=== PATIENT | male | born 1950 | race Caucasian/White ===

== ENCOUNTER → 2019-01-04 10:37 | Outpatient (CLI) | payer MEDICARE, OTHER, SELFPAY ==
[2019-01-04 10:27] VITALS: BMI 42.6
--- NOTE | 2019-01-04 10:40 | RAD_ITS ---
STUDY: X-RAY - PELVIS AND RIGHT HIP REASON FOR EXAM: Right hip pain. TECHNIQUE: 2 views of the pelvis and hip. COMPARISON: None. FINDINGS: There are small pelvic phleboliths. Normal bilateral sacroiliac joints and visualized sacrum. Normal bilateral superior and inferior pubic rami. Normal pubic symphysis. Normal bilateral ischial tuberosities. There are marginal osteophytes of the right femoral head, severe joint space narrowing at the superior medial aspect and subchondral cystic change of the femoral head and acetabulum. RAD/HIP, UNI W/ Pelvis 2-3 Views IMPRESSION: Right hip arthrosis. Electronically Signed: Attila Dupont MD at 13:14 EDT Tel , Service support ,
== END ==
PROVIDERS: Family Provider Internal Medicine; PCP Internal Medicine; Referring Provider Orthopaedic Surgery; Visit Provider Orthopaedic Surgery
DX: M25.551 Pain in right hip (principal)
CPT/HCPCS: 73502

== ENCOUNTER → 2019-02-01 13:54 | Outpatient (CLI) | payer MEDICARE, OTHER, SELFPAY ==
[2019-01-04 10:27] VITALS: BMI 42.6
[2019-02-01 14:54] LABS: Hematocrit 40.4 % (40-54); Hemoglobin 13.8 g/dL (13.0-16.5); Mean Corp Hgb Conc 34.2 g/dL (32-36); Mean Corpuscular Hgb 31.6 pg (27.0-32.0); Mean Corpuscular Volume 92.4 fL (80-94); Platelet Count 194 K/mm3 (150-450); RBC Distribution Width CV 12.7 % (11.6-14.6); RBC Distribution Width SD 43.2 fl (35.1-43.9); Red Blood Count 4.37 M/mm3 (4.6-6.2); White Blood Count 7.3 K/mm3 (4.4-11.0)
[2019-02-01 14:58] LABS: Protein, Urine (Random) 14.7 mg/dL (<11.9); Protein:Creat Ratio 90 mg/g CRE (0-200)
[2019-02-01 15:27] LABS: Albumin, Serum 3.6 g/dL (3.2-5.0); BUN 18 mg/dL (7-18); Calcium,Total 8.8 mg/dL (8.5-10.1); Chloride 111 mmol/L (98-107); Creatinine, Serum 1.38 mg/dL (0.70-1.30); EST Glomerular Filtration Rate 54 mL/min (>60); Est Glom Filt Rate - Afr Amer 66 mL/min (>60); Glucose 86 mg/dL (74-106); Phosphorus 2.9 mg/dL (2.5-4.9); Potassium 4.5 mmol/L (3.5-5.1); Sodium Level 142 mmol/L (136-145)
[2019-02-01 15:35] LABS: Vitamin D,25 Hydroxy 28.2 ng/mL (29.95-100.01)
[2019-02-01 15:37] LABS: PTHIN 115.1 pg/mL (18.4-80.1)
== END ==
PROVIDERS: Family Provider Internal Medicine; PCP Internal Medicine; Referring Provider Internal Medicine Nephrology; Visit Provider Internal Medicine Nephrology
DX: N18.3 Chronic kidney disease, stage 3 (moderate) (principal)
CPT/HCPCS: 36415; 80069; 82306; 82570; 83970; 84156; 85027

== ENCOUNTER 2019-03-12 13:30 | Outpatient (RCR) | payer MEDICARE, OTHER, SELFPAY ==
[2019-01-04 10:27] VITALS: BMI 42.6
--- NOTE | 2019-01-12 15:29 | HP.PTEVAL ---
Patient's Visit Information DAYSI GASTELUM is a 68 year old M referred to Physical Therapy by Lenin Davis DO with a diagnosis of R hip OA. Date of Evaluation: 01/12/19 Physical Therapist: EL Epperson - Visit Plan Frequency: 2-3x /Week Duration: 2 Months Plan: 2-3X/ week for 4-8 weeks for R hip flexability ( quad, ER and IR of the hip, hamstrings and gastroc), strengthening of the R hip, gait training, functional activities such as stairs and sit to stands with HEP (trial of foam rolling??) - Subjective Findings: Pt spent 39 years in . Up until 2010 he has not run or done any exercises. Pt put on 50#. Pts R hip has started to bother him and getting worse overtime. He has been doing less and less cause it hurts to move around. 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 He has had some knee issues but they have gone away. He feels out of balance and hard to go down stairs and has to use the railing and goes step to pattern. He has been getting steadily worse. He has a Level 3 kidney issue and can only take Tylenol if he is out walking around but tries not to take more than 3 doses in a day. Today his hip hurts and kind of torques the knee. He has been a pt of [facility] because of Dr Hendricks. It is hard for him to do stuff around the house and he has 5 acres. said that his hip does not look good and wants him to lose 20# and has to do PT. He has not tried PT for his hip at this time. Pt has pain in the R groin and hard to lay. He has a CPAP machine. He loosens up after he moves in the morning. He wears the support stockings at work cause he sits a lot. - Pain R hip pain Pain Intensity (Out of 10): 0 Pain Intensity Range: 6 Comment: Walking - Objective Gait: Walks with decrease stance time on the R LE and very antalgic gait. Pt has decreased hip flexion AROM ( could get to about 100 degrees B with min A by therapist to get him to that range), He has no hip IR B and decreased B hip ER. LE MMT: R hip flex 4/5 and L hip flex 4+/5, R hip abd 4/5 and L 4+/5, R hip ext 3+/5 and L 4-/5, he is able to heel raise without UE assist and he is able to toe raise within a restricted ROM. B knee flex and knee ext 4+/5. Pt has extremely tight Quads, Hamstrings, gastroc and hip ER/IR. Sit to stand: is able to stand without use of UE but has some compensation to him fluid movment. - Goals Goal 1:: I HEP Goal Time Frame: 4-6 Weeks Goal 2:: Decrease R hip pain to 1/10 with walking Goal Time Frame: 4-6 Weeks Goal 3:: Increase hip strength on the R by 1/2 muscle grade (LE MMT: R hip flex 4/5 and L hip flex 4+/5, R hip abd 4/5 and L 4+/5, R hip ext 3+/5 and L 4-/5, he is able to heel raise without UE assist and he is able to toe raise within a restricted ROM. B knee flex and knee ext 4+/5). Goal Time Frame: 4-6 Weeks Goal 4:: Walk with less of an antalgic gait with more equal stance time. Goal Time Frame: 4-6 Weeks - Rehabilitation Potential Rehabilitation Potential: Good - Anticipated Interventions Patient/Client Instruction: Educate patient on: Condition For the Purpose of:: To decrease pain, To increase ROM, To improve nutrient delivery to tissue, To improve muscle performance and motor function, To improve ability to perform ADL's, To increase tolerance to activity/condition/position, To improve performance and independence with ADL's, To improve ability of physical actions for home/community/work/leisure, To improve gait and locomotor functions, To improve health of tissue, To decrease soft tissue restriction, To increase flexibility/ROM Therapeutic Exercise to Include: Strength training, Postural training, Flexibilty training, Gait and locomotor training, Passive ROM, Active ROM, Dynamic Lumbar Stabilization For the Purpose of:: To decrease pain, To increase ROM, To improve nutrient delivery to tissue, To improve muscle performance and motor function, To improve ability to perform ADL's, To increase tolerance to activity/condition/position, To improve performance and independence with ADL's, To improve ability of physical actions for home/community/work/leisure, To improve gait and locomotor functions, To improve health of tissue, To increase flexibility/ROM Functional Training to Include: Gait training For the Purpose of:: To improve gait and locomotor functions Thank you for the opportunity to evaluate your patient. For Medicare and Medicare HMO plans, please review the plan of care and approve it. It will need to be FAXED BACK to us at [phone] for Medicare purposes. For Medicare only, by signing this I certify the plan of care. Please let me know if there are questions or concerns regarding this plan of care. Physician Signature: Date:
--- NOTE | 2019-02-05 13:13 | HP.PTREVAL ---
Lenin Davis, DO, It has been my pleasure to treat DAYSI GASTELUM over the last 10 visits for R hip OA. Please see the progress note below for an update on the physical therapy plan of care! Subjective: He has pain with activities... can still do them but hurts. He can sit with no pain for sure. Objective/Function: Gait: walks with decrease stance time on the R LE. LE MMT: R hip flex 4/5 and L hip flex 4+/5, R hip abd 4/5 and L 4+/5. B knee flex and knee ext 4+/5). Stairs: up and down stairs recip with railing with increase pain on the R knee. Plan Plan: (Will shoot for 1-2X/ week spread out and pt continue on his own somewhat). 2-3X/ week for 4-8 weeks for R hip flexability (quad, ER and IR of the hip, hamstrings and gastroc), strengthening of the R hip, gait training, functional activities such as stairs and sit to stands with HEP (trial of foam rolling??) Goals Goal 1:: I HEP Goal Time Frame: 4-6 Weeks Goal Progress: Goal Met Goal 2:: Decrease R hip pain to 1/10 with walking Goal Time Frame: 4-6 Weeks Goal 3:: Increase hip strength on the R by 1/2 muscle grade (LE MMT: R hip flex 4/5 and L hip flex 4+/5, R hip abd 4/5 and L 4+/5, R hip ext 3+/5 and L 4-/5, he is able to heel raise without UE assist and he is able to toe raise within a restricted ROM. B knee flex and knee ext 4+/5). Goal Time Frame: 4-6 Weeks Goal 4:: Walk with less of an antalgic gait with more equal stance time. Goal Time Frame: 4-6 Weeks Anticipated Interventions Patient/Client Instruction: Educate patient on: Condition For the Purpose of:: To decrease pain, To increase ROM, To improve nutrient delivery to tissue, To improve muscle performance and motor function, To improve ability to perform ADL's, To increase tolerance to activity/condition/position, To improve performance and independence with ADL's, To improve ability of physical actions for home/community/work/leisure, To improve gait and locomotor functions, To improve health of tissue, To decrease soft tissue restriction, To increase flexibility/ROM Therapeutic Exercise to Include: Strength training, Postural training, Flexibilty training, Gait and locomotor training, Passive ROM, Active ROM, Dynamic Lumbar Stabilization For the Purpose of:: To decrease pain, To increase ROM, To improve nutrient delivery to tissue, To improve muscle performance and motor function, To improve ability to perform ADL's, To increase tolerance to activity/condition/position, To improve performance and independence with ADL's, To improve ability of physical actions for home/community/work/leisure, To improve gait and locomotor functions, To improve health of tissue, To increase flexibility/ROM Functional Training to Include: Gait training For the Purpose of:: To improve gait and locomotor functions Please do not hesitate to contact me at [phone] by phone or if you have questions or concerns regarding this new plan of care! Sincerely, Vy Horta MPT
--- NOTE | 2019-03-12 14:09 | HP.PTDCSUM ---
HP - PT D/C Summary It has been my pleasure to treat DAYSI GASTELUM under orders from Lenin Davis DO, for the diagnosis of R hip OA for a total of 19 visit(s). Discharge Date: 03/12/19 Please see the following information for a summary of their discharge status. - Subjective Subjective: Yesterday moringin he hyperextend his R knee on the last step and torqued it pretty good. - Pain R hip pain Pain Intensity (Out of 10): 4 R knee pain Pain Intensity (Out of 10): 7 - Overall Improvement % Improvement: 25 - Objective Objective/Function: Gait: still walks with slight decrease stance time on the R but more equal weight bearing since the initial eval. LE MMT: R hip flex 4-/5, R hip abd 4+/5, R knee flex 3+/5 and R knee ext 4-/5 (pt is more sore today due to stepping down off of a step at home). Stairs: Up and down recip with increase hesitancy descending the stairs as pt feels that his R knee will give out and uses B rails. - Goals Goal 1:: I HEP Goal Progress: Goal Met Goal 2:: Decrease R hip pain to 1/10 with walking Goal Progress: Progressing Goal 3:: Increase hip strength on the R by 1/2 muscle grade (LE MMT: R hip flex 4/5 and L hip flex 4+/5, R hip abd 4/5 and L 4+/5, R hip ext 3+/5 and L 4-/5, he is able to heel raise without UE assist and he is able to toe raise within a restricted ROM. B knee flex and knee ext 4+/5). Goal Progress: Progressing Goal 4:: Walk with less of an antalgic gait with more equal stance time. Goal Progress: Goal Met - Plan Plan: DC PT to [facility] program - D/C Information Discharge Comments: DC PT to HEP If there are questions or concerns regarding this patient's physical therapy, please feel free to call me at [phone]. Thank you for the referral of this patient. Sincerely, Vy Horta, MPT
== END 2019-03-12 14:51 | disposition home or self-care (01) ==
LOC: PT 13:30
PROVIDERS: Family Provider Internal Medicine; PCP Internal Medicine; Referring Provider Orthopaedic Surgery; Visit Provider Orthopaedic Surgery
DX: M16.11 Unilateral primary osteoarthritis, right hip (principal)
CPT/HCPCS: 97110; 97161; 97530

== ENCOUNTER 2019-05-10 15:30 | Outpatient (RCR) | payer MEDICARE, OTHER, SELFPAY ==
[2019-03-19 07:44] VITALS: BMI 42.8
--- NOTE | 2019-03-26 16:20 | HP.PTEVAL_ITS ---
Patient's Visit Information DAYSI GASTELUM is a 68 year old M referred to Physical Therapy by Lenin Davis DO with a diagnosis of RIGHT KNEE AND RIGHT HIP OA. Date of Evaluation: 03/26/19 Physical Therapist: Sammy Parikh, PT, Cert MDT, OCS - Visit Plan Frequency: 2x /Week Duration: 4 Weeks Plan: PT INTERVENTIONS WITH AGQUATIC PT FOR ROM/STRENGTH/FLEXABLITY OF HIP KNEE - Subjective Findings: This 68 y/o male presents to physical therapy with with right knee and hip OA. Patient has had right hip pain and knee pain for 2 years. Location of pain groin right ,and global lateral aspect . Symptoms described as a sche. Aggravating factors worse with standing ,walking ,stairs one step a at a time. Allevating factors rest ,teylonal. Patient denies parathesai/tingling. Patient had PT for 2 months working on ROM /strength,but soreness never got better. Patient return to DR anand cortizone injection knee. Recommended Aquatic PT. Patient could be canditate for THR surgery. patient sleeping okay. Patient affectrs ADL'S ,housework tasks and job demands. Patient pain in hip and knee affects QOL and function.Patient limping worse overtime. SOCAIL: . VOCATION: [employer] - Pain Right Hip Pain Intensity (Out of 10): 5 Pain Intensity Range: 10 Right Knee Pain Intensity (Out of 10): 2 Pain Intensity Range: 10 - Objective POSTURE: mild foward posture. GAIT: antalgic gait right ,mild foward posture. NEURO: denies parathesia/tingling ,reflexes L3-4,L4-5,L5-S1. PALAPTION: unremarkable. SYMMTRIES: ALIGN. AROM: knee flexion 0-110 supine. PROM: hip flexion 85 degrees,ER 25 degrees, IR 0-10 degrees,hip abd 20 degrees. MMT: quads/hams 4/5,hip flexion 4-/5,hip abd 4-/5 - Special Tests R Hip Scour: Positive R Hip CARLOS - Intraarticular Pathology: Positive R Hip Blanca - IT Band: Positive - Goals Goal 1:: Patient to be Independant with Aquatic PT Goal Time Frame: 4-6 Weeks Goal 2:: Patient to decrease hip pain by 40 % > or to improve function with walking. Goal Time Frame: 4-6 Weeks Goal 3:: Patient to imrove gait pattern with less antalgic gait 60% of the time. Goal 4:: Patient to incease ROM of right hip and knee by 5-10 degrees or > to improve vfunction. Goal Time Frame: 4-6 Weeks Goal 5:: Patient to improve LFES SCPORE by 5-10 points or > to improve QOL and function. Goal Time Frame: 4-6 Weeks - Rehabilitation Potential Physical Therapy Diagnosis: This patient has severe OA of right hip and knee pain with poor ROM ,strength of hip ,impairs ADL's with walking ,standing and function thus benifit froms Skilled PT Rehabilitation Potential: Good - Anticipated Interventions Patient/Client Instruction: Educate patient on: Condition, Plan of Care For the Purpose of:: To decrease pain, To increase ROM, To improve muscle performance and motor function, To improve ability to perform ADL's, To increase tolerance to activity/condition/position, To improve ability of physical actions for home/community/work/leisure, To improve gait and locomotor functions, To improve health of tissue, To decrease soft tissue restriction, To increase flexibility/ROM, To improve ability to perform tasks related to life management Therapeutic Exercise to Include: Strength training, Balance training, Flexibilty training, In an aquatic setting, Passive ROM, Active ROM Comment: HIP/KNEE For the Purpose of:: To decrease pain, To increase ROM, To improve muscle performance and motor function, To increase tolerance to activity/condition/position, To improve performance and independence with ADL's, To improve ability of physical actions for home/community/work/leisure, To improve gait and locomotor functions, To improve health of tissue, To decrease soft tissue restriction, To reduce risk of recurrence, To improve ability to perform tasks related to life management Thank you for the opportunity to evaluate your patient. For Medicare and Medicare HMO plans, please review the plan of care and approve it. It will need to be FAXED BACK to us at [phone] for Medicare purposes. For Medicare only, by signing this I certify the plan of care. Please let me know if there are questions or concerns regarding this plan of care. Physician Signature: Date:
--- NOTE | 2019-05-10 16:00 | HP.PTDCSUM ---
HP - PT D/C Summary It has been my pleasure to treat DAYSI GASTELUM under orders from Lenin Davis DO, for the diagnosis of RIGHT KNEE AND RIGHT HIP OA for a total of 9 visit(s). Discharge Date: 05/10/19 Please see the following information for a summary of their discharge status. - Subjective Subjective: Patient reports pain is. same . But strength is better.Been using cane. Patient has Health and wellness membership. RTD to discuss possible surgery - Pain Right Hip Pain Intensity (Out of 10): 3 Right Knee Pain Intensity (Out of 10): 3 - Overall Improvement % Improvement: 30 - Objective Objective/Function: POSTURE: mild foward posture. GAIT: ambulates with antalgic gait with cane. MMT: quads/hams 4/5,hip flexion 4-/5,hip abd 3+/5. PROM: hip flexion 90 degrees ,abd 30 degrres,IR 10 -0 degrees - Goals Goal 1:: Patient to be Independant with Aquatic PT Goal Progress: Goal Met Goal 2:: Patient to decrease hip pain by 40 % > or to improve function with walking. Goal Progress: Progressing Goal 3:: Patient to imrove gait pattern with less antalgic gait 60% of the time. Goal Progress: Progressing Goal 4:: Patient to incease ROM of right hip and knee by 5-10 degrees or > to improve vfunction. Goal Progress: Progressing Goal 5:: Patient to improve LFES SCPORE by 5-10 points or > to improve QOL and function. Goal Progress: Goal Met - Plan Plan: D/C PLAN FOR AQUATIC THERAPY - D/C Information Discharge Comments: RTD. AQUATICS If there are questions or concerns regarding this patient's physical therapy, please feel free to call me at [phone]. Thank you for the referral of this patient. Sincerely, Sammy Parikh, PT, Cert MDT, OCS
== END 2019-05-10 19:00 | disposition home or self-care (01) ==
LOC: PT 15:30
PROVIDERS: Family Provider Family Medicine; PCP Family Medicine; Referring Provider Orthopaedic Surgery; Visit Provider Orthopaedic Surgery
DX: M16.11 Unilateral primary osteoarthritis, right hip (principal); M17.11 Unilateral primary osteoarthritis, right knee
CPT/HCPCS: 97113; 97162; 97530

== ENCOUNTER → 2019-07-30 14:00 | Outpatient (CLI) | payer MEDICARE, OTHER, SELFPAY ==
[2019-03-19 07:44] VITALS: BMI 42.8
[2019-07-30 14:34] VITALS: BP 145/97; PULSE 60; RESP 16; TEMP 36.5; O2SAT 94; BMI 42.3
[2019-07-30 15:12] LABS: Absolute Lymphocyte Count 1.55 X10^3/uL (0.83-4.51); Absolute Neutrophil Count 4.3 X10^3/uL (2.0-7.7); Basophil# 0.04 X10^3/uL; Basophil% 0.6 % (0-1); Eosinophil# 0.12 X10^3/uL; Eosinophils% 1.7 % (0-5); Hematocrit 39.5 % (40-54); Hemoglobin 13.7 g/dL (13.0-16.5); Lymphocyte # 1.55 X10^3/ul (4.0); Lymphocyte % 22.5 % (19-41); Mean Corp Hgb Conc 34.7 g/dL (32-36); Mean Corpuscular Hgb 31.7 pg (27.0-32.0); Mean Corpuscular Volume 91.4 fL (80-94); Mean Platelet Vol. 8.8 fl (6.2-12.0); Monocyte# 0.91 X10^3/uL; Monocyte% 13.2 % (0-10); NRBC Flagged by Analyzer 0 % (0-5); Neutrophil # 4.25 X10^3/uL (2.7-7.7); Neutrophil % 61.6 % (47-70); Platelet Count 190 K/mm3 (150-450); RBC Distribution Width CV 13.1 % (11.6-14.6); RBC Distribution Width SD 43.4 fl (35.1-43.9); Red Blood Count 4.32 M/mm3 (4.6-6.2); White Blood Count 6.9 K/mm3 (4.4-11.0)
[2019-07-30 15:42] LABS: Anion Gap 4 (5-15); BUN 24 mg/dL (7-18); BUN/Creat Ratio 15.8 RATIO (10-20); Chloride 112 mmol/L (98-107); Creatinine, Serum 1.52 mg/dL (0.70-1.30); EST Glomerular Filtration Rate 49 mL/min (>60); Est Glom Filt Rate - Afr Amer 59 mL/min (>60); Estimated Creatinine Clearance 47.36 ml/min; Glucose 102 mg/dL (74-106); Potassium 4.2 mmol/L (3.5-5.1); Sodium Level 141 mmol/L (136-145); Thyroid Stim Hormone (TSH) 2.41 uIU/mL (0.358-3.74)
--- NOTE | 2019-07-30 23:08 | PCM.HP.BLA ---
History and Physical History and Physical [facility] Patient Name: Esvin Valdes : 1950 From: JOSE ARANGO PA-C DATE OF SURGERY: 08/25/2019 SCHEDULED PROCEDURE: right total hip arthroplasty HISTORY OF PRESENT ILLNESS: Preoperative history and physical exam was performed on July 30, 2019. This is a 68-year-old male who has been having ongoing pain in the right hip for over 2 years. Pain can reach as high as a 7/10. Patient's pain is aching and sore. Pain as being constant. Patient does have start up pain. Pain is increased with going up and down stairs, walking, and standing for extended periods of time. Patient has difficult time with activities of daily living including bathing/showering, getting dressed, housework, shopping, and leisure activities. Patient has fallen/stumbled secondary hip pain. Patient states he feels unsafe using steps, lateral, carrying things. He has tried rest with minimal relief. Heat and elevation of not provided any relief. Patient has attempted physical therapy with no relief in symptoms. He has tried Tylenol without relief. Patient has had previous corticosteroid injection. He has been using a cane for approximately 3 months. Patient denies any recent chest pain, shortness of breath, fevers chills, recent infections. We are obtaining surgical clearance from the primary care physician Dr. Catherine. Patient has medical history pertinent for hypertension, kidney disease/renal failure stage III, sleep apnea, thyroid disease. After failing conservative measures and discussing treatment options with Dr. Sabas Harrington, the patient does wish to proceed with a right total hip arthroplasty. REVIEW OF SYSTEMS: ROS: Const: Denies change in appetite, fever and weight change. CV: Denies chest pain, heart murmur and irregular heartbeat. Resp: Denies cough, pneumonia, shortness of breath, tuberculosis and wheezing. GI: Reports heartburn, but denies constipation, diarrhea, nausea, rectal itching, bloody stools and vomiting. : Denies incontinence. Musculo: Reports gait disturbance, leg swelling, trouble walking and weakness, but denies pain. Skin: Denies Raynaud's, history of shingles and tattoo. Neuro: Denies ambulatory dysfunction, dizziness, numbness/tingling and tremor. Psych: Denies anxiety, insomnia and stress. Adan/Lymph: Denies anemia, bleeding/bruising tendency and past transfusion. Reviewed, no changes. PAST MEDICAL HISTORY: Advance Care Plan: No Advance Directives Effective Date: 07/22/2019 PMH: Medical Problems: Arthritis, High Blood Pressure, Hypercholesterolemia, Kidney Disease/Renal Failure, Sleep Apnea, Thyroid Disease, Diverticulitis Accidents: Fracture - (1962) LT arm, [facility] Surgical Hx: Tubular adenoma of colon - (2105) [facility], Dr. Uribe Anesthesia Complications: None Assistive Devices: Glasses, Cane Reviewed and updated. SOCIAL HISTORY: SH: Marital: .Occupation: Retired.Work Status: Retired.Hand Dominance: Left-handed. Personal Habits: Cigarette Use: Never Smoked Cigarettes.Smokeless Tobacco: Never Used Smokeless Tobacco.E-Cigarette Use: Never used.Alcohol: Occasionally.Drug Use: Denies Use.Enjoy Exercising: Exercises 1-3 x/month. Reviewed, no changes. VITALS: Ht: 70.5 Wt: 296lb Wt k.266 BMI: 41.9 BP: 150/74 Pulse: 68 Resp: 16 T: 98.2 T: 36.8C ALLERGIES: Penicillin Lisinopril - cough Thiazide-Type Diuretics - leg swelling MEDICATIONS: Tylenol Extra Strength 500 mg 2 by mouth every 8 hours, 2-3 times daiy, Levothyroxine Sodium 112mcq daily, Labetalol HCL 200 mg twice daily, Valsartan 160 mg once daily, Atorvastatin Calcium 10 mg 1 by mouth every day, Sildenafil Citrate 0.5 mg as needed, Prilosec OTC 20 mg once daily PRE-OP EXAM: General appearance:NORMAL Other: Eyes: Conjunctivae and lids: NORMAL Pupils: ERR Ears, Nose, Mouth, and Throat: NORMAL Other: Inspection of lips, teeth and gums: NORMAL Other: Neck: Examination of neck: no masses noted. Respiratory: Assessment of respiratory effort: NORMAL Other: Auscultation of lungs: clear to auscultation no wheezes, rhonchi or rales. Cardiovascular: Auscultation of heart: regular rate and rhythm, no murmurs, gallops or rubs. Exam of carotid arteries: NORMAL Other: Gastrointestinal: Exam of abdomen: soft, nontender, nondistended bowel sounds present. PHYSICAL EXAMINATION: She walks with an antalgic gait. Right hip is cool to touch. Patient has obligatory external rotation. Hip flexion 65, internal rotation neutral, 25 external rotation. Positive pain with rotation and flexion. Sensation intact to light touch. Neurovascularly intact. IMAGING STUDIES: X-rays of the right hip reveal flattening of the femoral head, joint space narrowing, subchondral sclerosis, subchondral cyst formation, osteophyte formation consistent with severe stage IV osteoarthritis. IMPRESSION: 1. Severe right hip osteoarthritis 2. Hypertension 3. Stage III kidney disease renal failure 4. Sleep apnea with use of CPAP 5. Thyroid disease 6. Hypercholesterolemia 7. History of diverticulitis PLAN: Dr. Sabas Harrington did discuss and review with the patient all treatment options including surgical versus nonsurgical options. Patient does wish to proceed with the above-stated procedure. Potential risks, benefits, and complications of the procedure were discussed in detail including but not limited to , infection, nerve and blood vessel damage, persistent pain, numbness, tingling, paresthesias, blood clot, pulmonary embolism, and requirement for possible further surgery. The patient expressed full understanding and has no further questions for the doctor. Patient does agree to proceed with the above-stated procedure and has signed the surgery consent form. This dictation was created using voice recognition software. Phonetic and/or grammatical errors may exist. ___ I have re-examined the patient. There are no clinical changes since date of exam. ___ See progress notes for changes. ___ Dictated on admission Date: Time: Signature:
== END ==
PROVIDERS: Anesthesiology; PCP Family Medicine; Referring Provider Specialist; Visit Provider Specialist
DX: M16.11 Unilateral primary osteoarthritis, right hip (principal); I12.9 Hypertensive chronic kidney disease with stage 1 through stage 4 chronic kidney disease, or unspecified chronic kidney disease; N18.3 Chronic kidney disease, stage 3 (moderate); E07.9 Disorder of thyroid, unspecified; G47.30 Sleep apnea, unspecified; E78.00 Pure hypercholesterolemia, unspecified; Z79.899 Other long term (current) drug therapy; Z88.0 Allergy status to penicillin; Z88.8 Allergy status to other drugs, medicaments and biological substances
CPT/HCPCS: 80048; 84443; 85025; 87081; 93005

== ENCOUNTER → 2019-07-30 15:14 | Outpatient (CLI) | payer MEDICARE, OTHER, SELFPAY ==
[2019-03-19 07:44] VITALS: BMI 42.8
[2019-07-30 14:34] VITALS: BMI 42.3
--- NOTE | 2019-07-30 15:17 | CT_ITS ---
INDICATION: Osteoarthritis presurgical planning COMPARISON: None. TECHNIQUE: CT of the pelvis and knees without contrast. CT scan done according to ALARA (As Low As Reasonably Achievable). FINDINGS: The bones of the pelvis are intact and located. There are moderate bilateral degenerative changes in the hip joints. Knees are unremarkable. Soft tissues of the pelvis are intact. CT/Extremity Lower without Contra IMPRESSION: Preoperative planning/measurement scan for surgical procedure. Electronically Signed: Salty Washington, at 16:01 EST Tel , Service support ,
== END ==
PROVIDERS: PCP Family Medicine; Referring Provider Specialist; Visit Provider Specialist
DX: M16.11 Unilateral primary osteoarthritis, right hip (principal)
CPT/HCPCS: 73700; 80048; 84443; 85025; 87081; 93005

== ENCOUNTER 2019-10-08 05:33 | Day surgery (SDC) | payer MEDICARE, OTHER, SELFPAY ==
[2019-07-30 14:34] VITALS: BMI 42.3
[2019-10-05 15:11] LABS: Absolute Lymphocyte Count 1.63 X10^3/uL (0.83-4.51); Absolute Neutrophil Count 5.5 X10^3/uL (2.0-7.7); Basophil# 0.04 X10^3/uL; Basophil% 0.5 % (0-1); Eosinophil# 0.15 X10^3/uL; Eosinophils% 1.8 % (0-5); Hemoglobin 14.1 g/dL (13.0-16.5); Lymphocyte # 1.63 X10^3/ul (4.0); Lymphocyte % 19.3 % (19-41); Mean Corp Hgb Conc 34.4 g/dL (32-36); Mean Corpuscular Hgb 31.1 pg (27.0-32.0); Mean Corpuscular Volume 90.3 fL (80-94); Monocyte# 1.11 X10^3/uL; Monocyte% 13.1 % (0-10); NRBC Flagged by Analyzer 0 % (0-5); Neutrophil % 64.9 % (47-70); Platelet Count 204 K/mm3 (150-450); RBC Distribution Width CV 12.7 % (11.6-14.6); RBC Distribution Width SD 41.6 fl (35.1-43.9); Red Blood Count 4.54 M/mm3 (4.6-6.2); White Blood Count 8.5 K/mm3 (4.4-11.0)
[2019-10-05 16:29] LABS: Anion Gap 7 (5-15); BUN 25 mg/dL (7-18); BUN/Creat Ratio 19.5 RATIO (10-20); Chloride 107 mmol/L (98-107); Creatinine, Serum 1.28 mg/dL (0.70-1.30); EST Glomerular Filtration Rate 59 mL/min (>60); Est Glom Filt Rate - Afr Amer 72 mL/min (>60); Glucose 91 mg/dL (74-106); Potassium 4.3 mmol/L (3.5-5.1); Sodium Level 136 mmol/L (136-145)
--- NOTE | 2019-10-05 16:29 | PCM.HP.BLA ---
History and Physical Date of Admission: 10/08/19 History and Physical Patient Name: Esvin Valdes : 1950 From: MICHELLE WOLFE NP DATE OF SURGERY: 10/08/2019 SCHEDULED PROCEDURE: Right total hip arthroplasty HISTORY OF PRESENT ILLNESS: Preoperative history and physical exam was performed on October 04, 2019. This 68-year-old male who has been having ongoing right hip pain for 2 years. The pain is 7 on a scale of 10 at worst. He describes the pain as constant, aching and sore. The patient does experience start up pain. The the pain is increased with going up and down stairs, walking and standing for prolonged periods of time. The patient has difficult time performing activities of daily living including bathing/showering, getting dressed, housework, shopping and leisure activities. The patient has fallen/tumbled secondary to his hip pain. The patient states he feels unsafe using steps and carrying things. Previous treatments include rest, heat and elevation with minimal to no relief. The patient has attempted physical therapy with no relief. Additionally, he has attempted Tylenol without relief. The patient has had a previous cortisone injection. He ambulates with the use of bilateral cane for approximately 4 months. Patient denies any fevers, chills, shortness of breath, chest pain, difficulty breathing or recent infections. Surgical clearance has been obtained from his primary care physician Dr. Catherine. The patient does have a medical history pertinent for hypertension, kidney disease/renal failure stage III, sleep apnea thyroid disease. After failing conservative measures and discussing treatment options with Dr. Sabas Harrington the patient does wish to proceed with a right total hip arthroplasty. REVIEW OF SYSTEMS: ROS: Const: Denies change in appetite, fever and weight change. CV: Denies chest pain, heart murmur and irregular heartbeat. Resp: Denies cough, pneumonia, shortness of breath, tuberculosis and wheezing. GI: Reports heartburn, but denies constipation, diarrhea, nausea, rectal itching, bloody stools and vomiting. : Denies incontinence. Musculo: Reports gait disturbance, leg swelling, trouble walking and weakness, but denies pain. Skin: Denies Raynaud's, history of shingles and tattoo. Neuro: Denies ambulatory dysfunction, dizziness, numbness/tingling and tremor. Psych: Denies anxiety, insomnia and stress. Adan/Lymph: Denies anemia, bleeding/bruising tendency and past transfusion. Reviewed, no changes - 10/05/2019 at 4:09 pm by Michelle Wolfe PAST MEDICAL HISTORY: Advance Care Plan: No Advance Directives Effective Date: 07/22/2019 PMH: Medical Problems: Arthritis, High Blood Pressure, Hypercholesterolemia, Kidney Disease/Renal Failure, Sleep Apnea, Thyroid Disease, Diverticulitis Accidents: Fracture - (1962) LT arm, [facility] Complications: None Assistive Devices: Glasses, Cane Reviewed, no changes - 10/05/2019 at 4:09 pm by Michelle Wolfe SOCIAL HISTORY: SH: Marital: .Occupation: Retired.Work Status: Retired.Hand Dominance: Left-handed. Personal Habits: Cigarette Use: Never Smoked Cigarettes.Smokeless Tobacco: Never Used Smokeless Tobacco.E-Cigarette Use: Never used.Alcohol: Occasionally.Drug Use: Denies Use.Enjoy Exercising: Exercises 1-3 x/month. Reviewed, no changes - 10/05/2019 at 4:09 pm by Michelle Wolfe VITALS: Ht: 70 Wt: 302lb Wt k.987 BMI: 43.3 BP: 165/84 Pulse: 59 Resp: 17 T: 97.5 T: 36.4C ALLERGIES: Penicillin Lisinopril - cough Thiazide-Type Diuretics - leg swelling MEDICATIONS: Promethazine HCL 12.5 mg 1-2 tablets by mouth every 6 hours, Oxycodone HCL 5 mg 1-2 by mouth every 4 hours, Pepcid 20 mg 1 po daily, Tylenol Extra Strength 500 mg 2 by mouth every 8 hours, 2-3 times daiy, Levothyroxine Sodium 112mcq daily, Labetalol HCL 200 mg twice daily, Valsartan 160 mg once daily, Atorvastatin Calcium 10 mg 1 by mouth every day, Sildenafil Citrate 0.5 mg as needed, Prilosec OTC 20 mg once daily PRE-OP EXAM: General appearance:NORMAL Other: Eyes: Conjunctivae and lids: NORMAL Pupils: ERR Ears, Nose, Mouth, and Throat: NORMAL Other: Inspection of lips, teeth and gums: NORMAL Other: Respiratory: Assessment of respiratory effort: NORMAL Other: Auscultation of lungs: clear to auscultation no wheezes, rhonchi or rales. Cardiovascular: Auscultation of heart: regular rate and rhythm, no murmurs, gallops or rubs. Gastrointestinal: Exam of abdomen: soft, nontender, non-distended bowel sounds present. Neurological: see below Psychiatric: Orientation to time, place and person: NORMAL Other: Mood and affect: NORMAL Other: PHYSICAL EXAMINATION: The patient ambulates with an antalgic gait. Right hip is cool to touch. He has an obligatory external rotation. Hip flexion to 65. Internal rotation to neutral. External rotation 25. Pain with rotation and flexion. Sensation intact to light touch. Neurovascularly intact. IMAGING STUDIES: X-rays obtained on July 22, 2019 of right hip reveal flattening of the femoral head, joint space narrowing, subchondral sclerosis, subchondral cyst formation, osteophyte formation consistent with severe stage IV osteoarthritis. IMPRESSION: 1. Severe right hip osteoarthritis 2. Hypertension 3. Stage III kidney disease, renal failure 4. Sleep apnea with use of CPAP 5. Thyroid disease 6. Hypercholesterolemia 7. History of diverticulitis PLAN: Dr. Sabas Harrington did discuss with the patient all treatment options include surgical versus nonsurgical options. The patient does wish to proceed with the above stated procedure. Potential risk, benefits and complications of the procedure were discussed in detail including but not limited to , infection, nerve and blood vessel damage, persistent pain, numbness, tingling, paresthesias, blood clot, pulmonary embolism and requirement for possible further surgery. The patient expressed full understanding and has no further questions for the doctor. Patient does agree to proceed with the above-stated procedure and has signed the surgery consent form. This dictation was created using voice recognition software. Phonetic and/or grammatical errors may exist. ___ I have re-examined the patient. There are no clinical changes since date of exam. ___ See progress notes for changes. ___ Dictated on admission Date: Time: Signature:
[2019-10-08] VITALS (9 sets, daily range): BP systolic 132–173; BP diastolic 70–96; PULSE 50–61; RESP 16–18; TEMP 36.6–36.8; O2SAT 94–100; BMI 43.8
[2019-10-08] MEDS: Gabapentin 600 MG Tablet PO (06:09)
[2019-10-08] MEDS: Acetaminophen 500 MG Tablet 1000 MG PO ×2 (06:09→13:49)
[2019-10-08] MEDS: Lactated Ringers 1,000 ML 999 ML IV ×2 (06:11→10:46)
[2019-10-08 06:45] LABS: Bedside Glucose 93 mg/dL (70-110)
--- NOTE | 2019-10-08 07:19 | RAD_ITS ---
STUDY: X-RAY - PELVIS AND RIGHT HIP REASON FOR EXAM: Male, 68 years old. Post op total hip replacement TECHNIQUE: 2 views of the pelvis and hip. COMPARISON: Comparison is made with prior study dated January 04, 2019. FINDINGS: The patient is status post right total hip replacement. The alignment. Marked degree of osteoarthritis of the left hip joint. RAD/Hip Min 2 Views (Portable) IMPRESSION: Status post right total hip replacement. There is good alignment. Marked degree of osteoarthritis involving the left hip joint. Electronically Signed: Von Shaffer, at 11:14 EDT , Service support ,
--- NOTE | 2019-10-08 07:27 | OP.PCM_ITS ---
Report of Operation Date of Procedure: 10/08/19 Pre-Operative Diagnosis: Right hip primary osteoarthritis Post-Operative Diagnosis: Right hip primary osteoarthritis Surgery/Procedure Performed:: Right minimally invasive direct anterior hip replacement Description of Surgical Findings:: Stable hip with equal leg lengths mortgage or loan underwriter: Michelle Wolfe Type of Anesthesia:: Spinal Anesthesiologist: Nishant Aden Special Medications: 2 g Ancef, 1 g TXA at incision, 1 g TXA closure, 10 mg Decadron, joint cocktail (5 mg Duramorph, 30 mL of 0.5% Ropivicaine, 1000 units of epinephrine, 30 mg of Toradol) Specimen's removed: Bony cuts Estimated Blood Loss (mL): 300 Fluids Replaced: 1500 mL crystalloid Description of Procedure: Components used: 1. Accolade 2 [place] femoral stem size 7 127? 2. [place] trident 2 acetabular shell size 62 mm 3. [place] X3 polyethylene G 4. Debi Biolox delta 36mm, -2.5mm femoral head Brief history operative indications: 68 yo m who failed conservative measures for their hip osteoarthritis. X-rays were consistent with osteoarthritis including joint space narrowing, osteophyte formation and subchondral cysts. Total hip replacement was discussed with the patient with risks and benefits including but not limited to blood loss, DVTs, PEs, neurovascular damage, dislocation, general risks of anesthesia including loss of life. Patient demonstrated an understanding medical clearance is obtained the patient was consented for surgery. Procedure: On the date of procedure the patient's R hip was marked in the preoperative area. Patient was then taken back to the operating room where anesthesia assu med control of the C-spine and airway and administered anesthetic. Patient was transferred to the operating table and placed in the supine position. The hips were placed at the break of the bed and a sacral bump was placed. The R lower extremity was then prepped out in a sterile fashion using chlorhexidine while the surgeon scrubbed. The PA was vital in the positioning of the patient. Upon reentering the room the R lower extremity was draped in the standard orthopedic fashion and the incision was marked. A timeout was called and everyone agreed upon the side, the site, the procedure be performed, antibody given, and patient's identity. At this time incision was made through skin, subcutaneous tissue, and fat down to fascia. The fascia was then incised and the TFL was retracted laterally. A retractor was placed on the lateral border of the femoral neck. Attention was directed to the inferior portion of the approach and all crossing vessels were identified and appropriately coagulated. A retractor was then placed on the medial portion of the femoral neck. The anterior capsule was then cleared of all soft tissue and then H shaped capsulotomy was made. The retractors were then placed inside the capsule. The femoral neck was identified and a cleanup cut was made. At this time a power corkscrew was used to remove the femoral head. Attention was then turned toward the acetabulum where the soft tissues were appropriately retracted and the acetabulum was sequentially reamed to 62 mm. A 62 mm cup was then selected and impacted into place. Acetabular liner was impac nicole into place and locking mechanism was verified. The position of the acetabular cup was then verified under live fluoroscopy. Attention was then turned to the femur. Soft tissue releases on the medial and lateral femoral neck were appropriately done, the leg was externally rotated and lateralized. A [place] retractor was placed medially and proximally to the greater trochanter this allowed appropriate visualization and exposure of the femoral canal. Rongeour was then used to remove excess lateral bone. A canal finder and entry broach were used to open the proximal canal. Once we verified we were down the femoral canal we subsequently broached up to a size 7 femur. The appropriate neck was placed in the previously selected head was trialed with a -2.5 mm neck. Traction was pulled and the hip was reduced with internal rotation. Once it was appropriately reduced and stability was checked. There was minimal shuck, equal leg lengths and appropriate stability with hyperextension and external rotation as well as with 90? flexion and internal rotation. Fluoroscopy was then also used to verify the position of the components and leg lengths using the contralateral side for comparison. The trial components were then dislocated the proximal femur was again exposed and the components were removed from the wound. The final components were verified and opened. The wound was copiously irrigated out with normal saline. The acetabulum was checked for any residual debris. The final components were placed and impacted. Traction and internal rotation were again used to reduce the hip. After adequate reduction the hip remained stable with appropriate leg lengths. The final components were once again checked with live fluoroscopy and were found to be satisfactory. The wound was then copiously irrigated with normal saline once more, and hemostasis was obtained. Closure was then done using #1 Vicryl runner to close the fascia. A 2-0 vicryl interuppted sutures were used to close the subcutaneous skin. A 3-0 Monocryl and Steri-Strips were used for final skin closure. A Silverlon dressing was placed. Patient was awakened by anesthesia and transferred to the [facility]. Patient was then transferred to the PACU for recovery. Postoperative plan: Patient will get 24 hours postop antibiotics. Patient will get in-house physical therapy and will be weight-bear as tolerated. Patient will follow up in office in 2 weeks for a wound check and x-rays. Aspirin for DVT prophylaxis During the course of the procedure the nurse practitioner played a vital role. Her intimate knowledge of my steps in the procedure aided in safe and expedient completion of the procedure. The IN STORE DEMONSTRATOR played a vital rolls in positioning particularly in obtaining the appropriate positioning of the sacral bump. The IN STORE DEMONSTRATOR was also vital in the retraction of soft tissues during the exposure and especially the femoral work as this is a vital part of the procedure to prevent complications and fractures. The IN STORE DEMONSTRATOR was also vital and protecting soft tissues during times of bony cuts and reaming. He also played a vital role in closure with my direct supervision. The IN STORE DEMONSTRATOR was also important during reduction and dislocation of the joint and trials intraoperatively. Grafts/Implants Used: [place] - Complications No intraoperative complications - Admit VTE Documentation VTE Present on Admission: No VTE Mechan Device Prophylaxis: SCD's, Thigh High NICOLE Hose VTE Pharm Prophylaxis ordered?: Yes Essential Procedure Criteria Procedure Essential: Yes Criteria Note: On 08/24/2019 the [place] Department of Health ([facility]) Public Order signed by [facility] Director Luna Balderrama M.D., regarding the Management of Non- Essential Surgeries and Procedures for the purpose of preserving Personal Protective Equipment (PPE) and critical hospital capacity and resources within [place] went into effect as of 08/25/2019 at 5:00PM. According to the [facility] Public Order: This action will remain in full force and effect until the State of Emergency declared by the Governor no longer exists or the Director of the [facility] rescinds or modifies this Order.. This [facility] order stated all non-essential or elective surgeries and procedures that utilize PPE should be delayed unless there is undue risk to the current or future health of a patient. After reviewing the aforementioned [facility] Public Order and the patients clinical case, I have determined that the scheduled procedure meets the criteria to go forward. Risk to Patient if Procedure Delayed: Presence of severe symptoms causing an inability to perform ADL's
--- NOTE | 2019-10-08 07:30 | RAD_ITS ---
STUDY: X-RAY - PELVIS AND RIGHT HIP REASON FOR EXAM: Male, 68 years old. Right anterior total hip TECHNIQUE: 1 views of the pelvis and hip. COMPARISON: None. FINDINGS: Intraoperative imaging provided for right hip replacement. There is good alignment. RAD/Hip 1 view with Pelvis IMPRESSION: Intraoperative imaging provided for right total hip replacement. There is good alignment. Electronically Signed: Von Shaffer, at 10:20 EDT , Service support ,
[2019-10-08] MEDS: dexAMETHasone 10 MG/ML Vial IV (08:04)
[2019-10-08] MEDS: Lactated Ringers 1,000 ML 100 ML IV (08:15)
[2019-10-08] MEDS: Joint Pain Solution (NO KETOROLAC) 100 ML IV (09:48)
[2019-10-08] MEDS: Scopolamine 1mg/72hr Patch 1 PATCH TD (11:00)
[2019-10-08] MEDS: Ondansetron 4 MG/2 ML Vial IV (11:29)
[2019-10-08] MEDS: Lactated Ringers 1,000 ML 125 ML IV (12:16)
[2019-10-08] MEDS: proMETHazine 25 MG/ML Syringe 12.5 MG IM (12:21)
[2019-10-08] MEDS: oxyCODONE 5 MG Tablet PO (13:13)
[2019-10-08] MEDS: Cefazolin 1 GM/50 ML BAG IV (13:49)
== END 2019-10-08 14:48 | disposition home or self-care (01) ==
LOC: SDC 05:35 → AC 05:35
PROVIDERS: Registered Nurse; PCP Family Medicine; Referring Provider Specialist; Visit Provider Specialist
PROC: (CPT 27284; principal; 2019-10-08 07:05)
DX: M16.11 Unilateral primary osteoarthritis, right hip (principal); I12.9 Hypertensive chronic kidney disease with stage 1 through stage 4 chronic kidney disease, or unspecified chronic kidney disease; N18.3 Chronic kidney disease, stage 3 (moderate); E78.00 Pure hypercholesterolemia, unspecified; G47.30 Sleep apnea, unspecified; K21.9 Gastro-esophageal reflux disease without esophagitis; E07.9 Disorder of thyroid, unspecified; Z79.899 Other long term (current) drug therapy; Z88.0 Allergy status to penicillin; Z88.8 Allergy status to other drugs, medicaments and biological substances; Z96.641 Presence of right artificial hip joint
CPT/HCPCS: 27130; 36415; 73501; 73502; 76000; 80048; 82962; 85025; 87081; 97162; 97166; C1776; J7120; J2405

== ENCOUNTER 2019-11-10 12:00 | Outpatient (RCR) | payer MEDICARE, OTHER, SELFPAY ==
[2019-03-19 07:44] VITALS: BMI 42.8
[2019-10-08 05:55] VITALS: BMI 43.8
--- NOTE | 2019-10-11 11:58 | HP.PTEVAL_ITS ---
Patient's Visit Information DAYSI GASTELUM is a 68 year old M referred to Physical Therapy by Sabas Harrington MD with a diagnosis of R PREETI (anterior approach). Date of Evaluation: 10/11/19 Physical Therapist: Stanislav Borrero PT, ATC - Visit Plan Frequency: 2-3x /Week Duration: 4-6 Weeks Plan: R LE strengthening, balance and proprio, core stab ex's, gait training, nustep, and HEP - Subjective DOS: 10/08/2019. Pt reports he had an anterior approach hip replacement on his R LE. Pt reports he is eating light, but had his first bowel movement today. Pt reports this is his first orthopedic surgery. Pt reports he was in severe pain prior to having the surgery. Pt reports he has a lot of incision pain, but the pain from prior to surgery is gone. Pt reports he has difficulty with bed transfers and car transfers. sleep difficulty without pain meds. Pt still wearing waterproof bandage which he has to until tomorrow. Pt reports he feels numb in R thigh to the knee at this time. 1/10 at rest, 8/10 at worst - Pain R PREETI Pain Intensity (Out of 10): 1 Pain Intensity Range: 8 - Objective Neuro: R L3-4 dermatones hyposensitive to light touch. B LE patellar reflex= 2/3. Gait: Pt ambulates with WW and very slow cadance. Able to ambulate approx 120' until needing a break. MMT: R LE 3+/5 throughout. L LE 5/5 throughout. ROM: WFL for postsurgical L PREETI. Observation: Incision is draining mildly. No signs of infection at this time - Goals Goal 1:: Decrease R hip pain x 50% to aid with sleep Goal Time Frame: 4-6 Weeks Goal 2:: Increase R hip strength x 1 grade to aid with all transfers Goal Time Frame: 4-6 Weeks Goal 3:: Pt will be able to ambulate 300' with LRD to aid with community ambulation Goal Time Frame: 4-6 Weeks Goal 4:: I with HEP Goal Time Frame: 4-6 Weeks - Rehabilitation Potential Physical Therapy Diagnosis: Pt has R hip pain, weakness, and difficulty with am bulation secondary to R PREETI Rehabilitation Potential: Good - Anticipated Interventions Patient/Client Instruction: Educate patient on: Condition, Plan of Care For the Purpose of:: To improve self management Therapeutic Exercise to Include: Strength training, Endurance training, Balance training, Gait and locomotor training, Dynamic Lumbar Stabilization For the Purpose of:: To decrease pain, To improve muscle performance and motor function, To improve gait and locomotor functions Cryotherapy (ice pack, ice massage): Yes Vasopneumatic device: Yes For the Purpose of:: To decrease pain Thank you for the opportunity to evaluate your patient. For Medicare and Medicare HMO plans, please review the plan of care and approve it. It will need to be FAXED BACK to us at [phone] for Medicare purposes. For Medicare only, by signing this I certify the plan of care. Please let me know if there are questions or concerns regarding this plan of care. Physician Signature: Date:
--- NOTE | 2019-11-10 12:53 | HP.PTDCSUM ---
It has been my pleasure to treat TOKina GASTELUM referred by Dr. Sabas Harrington MD, with the diagnosis of R PREETI (anterior approach) for a total of 12 visit(s). Discharge Date: Please see the following information for a summary of their discharge status. Subjective: I am ready to continue with ex's R PREETI Pain Intensity (Out of 10): 0 % Improvement: 85 Objective/Function: R hip MMT: 5/5 throughout. ROM is now WFL. 0/10 pain this date. Pt is able to ambulate 340' with intermittent use of cane with ease. I with HEP and gym routine. Rx goals achieved Goal 1:: Decrease R hip pain x 50% to aid with sleep Goal Progress: Goal Met Goal 2:: Increase R hip strength x 1 grade to aid with all transfers Goal Progress: Goal Met Goal 3:: Pt will be able to ambulate 300' with LRD to aid with community ambulation Goal Progress: Goal Met Goal 4:: I with HEP Goal Progress: Goal Met Plan: Discharge If there are questions or concerns regarding this patient's physical therapy, please feel free to call me at [phone]. Thank you for the referral of this patient. Sincerely, Stanislav Borrero, PT, ATC
== END 2019-11-10 19:00 | disposition home or self-care (01) ==
LOC: PT 12:00
PROVIDERS: PCP Family Medicine; Visit Provider Specialist
DX: M16.11 Unilateral primary osteoarthritis, right hip (principal)
CPT/HCPCS: 97016; 97110; 97161; 97164

== ENCOUNTER 2019-11-16 11:01 | Emergency (ER) | payer MEDICARE, OTHER, SELFPAY ==
[2019-10-08 05:55] VITALS: BMI 43.8
[2019-11-16 11:02] VITALS: BP 122/69; PULSE 58; RESP 17; TEMP 36.1; O2SAT 97; BMI 43.0
--- NOTE | 2019-11-16 11:28 | CT_ITS ---
STUDY: CT ABDOMEN AND PELVIS WITH CONTRAST REASON FOR EXAM: Male, 68 years old. PT STATED LOWER ABDOM PAIN, HX DIVERTICULITIS RADIATION DOSAGE (If Supplied By Facility): CTDIvol = ( 21.85 ) mGy, DLP = ( 1996.27 ) mGycm TECHNIQUE: Transaxial images were obtained from the dome of the diaphragm to the symphysis pubis without oral contrast. IV 100mL Isovue-300 was administered. Sagittal and coronal images were reconstructed. Individualized dose optimization techniques were used for this CT. COMPARISON: Comparison is made with prior study dated November 19, 2015. FINDINGS: Minimally increased linear markings at the lung bases suggestive of either linear atelectasis and/or mild scarring. The visualized portions of the heart are within normal limits. Subcentimeters cyst is seen in the anterior aspect of the right lobe of the liver. Normal gallbladder and extrahepatic biliary system. Normal spleen. Normal pancreas. Normal bilateral adrenal glands. There is a 2.5 cm cyst in the mid lateral portion of the right kidney. 1 cm cyst in the lower pole of the right kidney. There is a 10.8 cm x 8.8 cm cyst in the upper lateral aspect of the left kidney. There is a small hiatal hernia. Normal small intestine. There is diverticulosis, with thickening of the colon wall, and pericolonic inflammation changes consistent with acute diverticulitis. Increased density is seen within the appendix. This may represent either an appendicolith or contrast within the appendix from prior examination. There is diffuse atherosclerotic calcification of the abdominal aorta, without a demonstrated aneurysm. Normal inferior vena cava. Normal retroperitoneum. Normal urinary bladder. There is a small umbilical hernia containing fat. There are mild degenerative changes of the visualized lumbar spine. Status post right total hip replacement. CT/Abdomen/Pelvis W IV Cont ONLY IMPRESSION: Findings in keeping with a noncomplicated acute sigmoid diverticulitis. Bilateral renal cysts more prominent on the left side. Electronically Signed: Von Shaffer, at 12:32 EDT , Service support ,
--- NOTE | 2019-11-16 11:30 | ED.DCSUM_ITS ---
History of Present Illness Chief Complaint: Abd Pain Informant: Patient - Abdominal Pain/Flank Pain Onset: Yesterday Context: Gradual Onset Timing: Continuous, Waxes and wanes Quality: Aching, Cramping Location: - - lower abdomen Current Severity: Mild Maximum Severity: Moderate Worsened by: Nothing Relieved by: Nothing - Nausea/Vomiting/Emesis GI Symptom: Negative for: Nausea, Vomiting - Diarrhea/Melena/Hematochezia GI Symptom: Negative for: Diarrhea, Melena, Hematochezia Associated Symptoms: Negative for: Dysuria, Frequency, Hematuria, Urgency Narrative: Patient states lower abdominal pain that started last night, he has had this discomfort in the past and been diagnosed with diverticulitis, and has been treated for possible diverticulitis a total of 6 times with the majority of times, he has called in and requested antibiotics that were prescribed and usually helped resolve the discomfort. He states he had a good bowel movement yesterday morning. He has had several episodes since the pain started where he felt like he needed to have a bowel movement but was unable. He states he does not have a history of constipation. He denies any nausea, vomiting, fevers, back pain, urinary symptoms. Has never had any abdominal surgeries. Has not yet had a colonoscopy since he was diagnosed with diverticulitis. - Past Medical History (1) Hypertension Status: Chronic (2) Hyperlipidemia Status: Chronic (3) GERD (gastroesophageal reflux disease) Status: Chronic (4) Diverticulitis Status: Suspected Past Medical History - Allergies and Home Meds Allergies/Adverse Reactions: Allergies Penicillins [PCN] Allergy (Verified 11/16/19 11:01) Hives lisinopril Adverse Reaction (Verified 11/16/19 11:01) cough NSAIDS (Non-Steroidal Anti-Inflamma Adverse Reaction (Verified 11/16/19 11:01) liver function Thiazides Adverse Reaction (Verified 11/16/19 11:01) leg swelling Primary Care Physician: Prasanth Catherine MD [Primary Care Provider] - Smoking Status: Never smoker Review of Systems General: Denies: Chills, Fever, Sweats Eyes: Denies: Visual changes - bilaterally, Diplopia ENT: Denies: Rhinorrhea, Sore throat Cardiovascular: Denies: Chest pain, Palpitations Respiratory: Denies: Dyspnea, Cough, Dyspnea on exertion Gastrointestinal: Reports: Abdominal pain, Constipation. Denies: Nausea, Vomiting, Diarrhea, Melena, Hematochezia Genitourinary: Denies: Dysuria, Hematuria, Frequency Musculoskeletal: Denies: Back pain, Extremity Pain Skin: Denies: Rash, Wounds Neurological: Denies: Headache, Weakness, Numbness Physical Exam Vital Signs/Narrative: Vital Signs Temp Pulse Resp BP Pulse Ox 11/16/19 11:02 97.0 F L 58 L 17 122/69 H 97 Inital Vital Signs reviewed: Yes General: Well nourished, Well developed, Obese, No Acute Distress Head: Normocephalic, Atraumatic Eyes: Perrl, EOMI ENT: Moist mucous membranes, No rhinorrhea Neck: Supple, Nontender Cardiovascular: Regular rate, Regular rhythm, No murmurs Respiratory: No distress, CTA bilaterally, Chest nontender Abdomen: Soft, Nondistended, Normal bowel sounds, Tender - Mild, Left lower quadrant. Otherwise nontender. Negative for: Guarding, Rebound tenderness, Pulsatile mass Back: Nontender, Normal Inspection. Negative for: CVA tenderness Extremities: Nontender, No edema Skin: Normal color, No rash, No Trauma Neurological: Alert, Oriented x3, Cranial nerves II-XII grossly intact, Normal Strength, Normal Sensation, Normal Gait Psychological: Normal affect, Normal Mood Diagnostic/Tx/Re-eval Impressions Abdomen/Pelvis CT 11/16/19 11:28 IMPRESSION: Findings in keeping with a noncomplicated acute sigmoid diverticulitis. Bilateral renal cysts more prominent on the left side. Electronically Signed: Von Deena, at 12:32 EDT , Service support , 11/16/19 11:28 Abdomen/Pelvis W IV Cont ONLY [CT] Stat Laboratory Results 11/16/19 11/16/19 11:25 11:25 WBC 8.5 RBC 4.26 L Hgb 13.1 Hct 39.6 L MCV 93.0 MCH 30.8 MCHC 33.1 RDW Std Deviation 45.5 H RDW Coeff of Breann 13.3 Plt Count 192 MPV 8.6 Immature Gran % (Auto) 0.400 Neut % (Auto) 67.0 Lymph % (Auto) 18.0 L Caswell % (Auto) 11.5 H Eos % (Auto) 2.4 Baso % (Auto) 0.7 Absolute Neuts (auto) 5.7 Absolute Lymphs (auto) 1.53 Nucleated RBC % 0 Sodium 140 Potassium 4.5 Chloride 108 H Carbon Dioxide 24.0 Anion Gap 8 BUN 18 Creatinine 1.21 Estim Creat Clear Calc 59.49 Est GFR (MDRD) Af Amer 76 Est GFR (MDRD) Non-Af 63 BUN/Creatinine Ratio 14.9 Glucose 101 Calcium 9.4 - Medical Decision Making No leukocytosis, but CT is consistent with sigmoid diverticulitis. He was treated with Cipro and Flagyl, he did not require any analgesics here in the ER, and I think he is fine to be treated as an outpatient. He is comfortable with that plan, will follow-up with his doctor. We discussed reasons to return. ED Disposition - Plan for ED Patient: Disposition: Home or Assisted Living Diagnosis: Sigmoid diverticulitis Instructions: ED Diverticulitis Prescriptions: Ciprofloxacin [Cipro] 500 mg PO BID #20 tab Transmission Status: Pending to [facility] [address] [place] [Flagyl] 500 mg PO BID #20 tab Transmission Status: Pending to [facility]IZ[facility] [facility] Referrals: Prasanth Catherine MD [Primary Care Provider] - 1 Week (Or with Dr. Romo/SILVINA as scheduled)
[2019-11-16 11:38] LABS: Absolute Lymphocyte Count 1.53 X10^3/uL (0.83-4.51); Absolute Neutrophil Count 5.7 X10^3/uL (2.0-7.7); Basophil# 0.06 X10^3/uL; Basophil% 0.7 % (0-1); Eosinophils% 2.4 % (0-5); Hematocrit 39.6 % (40-54); Hemoglobin 13.1 g/dL (13.0-16.5); Lymphocyte # 1.53 X10^3/ul (4.0); Mean Corp Hgb Conc 33.1 g/dL (32-36); Mean Corpuscular Hgb 30.8 pg (27.0-32.0); Mean Platelet Vol. 8.6 fl (6.2-12.0); Monocyte# 0.98 X10^3/uL; Monocyte% 11.5 % (0-10); NRBC Flagged by Analyzer 0 % (0-5); Neutrophil # 5.69 X10^3/uL (2.7-7.7); Platelet Count 192 K/mm3 (150-450); RBC Distribution Width CV 13.3 % (11.6-14.6); RBC Distribution Width SD 45.5 fl (35.1-43.9); Red Blood Count 4.26 M/mm3 (4.6-6.2); White Blood Count 8.5 K/mm3 (4.4-11.0)
[2019-11-16 11:48] LABS: Anion Gap 8 (5-15); BUN 18 mg/dL (7-18); BUN/Creat Ratio 14.9 RATIO (10-20); Calcium,Total 9.4 mg/dL (8.5-10.1); Chloride 108 mmol/L (98-107); Creatinine, Serum 1.21 mg/dL (0.70-1.30); EST Glomerular Filtration Rate 63 mL/min (>60); Est Glom Filt Rate - Afr Amer 76 mL/min (>60); Estimated Creatinine Clearance 59.49 ml/min; Glucose 101 mg/dL (74-106); Potassium 4.5 mmol/L (3.5-5.1); Sodium Level 140 mmol/L (136-145)
[2019-11-16 12:43] LABS: Bacteria 0 SEEN /hpf (None Seen); Mucous, Urine 0 SEEN /hpf (<or=2+); Red Blood Cells-Urine 0 SEEN /hpf (0-5); White Blood Cells 0 SEEN /hpf (0-5)
[2019-11-16 12:50] LABS: Color, Urine Yellow (Yellow); Glucose, Dipstick Normal (Normal); Ketone-Dipstick Negative (Negative); Leukocyte Esterase-Dipstick Negative /ul (Negative); Nitrite-Dipstick Negative (Negative); Occult Blood-Urine Negative /ul (Negative); Protein-Dipstick Negative (Negative); Urine Bilirubin Dipstick Negative (Negative); Urine Clarity Sl. Cloudy (Clear); Urine Urobilinogen Normal (Normal); Urine pH 6.5 (5.0 - 8.0)
[2019-11-16 13:00] LABS: Squamous Epithelial Cells - UA 0-5 SEEN /hpf (0-5)
[2019-11-16] MEDS: metroNIDAZOLE 500 MG Tablet PO (13:05)
[2019-11-16] MEDS: Ciprofloxacin 500 MG Tablet PO (13:05)
== END 2019-11-16 13:14 | disposition home or self-care (01) ==
LOC: ED 13:06
PROVIDERS: Emergency Provider Emergency Medicine; PCP Family Medicine
DX: K57.32 Diverticulitis of large intestine without perforation or abscess without bleeding (principal); E78.5 Hyperlipidemia, unspecified; I10 Essential (primary) hypertension; K21.9 Gastro-esophageal reflux disease without esophagitis; N28.1 Cyst of kidney, acquired; Z88.0 Allergy status to penicillin; Z88.6 Allergy status to analgesic agent
CPT/HCPCS: 74177; 80048; 81001; 85025; 99284; J7040; Q9967; A4216

== ENCOUNTER → 2019-12-15 08:05 | Outpatient (CLI) | payer MEDICARE, OTHER, SELFPAY ==
[2019-11-16 11:02] VITALS: BMI 43.0
--- NOTE | 2019-12-15 08:25 | CT_ITS ---
STUDY: CT LOWER EXTREMITY LEFT REASON FOR EXAM: Male, 68 years old. LEFT HIP YAKELIN RADIATION DOSAGE (If Supplied By Facility): CTDIvol = ( 13.34 ) mGy, DLP = ( 1052.61 ) mGycm. Individualized dose optimization techniques were used for this CT.? TECHNIQUE: Multiple axial tomographic images of the hips and knees were obtained. Coronal and sagittal reconstruction was obtained as well. COMPARISON: Comparison is made with prior examination dated July 30, 2019. FINDINGS: The patient is status post right total hip replacement. There is good alignment. Marked degree of joint space narrowing in the osteoarthritis of the superolateral portion of the left hip joint with a subchondral geodes within the left acetabulum and left femoral head. Mild joint space narrowing of the medial compartment of the left knee joint. The right knee joint is unremarkable. CT/Extremity Lower without Contra IMPRESSION: Marked degree of osteoarthritis with subchondral geodes involving the left hip joint as described. The patient is status post right total hip replacement. There is good alignment. Electronically Signed: Von Shaffer, at 10:22 EDT , Service support ,
== END ==
PROVIDERS: PCP Family Medicine; Referring Provider Specialist; Visit Provider Specialist
DX: M16.12 Unilateral primary osteoarthritis, left hip (principal)
CPT/HCPCS: 73700

== ENCOUNTER 2019-12-29 07:01 | Day surgery (SDC) | payer MEDICARE, OTHER, SELFPAY ==
--- NOTE | 2019-12-14 15:57 | HP.PCM_ITS ---
History and Physical History and Physical [facility] Patient Name: Esvin Valdes : 1950 From: JOSE ARANGO PA-C DATE OF SURGERY: 12/29/2019 SCHEDULED PROCEDURE: left total hip arthroplasty HISTORY OF PRESENT ILLNESS: Preoperative history and physical exam was performed on December 13, 2019. This is a 68-year-old male who has had ongoing pain in bilateral hips for over 3 years. Patient recently underwent a right direct anterior total hip arthroplasty on October 08, 2019. Patient is doing very well from this procedure. He continues to have left hip pain which has been intermittent, aching, sore. He does feel the pain is increased in the left hip after the right hip surgery. Patient continues to use a cane secondary to the left hip pain. He feels the pain has been progressively giving getting worse. He has been through physical therapy with continued pain. Pain is increased and has a difficult time with bathing/showering, getting dressed, housework, shopping, and walking. He has stumbled secondary to left hip pain. Patient feels unstable on the left hip if he is not using the cane. Patient has been using Tylenol primarily for pain control. Patient denies previous surgery on the left hip. After failing conservative measures and discussing treatment options with Dr. Sabas Harrington, the patient does wish to proceed with a left direct anterior total hip arthroplasty. Patient currently denies chest pain, shortness of breath, fevers chills, recent infections. Patient has a medical history pertinent for stage III kidney disease/renal failure, hypertension, sleep apnea with use of CPAP, history of diverticulitis, thyroid disease. REVIEW OF SYSTEMS: ROS: Const: Denies change in appetite, fever and weight change. CV: Denies chest pain, heart murmur and irregular heartbeat. Resp: Denies cough, pneumonia, shortness of breath, tuberculosis and wheezing. GI: Reports heartburn, but denies constipation, diarrhea, nausea, rectal itching, bloody stools and vomiting. : Denies incontinence. Musculo: Reports gait disturbance, leg swelling, trouble walking and weakness, but denies pain. Skin: Denies Raynaud's, history of shingles and tattoo. Neuro: Denies ambulatory dysfunction, dizziness, numbness/tingling and tremor. Psych: Denies anxiety, insomnia and stress. Adan/Lymph: Denies anemia, bleeding/bruising tendency and past transfusion. Reviewed, no changes. PAST MEDICAL HISTORY: Advance Care Plan: No Advance Directives Effective Date: 07/22/2019 PMH: Medical Problems: Arthritis, High Blood Pressure, Hypercholesterolemia, Kidney Disease/Renal Failure, Sleep Apnea, Thyroid Disease, Diverticulitis Accidents: Fracture - (1962) LT arm, [facility]: [facility]2105[facility] SAW @ [facility] Anesthesia Complications: None Assistive Devices: Glasses, Cane Reviewed, no changes. SOCIAL HISTORY: SH: Marital: .Occupation: Retired.Work Status: Retired.Hand Dominance: Left- handed. Personal Habits: Cigarette Use: Never Smoked Cigarettes.Smokeless Tobacco: Never Used Smokeless Tobacco.E-Cigarette Use: Never used.Alcohol: Occasionally.Drug Use: Denies Use.Enjoy Exercising: Exercises 1-3 x/month. Reviewed, no changes. VITALS: Ht: 70 Wt: 308lb Wt k.709 BMI: 44.2 BP: 170/88 Pulse: 74 Resp: 18 T: 97.6 T: 36.4C ALLERGIES: Penicillin Lisinopril - cough Thiazide-Type Diuretics - leg swelling MEDICATIONS: Oxycodone HCL 5 mg 1-2 tab by mouth every 4 hours, Promethazine HCL 12.5 mg 1-2 tablets by mouth every 6 hours, Tylenol Extra Strength 500 mg 2 by mouth every 8 hours, 2-3 times daiy, Levothyroxine Sodium 112mcq daily, Labetalol HCL 200 mg twice daily, Valsartan 160 mg once daily, Atorvastatin Calcium 10 mg 1 by mouth every day, Sildenafil Citrate 0.5 mg as needed, Prilosec OTC 20 mg once daily PRE-OP EXAM: General appearance:NORMAL Other: Eyes: Conjunctivae and lids: NORMAL Pupils: ERR Ears, Nose, Mouth, and Throat: NORMAL Other: Inspection of lips, teeth and gums: NORMAL Other: Neck: Examination of neck: no masses noted. Respiratory: Assessment of respiratory effort: NORMAL Other: Auscultation of lungs: clear to auscultation no wheezes, rhonchi or rales. Cardiovascular: Auscultation of heart: regular rate and rhythm, no murmurs, gallops or rubs. Exam of carotid arteries: NORMAL Other: Gastrointestinal: Exam of abdomen: soft, nontender, nondistended bowel sounds present. PHYSICAL EXAMINATION: Patient walks with an antalgic gait. Left hip is cool to touch study erythema or signs of infection. Patient has increased pain with range of motion of the left hip with pain in his groin. Patient's left hip is approximately 2 mm shoulder than the right. Flexion 60, internal rotation 3, external rotation 20. Previous right hip incision is well healed with no evidence of erythema or signs of infection. No pain with range of motion. IMAGING STUDIES: Left hip x-rays reveal joint space narrowing, subchondral sclerosis, osteophyte formation consistent with stage IV severe osteoarthritis. There is been further collapse of the femoral head and acetabular cyst when compared to previous x- rays in July 2019. IMPRESSION: 1. Severe left hip osteoarthritis 2. Presence of right total hip arthroplasty October 08, 2019 3. Hypertension 4. Stage III kidney disease/renal failure 5. Sleep apnea with use of CPAP 6. Thyroid disease 7. History of diverticulitis PLAN: Dr. Sabas Harrington did discuss and review with the patient all treatment options including surgical versus nonsurgical options. Patient does wish to proceed with the above-stated procedure. Potential risks, benefits, and complications of the procedure were discussed in detail including but not limited to , infection, nerve and blood vessel damage, persistent pain, numbness, tingling, paresthesias, blood clot, pulmonary embolism, and requirement for possible further surgery. The patient expressed full understanding and has no further questions for the doctor. Patient does agree to proceed with the above-stated procedure and has signed the surgery consent form. We discussed the current risks associated with COVID 19. This does include the risk of exposure while in the hospital. Patient was reassured local hospitals have low infection rates and are taking all necessary precautions to avoid exposure to patients. In addition, we discussed strategies that can be used to help limit exposure including those that limit the patient's time in the hospital. Also using strategies to limit the patient's need for continued inpatient services after being discharged from the hospital. Patient was notified that we will need to comply with any screening or testing the hospital wishes to perform or that surgery may be delayed for any positive results. This dictation was created using voice recognition software. Phonetic and/or grammatical errors may exist. ___ I have re-examined the patient. There are no clinical changes since date of exam. ___ See progress notes for changes. ___ Dictated on admission Date: Time: Signature:
[2019-12-15 09:11] LABS: Absolute Lymphocyte Count 1.35 X10^3/uL (0.83-4.51); Absolute Neutrophil Count 4.2 X10^3/uL (2.0-7.7); Basophil# 0.05 X10^3/uL; Basophil% 0.8 % (0-1); Eosinophil# 0.15 X10^3/uL; Eosinophils% 2.3 % (0-5); Hematocrit 40.7 % (40-54); Hemoglobin 13.4 g/dL (13.0-16.5); Lymphocyte # 1.35 X10^3/ul (4.0); Lymphocyte % 20.3 % (19-41); Mean Corp Hgb Conc 32.9 g/dL (32-36); Mean Corpuscular Hgb 30.4 pg (27.0-32.0); Mean Corpuscular Volume 92.3 fL (80-94); Monocyte# 0.89 X10^3/uL; Monocyte% 13.4 % (0-10); NRBC Flagged by Analyzer 0 % (0-5); Neutrophil # 4.19 X10^3/uL (2.7-7.7); Neutrophil % 62.7 % (47-70); Platelet Count 189 K/mm3 (150-450); RBC Distribution Width SD 43.8 fl (35.1-43.9); Red Blood Count 4.41 M/mm3 (4.6-6.2); White Blood Count 6.7 K/mm3 (4.4-11.0)
[2019-12-15 09:43] LABS: Anion Gap 6 (5-15); BUN 21 mg/dL (7-18); BUN/Creat Ratio 16.4 RATIO (10-20); Chloride 109 mmol/L (98-107); Creatinine, Serum 1.28 mg/dL (0.70-1.30); EST Glomerular Filtration Rate 59 mL/min (>60); Est Glom Filt Rate - Afr Amer 72 mL/min (>60); Glucose 98 mg/dL (74-106); Potassium 4.2 mmol/L (3.5-5.1); Sodium Level 140 mmol/L (136-145)
[2019-12-15 09:44] LABS: Thyroid Stim Hormone (TSH) 2.66 uIU/mL (0.358-3.74)
[2019-12-29] VITALS (7 sets, daily range): BP systolic 99–127; BP diastolic 60–89; PULSE 46–62; RESP 16–18; TEMP 35.9–36.4; O2SAT 95–100; BMI 43.6
[2019-12-29] MEDS: Lactated Ringers 1,000 ML 75 ML IV (07:00)
[2019-12-29] MEDS: Lactated Ringers 1,000 ML 999 ML IV ×2 (07:31→11:38)
[2019-12-29] MEDS: Gabapentin 600 MG Tablet PO (07:32)
[2019-12-29] MEDS: Acetaminophen 500 MG Tablet 1000 MG PO ×2 (07:32→14:32)
[2019-12-29] MEDS: Cefazolin 2 GM in 0.9% Normal Saline 100 ML IV (08:50)
[2019-12-29] MEDS: dexAMETHasone 10 MG/ML Vial IV (09:10)
[2019-12-29] MEDS: Joint Pain Solution (NO KETOROLAC) 100 ML IV (09:42)
--- NOTE | 2019-12-29 10:15 | RAD_ITS ---
STUDY: X-RAY - PELVIS AND LEFT HIP REASON FOR EXAM: Male, 69 years old. LEFT INTRA-OPERATIVE ANTERIOR TOTAL HIP TECHNIQUE: 4 intraoperative views of the pelvis and hip. COMPARISON: None. FINDINGS: 4 limited intraoperative views were performed as the patient has undergone replacement of the left hip joint. Limited C-arm films show anatomic alignment of the components with no demonstrated complications. RAD/Hip 1 view with Pelvis IMPRESSION: Left hip replacement Electronically Signed: Clarence Butt MD at 11:17 EDT , Service support ,
[2019-12-29 10:20] LABS: Bedside Glucose 99 mg/dL (70-110)
--- NOTE | 2019-12-29 10:49 | OP.PCM_ITS ---
Report of Operation Date of Procedure: 12/29/19 Pre-Operative Diagnosis: Left hip primary osteoarthritis Post-Operative Diagnosis: Left hip primary osteoarthritis Surgery/Procedure Performed:: Minimally invasive robotic assisted direct anterior total hip replacement Description of Surgical Findings:: Stable hip with equal leg lengths liner machine operator: Josee Ho Type of Anesthesia:: Spinal Anesthesiologist: Lorne Tristan Special Medications: 2 g Ancef, 1 g TXA at incision, 1 g TXA closure, 10 mg Decadron, joint cocktail (5 mg Duramorph, 30 mL of 0.5% Ropivicaine, 1000 units of epinephrine) Specimen's removed: Bony cuts Estimated Blood Loss (mL): 200 mL Fluids Replaced: 1500 mL crystalloid Description of Procedure: Components used: 1. Accolade 2 [place] femoral stem size 6 127? 2. [place] trident 2 acetabular shell size 56 mm 3. Debi X3 polyethylene F3 4. Debi Biolox delta6] mm, +2.5 mm femoral head Brief history operative indications: 69 yo M who failed conservative measures for their hip osteoarthritis. X-rays were consistent with osteoarthritis including joint space narrowing, osteophyte formation and subchondral cysts. Total hip replacement was discussed with the patient with risks and benefits including but not limited to blood loss, DVTs, PEs, neurovascular damage, dislocation, general risks of anesthesia including loss of life. Patient demonstrated an understanding medical clearance is obtained the patient was consented for surgery. Procedure: On the date of procedure the patient's L hip was marked in the preoperative area. Patient was then taken back to the operating room where anesthesia assu med control of the C-spine and airway and administered anesthetic. Patient was transferred to the operating table and placed in the supine position. The hips were placed at the break of the bed and a sacral bump was placed. A checkpoint was placed on the tibial tubercle. The L lower extremity was then prepped out in a sterile fashion using chlorhexidine while the surgeon scrubbed. The PA was vital in the positioning of the patient. Upon reentering the room the L lower extremity was draped in the standard orthopedic fashion and the incision was marked. A timeout was called and everyone agreed upon the side, the site, the procedure be performed, antibody given, and patient's identity. 3 pins were placed in the right iliac crest with a small skin incision and blunt dissection down to the bone. After the skins were placed in a ray was placed for targeting. At this time left hip operative incision was made through skin, subcutaneous tissue, and fat down to fascia. The fascia was then incised and the TFL was retracted laterally. A retractor was placed on the lateral border of the femoral neck. Attention was directed to the inferior portion of the approach and all crossing vessels were identified and appropriately coagulated. A retractor was then placed on the medial portion of the femoral neck. The anterior capsule was then cleared of all soft tissue and then H shaped capsulotomy was made. The retractors were then placed inside the capsule. The checkpoint was placed. The checkpoints were registered. The femoral neck was identified and a cleanup cut was made. At this time a power corkscrew was used to remove the femoral head. Attention was then turned toward the acetabulum where the soft tissues were appropriately retracted and debrided. The acetabulum was registered. The robot was brought into the field sterilely and the acetabulum was reamed to 56 mm. A 56 mm cup was then selected and impacted into place. Acetabular liner was impacted into place and locking mechanism was verified. The position of the acetabular cup was then verified under live fluoroscopy. Attention was then turned to the femur. Soft tissue releases on the medial and lateral femoral neck were appropriately done, the leg was externally rotated and lateralized. A Mckinney retractor was placed medially and proximally to the greater trochanter this allowed appropriate visualization and exposure of the femoral canal. Rongeour was then used to remove excess lateral bone. A canal finder and entry broach were used to open the proximal canal. Once we verified we were down the femoral canal we subsequently broached up to a size 6 femur. The appropriate neck was placed in the previously selected head was trialed with a +2.5 mm neck. Traction was pulled and the hip was reduced with internal rotation. Once it was appropriately reduced and stability was checked. There was minimal shuck, equal leg lengths and appropriate stability with hyperextension and external rotation as well as with 90? flexion and internal rotation. Fluoroscopy was then also used to verify the position of the components and leg lengths using the contralateral side for comparison. The trial components were then dislocated the proximal femur was again exposed and the components were removed from the wound. The final components were verified and opened. The wound was copiously irrigated out with normal saline. The acetabulum was checked for any residual debris. The final components were placed and impacted. Traction and internal rotation were again used to reduce the hip. After adequate reduction the hip remained stable with appropriate leg lengths. The final components were once again checked with live fluoroscopy and were found to be satisfactory. The wound was then copiously irrigated with normal saline once more, and hemostasis was obtained. Closure was then done using #1 Vicryl runner to close the fascia. A 2-0 vicryl interuppted sutures were used to close the subcutaneous skin. A 3-0 Monocryl and Steri-Strips were used for final skin closure. the pins were removed and pin sites closed. A sterile dressing was placed. Patient was awakened by anesthesia and transferred to the [facility]. Patient was then transferred to the PACU for recovery. Postoperative plan: Patient will get 24 hours postop antibiotics. Patient will get in-house physical therapy and will be weight-bear as tolerated. Patient will follow up in office in 2 weeks for a wound check and x-rays. - Complications No intraoperative complications - Admit VTE Documentation VTE Present on Admission: No VTE Mechan Device Prophylaxis: SCD's, Thigh High NICOLE Hose VTE Pharm Prophylaxis ordered?: Yes
[2019-12-29] MEDS: Scopolamine 1mg/72hr Patch 1 PATCH TD (11:41)
--- NOTE | 2019-12-29 11:56 | RAD_ITS ---
STUDY: X-RAY - PELVIS AND LEFT HIP REASON FOR EXAM: Male, 69 years old. ROBOTIC LEFT TOTAL HIP. TECHNIQUE: 2 views of the pelvis and hip. COMPARISON: None. FINDINGS: Patient is postop from left hip replacement surgery. The components demonstrate anatomic alignment. No plain film evidence of postoperative complication. Normal postoperative soft tissue swelling and subcutaneous emphysema. RAD/Hip Min 2 Views (Portable) IMPRESSION: Replaced left hip joint demonstrates anatomic alignment, no plain film evidence of postoperative complication Electronically Signed: Clarence Butt MD at 12:38 EDT , Service support ,
[2019-12-29] MEDS: Lactated Ringers 1,000 ML 125 ML IV (12:32)
[2019-12-29] MEDS: Cefazolin 1 GM/50 ML BAG IV (14:33)
[2019-12-29] MEDS: oxyCODONE 5 MG Tablet PO (14:36)
== END 2019-12-29 15:46 | disposition home or self-care (01) ==
LOC: SDC 07:02 → AC 07:02
PROVIDERS: Anesthesiology; PCP Family Medicine; Referring Provider Specialist; Visit Provider Specialist
PROC: 8E0Y0CZ Robotic Assisted Procedure of Lower Extremity, Open Approach (ICD-10-PCS; CPT 27130; principal; 2019-12-29 08:30)
DX: M16.12 Unilateral primary osteoarthritis, left hip (principal); E07.9 Disorder of thyroid, unspecified; G47.30 Sleep apnea, unspecified; N18.3 Chronic kidney disease, stage 3 (moderate); I12.9 Hypertensive chronic kidney disease with stage 1 through stage 4 chronic kidney disease, or unspecified chronic kidney disease; Z96.643 Presence of artificial hip joint, bilateral; Z79.899 Other long term (current) drug therapy; Z88.0 Allergy status to penicillin; Z88.8 Allergy status to other drugs, medicaments and biological substances; E78.00 Pure hypercholesterolemia, unspecified
CPT/HCPCS: 01214; 27130; 36415; 73501; 73502; 76000; 80048; 82962; 84443; 85025; 87081; 87635; 97162; 97166; C1776; G2023; J7120; J2405; U0003

== ENCOUNTER 2020-02-04 10:00 | Outpatient (RCR) | payer MEDICARE, OTHER, SELFPAY ==
[2019-12-29 07:24] VITALS: BMI 43.6
--- NOTE | 2020-01-03 17:02 | HP.PTEVAL ---
Patient's Visit Information DAYSI GASTELUM is a 69 year old M referred to Physical Therapy by Dr. Sabas Harrington MD with a diagnosis of L PREETI (robot) 12/29/19. Date of Evaluation: 01/03/20 Physical Therapist: Stanislav Borrero, PT, ATC - Visit Plan Frequency: 2-3x /Week Duration: 4-6 Weeks Plan: L LE stretching and strengthening, balance and proprio, core stab ex's, nustep, and HEP - Subjective DOS: 12/29/19. Pt reports he had a ant approach L PREETI performed at that time. R PREETI 10/13/2019. Pt reports he is doing well at this time. Pt reports he has less pain and swelling with this hip surgery. Pt reports he is still taking pain meds to ;help to ease his pain. Pt reports he has been ascending and descending stairs at least once per day. Pt notes he has to negotiate them one step at a time. Pt reports not as much tingling or numbness in L LE as he did in his last surgery. Pt reports he has difficulty with donning and doffing shoes and socks. Pt has been performing HEP at this time. No sleep difficulty at this time. 2/10 pain at rest, 5/10 at worst (when he stops taking his pain meds) - Pain L hip Pain Intensity (Out of 10): 2 Pain Intensity Range: 5 - Objective Neuro: B LE sensation is WNL to light touch. B patellar reflex= 2/3. ROM: B LE's are WFL at this time. MMT: L hip strength is 3+/5. R hip 5/5. Gait: Pt is able to ambulate 680 feet until having to take a break secondary to pain. Stairs: ! flight of stairs, 1 step at a time - Goals Goal 1:: Decrease L hip pain x 50% to aid with ambulation. Goal Time Frame: 4-6 Weeks Goal 2:: Increase L LE strength x 1 grade to aid with stair negotiation Goal Time Frame: 4-6 Weeks Goal 3:: Pt will be able to ambulate greater than 1000 feet with LRD to promote community ambulation Goal Time Frame: 4-6 Weeks Goal 4:: I with HEP Goal Time Frame: 4-6 Weeks - Rehabilitation Potential Rehabilitation Potential: Good - Anticipated Interventions Patient/Client Instruction: Educate patient on: Condition, Plan of Care For the Purpose of:: To improve self management Therapeutic Exercise to Include: Strength training, Endurance training, Balance training, Flexibilty training, Gait and locomotor training, Active ROM, Dynamic Lumbar Stabilization For the Purpose of:: To decrease pain, To increase ROM, To improve muscle performance and motor function Cryotherapy (ice pack, ice massage): Yes For the Purpose of:: To decrease pain Thank you for the opportunity to evaluate your patient. For Medicare and Medicare HMO plans, please review the plan of care and approve it. It will need to be FAXED BACK to us at [phone] for Medicare purposes. For Medicare only, by signing this I certify the plan of care. Please let me know if there are questions or concerns regarding this plan of care. Physician Signature: Date:
--- NOTE | 2020-01-26 10:39 | HP.PTREVAL ---
Dr. Sabas Harrington MD, It has been my pleasure to treat DAYSI GASTELUM over the last 10 visits for L PREETI (robot) 12/29/19. Please see the progress note below for an update on the physical therapy plan of care! Subjective: Pt. reports being 75% better overall. Pt. reports minimal pain currently. No issues since last visit. Objective/Function: Increased some resisatnces and pt had good tolerance. No issues with PT. Pt. continues to progress very well. Pt. is progressing with his strength 4+/5 throughout, except 4/5 hip flexion. Pt. is walking with a cane, but is progressing from this AD as well. Pt. overall is doing great. Plan Plan: L LE stretching and strengthening, balance and proprio, core stab ex's, nustep, and HEP Goals Goal 1:: Decrease L hip pain x 50% to aid with ambulation. Goal Time Frame: 4-6 Weeks Goal Progress: Progressing Goal 2:: Increase L LE strength x 1 grade to aid with stair negotiation Goal Time Frame: 4-6 Weeks Goal Progress: Progressing Goal 3:: Pt will be able to ambulate greater than 1000 feet with LRD to promote community ambulation Goal Time Frame: 4-6 Weeks Goal Progress: Progressing Goal 4:: I with HEP Goal Time Frame: 4-6 Weeks Goal Progress: Progressing Anticipated Interventions Patient/Client Instruction: Educate patient on: Condition, Plan of Care For the Purpose of:: To improve self management Therapeutic Exercise to Include: Strength training, Endurance training, Balance training, Flexibilty training, Gait and locomotor training, Active ROM, Dynamic Lumbar Stabilization For the Purpose of:: To decrease pain, To increase ROM, To improve muscle performance and motor function Cryotherapy (ice pack, ice massage): Yes For the Purpose of:: To decrease pain Please do not hesitate to contact me at [phone] by phone or if you have questions or concerns regarding this new plan of care! Sincerely, Joon Finley DPT
--- NOTE | 2020-02-04 10:47 | HP.PTDCSUM ---
It has been my pleasure to treat DAYSI GASTELUM referred by Dr. Sabas Harrington MD, with the diagnosis of L PREETI (robot) 12/29/19 for a total of 13 visit(s). Discharge Date: Please see the following information for a summary of their discharge status. Subjective: I am ready for discharge L hip Pain Intensity (Out of 10): 1 % Improvement: 90 Objective/Function: L LE strength 5/5 throughout. L hip pain 1/10. Pt is able to ambulate greater than 1000' without difficulty. Pt is I with HEP. Rx goals achieved Goal 1:: Decrease L hip pain x 50% to aid with ambulation. Goal Progress: Goal Met Goal 2:: Increase L LE strength x 1 grade to aid with stair negotiation Goal Progress: Goal Met Goal 3:: Pt will be able to ambulate greater than 1000 feet with LRD to promote community ambulation Goal Progress: Goal Met Goal 4:: I with HEP Goal Progress: Goal Met Plan: Discharge If there are questions or concerns regarding this patient's physical therapy, please feel free to call me at [phone]. Thank you for the referral of this patient. Sincerely, Stanislav Borrero, PT, ATC
== END 2020-02-04 19:00 | disposition home or self-care (01) ==
LOC: PT 10:00
PROVIDERS: PCP Family Medicine; Visit Provider Specialist
DX: M16.12 Unilateral primary osteoarthritis, left hip (principal)
CPT/HCPCS: 97110; 97161; 97164

== ENCOUNTER → 2020-02-09 15:04 | Outpatient (CLI) | payer MEDICARE, OTHER, SELFPAY ==
[2019-12-29 07:24] VITALS: BMI 43.6
[2020-02-09 15:48] LABS: Hematocrit 38.7 % (40-54); Hemoglobin 13.1 g/dL (13.0-16.5); Mean Corp Hgb Conc 33.9 g/dL (32-36); Mean Corpuscular Hgb 30.7 pg (27.0-32.0); Mean Corpuscular Volume 90.6 fL (80-94); Mean Platelet Vol. 9.1 fl (6.2-12.0); Platelet Count 206 K/mm3 (150-450); RBC Distribution Width CV 13.3 % (11.6-14.6); RBC Distribution Width SD 43.8 fl (35.1-43.9); Red Blood Count 4.27 M/mm3 (4.6-6.2); White Blood Count 7.1 K/mm3 (4.4-11.0)
[2020-02-09 15:55] LABS: Protein, Urine (Random) 14.8 mg/dL (<11.9); Protein:Creat Ratio 106 mg/g CRE (0-200)
[2020-02-09 16:17] LABS: Albumin, Serum 3.6 g/dL (3.2-5.0); BUN 21 mg/dL (7-18); BUN/Creat Ratio 14.7 RATIO (10-20); Calcium,Total 8.6 mg/dL (8.5-10.1); Chloride 112 mmol/L (98-107); Creatinine, Serum 1.43 mg/dL (0.70-1.30); EST Glomerular Filtration Rate 52 mL/min (>60); Est Glom Filt Rate - Afr Amer 63 mL/min (>60); Glucose 115 mg/dL (74-106); Phosphorus 3.3 mg/dL (2.5-4.9); Potassium 4.1 mmol/L (3.5-5.1); Sodium Level 141 mmol/L (136-145)
[2020-02-09 16:53] LABS: Vitamin D,25 Hydroxy 41.7 ng/mL
[2020-02-10 09:13] LABS: PTHIN 94.7 pg/mL (18.4-80.1)
== END ==
PROVIDERS: PCP Family Medicine; Referring Provider Internal Medicine Nephrology; Visit Provider Internal Medicine Nephrology
DX: N18.3 Chronic kidney disease, stage 3 (moderate) (principal)
CPT/HCPCS: 36415; 80069; 82306; 82570; 83970; 84156; 85027

== ENCOUNTER 2020-09-29 13:47 | Emergency (ER) | payer MEDICARE, OTHER, SELFPAY ==
[2019-12-29 07:24] VITALS: BMI 43.6
[2020-09-29 13:47] VITALS: BP 206/106; PULSE 57; RESP 16; TEMP 36.6; O2SAT 98; BMI 44.6
--- NOTE | 2020-09-29 14:16 | CT_ITS ---
STUDY: CT ABDOMEN AND PELVIS WITH CONTRAST REASON FOR EXAM: Male, 69 years old. abd pain RADIATION DOSAGE (If Supplied By Facility): CTDIvol = ( 17.43 ) mGy, DLP = ( 1184.85 ) mGycm TECHNIQUE: Transaxial images were obtained from the dome of the diaphragm to the symphysis pubis without oral contrast. IV 100ML ISOVUE 300 was administered. Sagittal and coronal images were reconstructed. Individualized dose optimization techniques were used for this CT. COMPARISON: 11/16/2019 FINDINGS: The visualized lung bases are unremarkable. The visualized portions of the heart are within normal limits. Normal liver. Normal gallbladder and extrahepatic biliary system. Normal spleen. Normal pancreas. Normal bilateral adrenal glands. Possible bilateral renal cortical cysts measuring up to 10.3 cm on the left. Normal visualized stomach. Air-fluid levels noted throughout the small bowel. There is diverticulosis, with thickening of the colon wall, and pericolonic inflammation changes consistent with acute diverticulitis. The appendix is visualized and appears normal. Normal abdominal aorta. Retroaortic left renal vein. Normal inferior vena cava. Normal retroperitoneum. Normal urinary bladder. Fat-containing umbilical hernia. Normal osseous structures. CT/Abdomen/Pelvis W IV Cont ONLY IMPRESSION: Acute sigmoid diverticulitis. No perforation or abscess. Ileus. Electronically Signed: Ridge Pal MD at 16:26 EDT , Service support ,
--- NOTE | 2020-09-29 14:37 | ED.VIS.GI ---
History of Present Illness Chief Complaint: Abd Pain Informant: Patient - Abdominal Pain/Flank Pain Onset: Today Narrative: Patient is a 69-year-old male with history of diverticulitis presenting with cramping abdominal pain. Patient states it started this morning. It feels like his prior episodes of diverticulitis. He states his stools have been a smaller caliber already feels like he is having to push them through a small opening. Denies any blood in the stool. Patient states he has had 5 or 6 prior episodes of diverticulitis. Most recently he had diverticulitis on August 18 that was treated with Cipro and Flagyl and then again on September 04 which was treated with a 10-day course of clindamycin and Bactrim. He spoke with his PCP through virtual visit to recommend he come to the ER to rule out obstruction or any further pathology. Patient denies any fever or chills. He does have multiple antibiotic allergies and gets significant hives with penicillins. He sees GI, Dr. Romo and his last colonoscopy was about 5 years ago. He has an appointment to see GI on October 25. He denies any history of any abdominal surgeries. He did have a CT a month ago that showed a 9cm area of the proximal sigmoid colon that had narrowing and consistent with acute diverticulitis. This was performed in [place] as patient was out of town. Patient states he switched himself to liquids today when he started having symptoms and his pain has improved. He does note that his valsartan was doubled recently because of hypertension. Past Medical History - Allergies and Home Meds Allergies/Adverse Reactions: Allergies ciprofloxacin [From Cipro] Allergy (Verified 09/29/20 13:50) Rash metronidazole [From Flagyl] Allergy (Verified 09/29/20 13:50) Rash Penicillins [PCN] Allergy (Verified 11/16/19 11:01) Hives lisinopril Adverse Reaction (Verified 11/16/19 11:01) cough NSAIDS (Non-Steroidal Anti-Inflamma Adverse Reaction (Verified 12/14/19 08:06) liver function KIDNEY FUNCTION Thiazides Adverse Reaction (Verified 11/16/19 11:01) leg swelling Primary Care Physician: Prasanth Catherine MD [Primary Care Provider] - Martita Mathews MD [STAFF PHYSICIAN] - Past Medical History: - - CKD 3, diverticulitis, GERD, hypertension, hyperlipidemia, hypothyroid Surgical History: noncontributory Smoking Status: Never smoker Review of Systems General: Denies: Chills, Fever, Sweats Eyes: Denies: Visual changes - bilaterally, Diplopia ENT: Denies: Rhinorrhea, Sore throat Cardiovascular: Denies: Chest pain, Palpitations Respiratory: Denies: Dyspnea, Cough, Dyspnea on exertion Gastrointestinal: Reports: Abdominal pain, Constipation. Denies: Nausea, Vomiting, Diarrhea, Melena, Hematochezia Genitourinary: Denies: Dysuria, Hematuria, Frequency Musculoskeletal: Denies: Back pain, Extremity Pain Skin: Denies: Rash, Wounds Neurological: Denies: Headache, Weakness, Numbness Physical Exam Vital Signs/Narrative: Vital Signs Temp Pulse Resp BP Pulse Ox 09/29/20 13:47 97.8 F 57 L 16 206/106 H 98 Inital Vital Signs reviewed: Yes General: Well nourished, Well developed, No Acute Distress Head: Normocephalic, Atraumatic Eyes: Perrl, EOMI ENT: Moist mucous membranes, No rhinorrhea Neck: Supple, Nontender, No JVD Cardiovascular: Regular rate, Regular rhythm, No murmurs Respiratory: No distress, CTA bilaterally, Chest nontender Abdomen: Soft, Nontender, Nondistended, No masses, Hypoactive bowel sounds. Negative for: Guarding, Rebound tenderness Back: Nontender, Normal Inspection. Negative for: CVA tenderness Extremities: Nontender, No edema Skin: Normal color, No rash Neurological: Alert, Oriented x3, Cranial nerves II-XII grossly intact, Normal Strength, Normal Sensation Psychological: Normal affect, Normal Mood Diagnostic/Tx/Re-eval Clinical Impression(s) from Imaging Studies Abdomen/Pelvis CT 09/29/20 14:16 IMPRESSION: Acute sigmoid diverticulitis. No perforation or abscess. Ileus. Electronically Signed: Ridge Pal MD at 16:26 EDT , Service support , Laboratory Data 09/29/20 09/29/20 09/29/20 14:55 14:55 15:00 WBC 10.8 RBC 4.22 L Hgb 13.1 Hct 38.3 L MCV 90.8 MCH 31.0 MCHC 34.2 RDW Std Deviation 42.0 RDW Coeff of Breann 12.8 Plt Count 172 MPV 8.8 Immature Gran % (Auto) 0.400 Neut % (Auto) 73.1 H Lymph % (Auto) 12.7 L [place] % (Auto) 11.8 H Eos % (Auto) 1.4 Baso % (Auto) 0.6 Absolute Neuts (auto) 7.9 H Absolute Lymphs (auto) 1.37 Nucleated RBC % 0 Sodium 139 Potassium 4.1 Chloride 107 Carbon Dioxide 26.0 Anion Gap 6 BUN 21 H Creatinine 1.24 Estim Creat Clear Calc 57.24 Est GFR (MDRD) Af Amer 74 Est GFR (MDRD) Non-Af 61 BUN/Creatinine Ratio 16.9 Glucose 89 Calcium 8.8 Total Bilirubin 0.90 AST 16 ALT 21 Alkaline Phosphatase 56 Troponin I < 0.015 Total Protein 6.8 Albumin 3.4 Globulin 3.4 Albumin/Globulin Ratio 1.0 Lipase 111 Urine Color Yellow Urine Clarity Clear Urine pH 6.0 Ur Specific [place] 1.010 Urine Protein Negative Urine Glucose (UA) Normal Urine Ketones Negative Urine Occult Blood Negative Urine Nitrite Negative Urine Bilirubin Negative Urine Urobilinogen Normal Ur Leukocyte Esterase Negative Urine RBC 0 SEEN Urine WBC 0 SEEN Ur Squamous Epith Cells 0 SEEN Urine Bacteria 0 SEEN Urine Mucus 0 SEEN - Medical Decision Making Evaluated for 1 day of worsening abdominal pain. He appears nontoxic in no acute distress. His vital signs are significant for hypertension. His blood pressure does improve minimally with no intervention. Patient's presentation is not consistent with hypertensive emergency. He has a history of multiple episodes of diverticulitis and is having crampy abdominal pain a change in his stool caliber associated with it.He does not have a leukocytosis and CMP is normal. Troponin is normal. Lipase is normal. Urinalysis is normal and not consistent with infection. CT of abdomen pelvis with IV contrast shows acute sigmoid diverticulitis with no perforation or abscess. Does show an ileus. As patient has multiple antibiotic allergies including Cipro, Flagyl and penicillin he will be treated with clindamycin and Bactrim. He is referred to surgery for follow-up as he is having recurrent episodes of diverticulitis. He also has appointment to see his GI doctor in a month. He discharged to follow-up with his primary care doctor. Patient declines any nausea or pain medication in the ER at time of discharge. Patient is counseled on signs and symptoms requiring return to the emergency room. Patient verbalizes agreement and understand this plan. Patient discharged home in stable and improved condition. ED Disposition - Plan for ED Patient: Disposition: Home or Assisted Living Diagnosis: Acute diverticulitis, Hypertension Instructions: ED Diverticulitis Prescriptions: Smz/Tmp Ds [Bactrim Ds] 1 tablet PO BID #20 tab Transmission Status: Received by RAIZA CURRY RD Clindamycin [Cleocin] 450 mg PO TID 10 Days #90 capsule Transmission Status: Received by RAIZA CURRY RD Referrals: Prasanth Catherine MD [Primary Care Provider] - Martita Mathews MD [STAFF PHYSICIAN] -
[2020-09-29] MEDS: 0.9% Normal Saline 1,000 ML 1000 ML IV (15:04)
[2020-09-29 15:05] LABS: Absolute Lymphocyte Count 1.37 X10^3/uL (0.83-4.51); Absolute Neutrophil Count 7.9 X10^3/uL (2.0-7.7); Basophil# 0.06 X10^3/uL; Basophil% 0.6 % (0-1); Eosinophil# 0.15 X10^3/uL; Eosinophils% 1.4 % (0-5); Hematocrit 38.3 % (40-54); Hemoglobin 13.1 g/dL (13.0-16.5); Lymphocyte # 1.37 X10^3/ul (0.83-4.51); Lymphocyte % 12.7 % (19-41); Mean Corp Hgb Conc 34.2 g/dL (32-36); Mean Corpuscular Volume 90.8 fL (80-94); Mean Platelet Vol. 8.8 fl (6.2-12.0); Monocyte# 1.27 X10^3/uL; Monocyte% 11.8 % (0-10); NRBC Flagged by Analyzer 0 % (0-5); Neutrophil # 7.86 X10^3/uL (2.7-7.7); Neutrophil % 73.1 % (47-70); Platelet Count 172 K/mm3 (150-450); RBC Distribution Width CV 12.8 % (11.6-14.6); Red Blood Count 4.22 M/mm3 (4.6-6.2); White Blood Count 10.8 K/mm3 (4.4-11.0)
[2020-09-29 15:11] LABS: Bacteria 0 SEEN /hpf (None Seen); Mucous, Urine 0 SEEN /hpf (<or=2+); Red Blood Cells-Urine 0 SEEN /hpf (0-5); Squamous Epithelial Cells - UA 0 SEEN /hpf (0-5); White Blood Cells 0 SEEN /hpf (0-5)
[2020-09-29 15:15] LABS: Color, Urine Yellow (Yellow); Glucose, Dipstick Normal (Normal); Ketone-Dipstick Negative (Negative); Leukocyte Esterase-Dipstick Negative /ul (Negative); Nitrite-Dipstick Negative (Negative); Occult Blood-Urine Negative /ul (Negative); Protein-Dipstick Negative (Negative); Urine Bilirubin Dipstick Negative (Negative); Urine Clarity Clear (Clear); Urine Urobilinogen Normal (Normal)
[2020-09-29 15:25] LABS: AST(SGOT) 16 U/L (15-37); Alanine Aminotransfer ALT/SGPT 21 U/L (16-61); Albumin, Serum 3.4 g/dL (3.2-5.0); Alkaline Phosphatase 56 U/L (45-117); Anion Gap 6 (5-15); BUN 21 mg/dL (7-18); BUN/Creat Ratio 16.9 RATIO (10-20); Calcium,Total 8.8 mg/dL (8.5-10.1); Chloride 107 mmol/L (98-107); Creatinine, Serum 1.24 mg/dL (0.70-1.30); EST Glomerular Filtration Rate 61 mL/min (>60); Est Glom Filt Rate - Afr Amer 74 mL/min (>60); Estimated Creatinine Clearance 57.24 ml/min; Globulin 3.4 g/dL (2.2-4.2); Glucose 89 mg/dL (74-106); Lipase 111 U/L (73-393); Potassium 4.1 mmol/L (3.5-5.1); Protein, Total 6.8 g/dL (6.4-8.2); Sodium Level 139 mmol/L (136-145)
[2020-09-29] MEDS: Clindamycin HCl 150 MG Capsule 300 MG PO (17:23)
[2020-09-29] MEDS: Smz/Tmp Ds Tablet 1 TABLET PO (17:23)
[2020-09-29 17:26] VITALS: BP 182/94; PULSE 54; RESP 14; O2SAT 97
== END 2020-09-29 17:27 | disposition home or self-care (01) ==
PROVIDERS: Emergency Provider Emergency Medicine; PCP Family Medicine
DX: K57.32 Diverticulitis of large intestine without perforation or abscess without bleeding (principal); K56.7 Ileus, unspecified; I12.9 Hypertensive chronic kidney disease with stage 1 through stage 4 chronic kidney disease, or unspecified chronic kidney disease; N18.30 Chronic kidney disease, stage 3 unspecified; K21.9 Gastro-esophageal reflux disease without esophagitis; E78.5 Hyperlipidemia, unspecified; E03.9 Hypothyroidism, unspecified; Z88.0 Allergy status to penicillin; Z88.1 Allergy status to other antibiotic agents; Z88.6 Allergy status to analgesic agent
CPT/HCPCS: 74177; 80053; 81001; 83690; 84484; 85025; 96360; 99284; J7030; Q9967

== ENCOUNTER → 2021-01-29 13:08 | Outpatient (CLI) | payer MEDICARE, OTHER, SELFPAY ==
[2021-01-29 15:20] LABS: Hematocrit 42.7 % (40-54); Hemoglobin 14.6 g/dL (13.0-16.5); Mean Corp Hgb Conc 34.2 g/dL (32-36); Mean Corpuscular Hgb 31.3 pg (27.0-32.0); Mean Corpuscular Volume 91.4 fL (80-94); Mean Platelet Vol. 9.4 fl (6.2-12.0); Platelet Count 134 K/mm3 (150-450); RBC Distribution Width CV 12.5 % (11.6-14.6); Red Blood Count 4.67 M/mm3 (4.6-6.2); White Blood Count 4.4 K/mm3 (4.4-11.0)
[2021-01-29 15:39] LABS: Protein, Urine (Random) 42.9 mg/dL (<11.9); Protein:Creat Ratio 150 mg/g CRE (0-200)
[2021-01-29 15:42] LABS: Albumin, Serum 3.6 g/dL (3.2-5.0); BUN 22 mg/dL (7-18); BUN/Creat Ratio 13.8 RATIO (10-20); Calcium,Total 8.4 mg/dL (8.5-10.1); Chloride 108 mmol/L (98-107); EST Glomerular Filtration Rate 46 mL/min (>60); Est Glom Filt Rate - Afr Amer 55 mL/min (>60); Glucose 105 mg/dL (74-106); Phosphorus 2.9 mg/dL (2.5-4.9); Sodium Level 139 mmol/L (136-145)
[2021-01-29 15:46] LABS: Vitamin D,25 Hydroxy 42.9 ng/mL
== END ==
PROVIDERS: PCP Family Medicine; Referring Provider Internal Medicine Nephrology; Visit Provider Internal Medicine Nephrology
DX: N18.30 Chronic kidney disease, stage 3 unspecified (principal)
CPT/HCPCS: 36415; 80069; 82306; 82570; 83970; 84156; 85027

== ENCOUNTER 2021-03-08 06:02 | Day surgery (SDC) | payer MEDICARE, OTHER, SELFPAY ==
[2021-03-08 06:25] VITALS: BP 147/73; PULSE 54; RESP 16; TEMP 36.6; O2SAT 96; BMI 43.9
[2021-03-08] MEDS: Lactated Ringers 1,000 ML 100 ML IV (06:36)
--- NOTE | 2021-03-08 06:57 | PCM.HP.BLA ---
History and Physical Date of Admission: 03/08/21 69-year-old male with history of diverticulitis presenting with cramping abdominal pain. Patient states it started this morning. It feels like his prior episodes of diverticulitis. He states his stools have been a smaller caliber already feels like he is having to push them through a small opening. Denies any blood in the stool. Patient states he has had 5 or 6 prior episodes of diverticulitis. Most recently he had diverticulitis on August 18 that was treated with Cipro and Flagyl and then again on September 04 which was treated with a 10-day course of clindamycin and Bactrim. He spoke with his PCP through virtual visit to recommend he come to the ER to rule out obstruction or any further pathology. Patient denies any fever or chills. He does have multiple antibiotic allergies and gets significant hives with penicillins. He sees GI, Dr. Romo and his last colonoscopy was about 5 years ago. He has an appointment to see GI on October 25. He denies any history of any abdominal surgeries. He did have a CT a month ago that showed a 9cm area of the proximal sigmoid colon that had narrowing and consistent with acute diverticulitis. This was performed in [place] as patient was out of town. Patient states he switched himself to liquids today when he started having symptoms and his pain has improved. He does note that his valsartan was doubled recently because of hypertension. He got seen today for follow-up of his diverticulitis. He is not having any symptoms at this time. Past Medical History - Allergies and Home Meds Allergies/Adverse Reactions: Allergies ciprofloxacin [From Cipro] Allergy (Verified 09/29/20 13:50) Rash metronidazole [From Flagyl] Allergy (Verified 09/29/20 13:50) Rash Penicillins [PCN] Allergy (Verified 11/16/19 11:01) Hives lisinopril Adverse Reaction (Verified 11/16/19 11:01) cough NSAIDS (Non-Steroidal Anti-Inflamma Adverse Reaction (Verified 12/14/19 08:06) liver function KIDNEY FUNCTION Thiazides Adverse Reaction (Verified 11/16/19 11:01) leg swelling Primary Care Physician: Prasanth Catherine MD [Primary Care Provider] - Martita Mathews MD [STAFF PHYSICIAN] - Past Medical History: - - CKD 3, diverticulitis, GERD, hypertension, hyperlipidemia, hypothyroid Surgical History: noncontributory Smoking Status: Never smoker Review of Systems General: Denies: Chills, Fever, Sweats Eyes: Denies: Visual changes - bilaterally, Diplopia ENT: Denies: Rhinorrhea, Sore throat Cardiovascular: Denies: Chest pain, Palpitations Respiratory: Denies: Dyspnea, Cough, Dyspnea on exertion Gastrointestinal: Reports: Abdominal pain, Constipation. Denies: Nausea, Vomiting, Diarrhea, Melena, Hematochezia Genitourinary: Denies: Dysuria, Hematuria, Frequency Musculoskeletal: Denies: Back pain, Extremity Pain Skin: Denies: Rash, Wounds Neurological: Denies: Headache, Weakness, Numbness Physical Exam Vital Signs/Narrative: Vital Signs Temp Pulse Resp BP Pulse Ox 09/29/20 13:47 97.8 F 57 L 16 206/106 H 98 Inital Vital Signs reviewed: Yes General: Well nourished, Well developed, No Acute Distress Head: Normocephalic, Atraumatic Eyes: Perrl, EOMI ENT: Moist mucous membranes, No rhinorrhea Neck: Supple, Nontender, No JVD Cardiovascular: Regular rate, Regular rhythm, No murmurs Respiratory: No distress, CTA bilaterally, Chest nontender Abdomen: Soft, Nontender, Nondistended, No masses, Hypoactive bowel sounds. Negative for: Guarding, Rebound tenderness Back: Nontender, Normal Inspection. Negative for: CVA tenderness Extremities: Nontender, No edema Skin: Normal color, No rash Neurological: Alert, Oriented x3, Cranial nerves II-XII grossly intact, Normal Strength, Normal Sensation Psychological: Normal affect, Normal Mood Diagnostic/Tx/Re-eval Clinical Impression(s) from Imaging Studies Abdomen/Pelvis CT 09/29/20 14:16 IMPRESSION: Acute sigmoid diverticulitis. No perforation or abscess. Ileus. Electronically Signed: Ridge Pal MD at 16:26 EDT , Service support , Laboratory Data 09/29/20 09/29/20 09/29/20 14:55 14:55 15:00 WBC 10.8 RBC 4.22 L Hgb 13.1 Hct 38.3 L MCV 90.8 MCH 31.0 MCHC 34.2 RDW Std Deviation 42.0 RDW Coeff of Breann 12.8 Plt Count 172 MPV 8.8 Immature Gran % (Auto) 0.400 Neut % (Auto) 73.1 H Lymph % (Auto) 12.7 L [place] % (Auto) 11.8 H Eos % (Auto) 1.4 Baso % (Auto) 0.6 Absolute Neuts (auto) 7.9 H Absolute Lymphs (auto) 1.37 Nucleated RBC % 0 Sodium 139 Potassium 4.1 Chloride 107 Carbon Dioxide 26.0 Anion Gap 6 BUN 21 H Creatinine 1.24 Estim Creat Clear Calc 57.24 Est GFR (MDRD) Af Amer 74 Est GFR (MDRD) Non-Af 61 BUN/Creatinine Ratio 16.9 Glucose 89 Calcium 8.8 Total Bilirubin 0.90 AST 16 ALT 21 Alkaline Phosphatase 56 Troponin I < 0.015 Total Protein 6.8 Albumin 3.4 Globulin 3.4 Albumin/Globulin Ratio 1.0 Lipase 111 Urine Color Yellow Urine Clarity Clear Urine pH 6.0 Ur Specific [place] 1.010 Urine Protein Negative Urine Glucose (UA) Normal Urine Ketones Negative Urine Occult Blood Negative Urine Nitrite Negative Urine Bilirubin Negative Urine Urobilinogen Normal Ur Leukocyte Esterase Negative Urine RBC 0 SEEN Urine WBC 0 SEEN Ur Squamous Epith Cells 0 SEEN Urine Bacteria 0 SEEN Urine Mucus 0 SEEN - Medical Decision Making He will undergo colonoscopy today for evaluation of the colon. He was explained alternatives, risk, benefits including not withstanding bleeding, infection, sepsis, perforation, need for emergent and . He will have an ASA of 3. Assessment & Plan Assessment/Plan (1) Diverticulitis: PLAN: Plan is for colonoscopy
--- NOTE | 2021-03-08 07:00 | COLBX_PTH ---
PATIENT: DAYSI GASTELUM LOC: EN U#:[id number] AGE/SX: 70/M ROOM: RE03/08/[address]: Dr. Damon Barrios DO : 1950 BED: DIS: 03/08/2021 SPEC #: [id number] RECD: 03/08/21 09:51 STATUS: MIGUEL ANGEL REYung #: [id number] MARCELLO: 03/08/21 07:[address]: Damon Barrios DEPT: SURGICAL PATHOLOGY RECD BY: Candice Joe ENTERED: 03/08/21 11:34 SP TYPE: COLON BX FAMILIA DR: Dr. Prasanth Catherine MD Tissues: A - Transverse colon B - Sigmoid colon biopsy C - Rectum, NOS Procedures: Surgery Specimen Level IV HEADER OPERATION: Colonoscopy ? open access (MAC) PRE-OP DIAGNOSIS: Diverticulitis TISSUE SUBMITTED: A ? Transverse colon polyps, B ? Sigmoid colon biopsy, C ? Rectal polyp MICROSCOPIC DIAGNOSIS A. Transverse colon polyps, biopsy: Fragments of tubular adenoma. B. Sigmoid colon, biopsy: Recent mucosal hemorrhage. No evidence of colitis. C. Rectal polyp, biopsy: Tubular adenoma. AM:craig 03/09/2021 MICROSCOPIC DESCRIPTION Slides are reviewed. GROSS DESCRIPTION A - Received in fixative is one container labeled with the patient's name and designated transverse colon polyp. The specimen consists of multiple irregular fragments of light prado soft tissue that in aggregate measure 2 x 1 x 0.1 cm. The specimen is totally submitted in one cassette. B - Received in fixative is one container labeled with the patient's name and designated sigmoid colon biopsy. The specimen consists of one irregular fragment of light prado soft tissue that measures 0.5 x 0.5 x 0.1 cm. The specimen is totally submitted in one cassette. C - Received in fixative is one container labeled with the patient's name and designated rectal polyp. The specimen consists of a polypoid fragment of prado tissue measuring 1 x 0.8 x 0.3 cm. The specimen is trisected and totally submitted in one cassette. / JUSTA:craig 03/08/21 TC:1 CPT: 58372 x3
[2021-03-08 07:56] VITALS: BP 127/67; BP 147/73; PULSE 62; RESP 16; TEMP 36.2; O2SAT 94
[2021-03-08 08:00] VITALS: BP 131/80; BP 147/73; PULSE 54; RESP 16; O2SAT 95
--- NOTE | 2021-03-08 08:03 | OP.CCLET_ITS ---
02/07/2022 Prasanth Catherine Re : Colonoscopy procedure for Esvin Wiley Dorene This procedure was performed on February. My impressions and recommendations are as follows: Impressions : - Five polyps in the rectum and in the transverse colon, removed with a hot snare. Resected and retrieved. - Moderate diverticulosis in the proximal sigmoid colon. Purulent discharge was seen in association with the diverticular opening, indicative of diverticulitis. - The examination was otherwise normal on direct and retroflexion views. - Diverticulitis. - Five 5 mm, non-bleeding polyps in the colon, removed with a hot snare. Resected and retrieved. Biopsied. Recommendations : - Discharge patient to home. - High fiber diet. - Cleocin (clindamycin) 600 mg PO TID for 2 weeks. - Bactrim/Septra (trimethoprim/sulfamethoxazole) DS 1 tablet PO BID for 2 weeks. - Continue present medications. - Repeat colonoscopy in 2 years for surveillance based on pathology results. - Return to GI office in 2 weeks. My findings are described in the full procedure note, which is enclosed. If I can be of further assistance, please feel free to contact me at . Sincerely, Damon Barrios, 03/08/2021 8:03:05 AM This report has been signed electronically.
--- NOTE | 2021-03-08 08:03 | OP.COLON_ITS ---
Patient Name: Esvin Valdes Procedure Date: 03/08/2021 6:54 AM Date of : 1950 Age: 70 Procedure: Colonoscopy Indications: High risk colon cancer surveillance: Personal history of colonic polyps Providers: Damon Barrios DO Medicines: Propofol per Anesthesia, Monitored Anesthesia Care Patient Profile: This is a 70 year old male. Refer to note in patient chart for documentation of history and physical. Last Colonoscopy: 3 years ago. Complications: No immediate complications. Procedure: Pre-Anesthesia Assessment: - Prior to the procedure, a History and Physical was performed, and patient medications and allergies were reviewed. The patient is competent. The risks and benefits of the procedure and the sedation options and risks were discussed with the patient. All questions were answered and informed consent was obtained. Patient identification and proposed procedure were verified by the physician in the pre-procedure area. Mental Status Examination: alert and oriented. Airway Examination: normal oropharyngeal airway and neck mobility. Respiratory Examination: clear to auscultation. CV Examination: normal. Prophylactic Antibiotics: The patient does not require prophylactic antibiotics. Prior Anticoagulants: The patient has taken no previous anticoagulant or antiplatelet agents. ASA Grade Assessment: II - A patient with mild systemic disease. After reviewing the risks and benefits, the patient was deemed in satisfactory condition to undergo the procedure. The anesthesia plan was to use moderate sedation / analgesia (conscious sedation). Immediately prior to administration of medications, the patient was re-assessed for adequacy to receive sedatives. The heart rate, respiratory rate, oxygen saturations, blood pressure, adequacy of pulmonary ventilation, and response to care were monitored throughout the procedure. The physical status of the patient was re-assessed after the procedure. After I obtained informed consent, the scope was passed under direct vision. Throughout the procedure, the patient's blood pressure, pulse, and oxygen saturations were monitored continuously. The Colonoscope was introduced through the anus and advanced to the cecum, identified by the appendiceal orifice, ileocecal valve and palpation. The colonoscopy was performed without difficulty. The patient tolerated the procedure well. The quality of the bowel preparation was good. Moderate Sedation: Moderate (conscious) sedation was administered by the endoscopy nurse and supervised by the endoscopist. The patient's oxygen saturation, heart rate, blood pressure and response to care were monitored. Scope In: 7:23:06 AM Scope Withdrawal Time 0 hours 20 minutes 49 seconds Scope Out: 7:50:59 AM Total Procedure Duration Time 0 hours 27 minutes 53 seconds Findings: The perianal and digital rectal examinations were normal. Five sessile polyps were found in the rectum and transverse colon. These polyps were removed with a hot snare. Resection and retrieval were complete. Verification of patient identification for the specimen was done by the physician. Estimated blood loss was minimal. A few small and large-mouthed diverticula were found in the proximal sigmoid colon. Purulent discharge was seen in association with the diverticular opening, consistent with diverticulitis. The exam was otherwise without abnormality on direct and retroflexion views. Impression: - Five polyps in the rectum and in the transverse colon, removed with a hot snare. Resected and retrieved. - Moderate diverticulosis in the proximal sigmoid colon. Purulent discharge was seen in association with the diverticular opening, indicative of diverticulitis. - The examination was otherwise normal on direct and retroflexion views. - Diverticulitis. - Five 5 mm, non-bleeding polyps in the colon, removed with a hot snare. Resected and retrieved. Biopsied. Recommendation: - Discharge patient to home. - High fiber diet. - Cleocin (clindamycin) 600 mg PO TID for 2 weeks. - Bactrim/Septra (trimethoprim/sulfamethoxazole) DS 1 tablet PO BID for 2 weeks. - Continue present medications. - Repeat colonoscopy in 2 years for surveillance based on pathology results. - Return to GI office in 2 weeks. Procedure Code(s): --- Professional --- 82130, Colonoscopy, flexible; with removal of tumor(s), polyp(s), or other lesion(s) by snare technique CPT copyright 2017 [employer]. All rights reserved. The codes documented in this report are preliminary and upon hospital coder review may be revised to meet current compliance requirements. Damon Barrios DO 03/08/2021 8:03:05 AM This report has been signed electronically. Number of Addenda: 1 Note Initiated On: 03/08/2021 6:54 AM Addendum Number: 1 Addendum Date: 02/07/2022 4:12:40 PM MAC was used instead of moderate sedation for this patient. Damon Barrios DO 02/07/2022 4:12:45 PM This report has been signed electronically.
[2021-03-08 08:05] VITALS: BP 145/78; BP 147/73; PULSE 53; RESP 16; O2SAT 96
[2021-03-08 08:12] VITALS: BP 138/73; BP 147/73; PULSE 52; RESP 16; TEMP 36.5; O2SAT 97
[2021-03-08 09:09] VITALS: BP 147/73
== END 2021-03-08 09:10 ==
LOC: EN 06:04 → AC 06:06
PROVIDERS: PCP Family Medicine; Referring Provider Family Medicine; Visit Provider Internal Medicine Gastroenterology
PROC: 0DJD8ZZ Inspection of Lower Intestinal Tract, Via Natural or Artificial Opening Endoscopic (ICD-10-PCS; CPT 45378; principal; 2021-03-08 06:55)
DX: K57.32 Diverticulitis of large intestine without perforation or abscess without bleeding (principal); K62.1 Rectal polyp; E78.5 Hyperlipidemia, unspecified; E03.9 Hypothyroidism, unspecified; K21.9 Gastro-esophageal reflux disease without esophagitis; I12.9 Hypertensive chronic kidney disease with stage 1 through stage 4 chronic kidney disease, or unspecified chronic kidney disease; N18.30 Chronic kidney disease, stage 3 unspecified; Z86.010 Personal history of colon polyps; Z88.0 Allergy status to penicillin; Z88.1 Allergy status to other antibiotic agents; Z88.6 Allergy status to analgesic agent
CPT/HCPCS: 45385; 88305; J7120; J2405

== ENCOUNTER → 2021-03-22 10:07 | Outpatient (CLI) | payer MEDICARE, OTHER, SELFPAY ==
[2021-03-22 10:41] LABS: Absolute Lymphocyte Count 1.26 X10^3/uL (0.83-4.51); Absolute Neutrophil Count 3.7 X10^3/uL (2.0-7.7); Basophil# 0.07 X10^3/uL; Basophil% 1.2 % (0-1); Eosinophil# 0.17 X10^3/uL; Eosinophils% 2.8 % (0-5); Hematocrit 38.5 % (40-54); Hemoglobin 13.2 g/dL (13.0-16.5); Lymphocyte # 1.26 X10^3/ul (0.83-4.51); Mean Corp Hgb Conc 34.3 g/dL (32-36); Mean Corpuscular Hgb 31.5 pg (27.0-32.0); Mean Corpuscular Volume 91.9 fL (80-94); Mean Platelet Vol. 8.5 fl (6.2-12.0); Monocyte# 0.75 X10^3/uL; Monocyte% 12.5 % (0-10); NRBC Flagged by Analyzer 0 % (0-5); Neutrophil # 3.74 X10^3/uL (2.7-7.7); Neutrophil % 62.2 % (47-70); Platelet Count 171 K/mm3 (150-450); RBC Distribution Width CV 12.9 % (11.6-14.6); RBC Distribution Width SD 43.2 fl (35.1-43.9); Red Blood Count 4.19 M/mm3 (4.6-6.2)
[2021-03-22 10:47] LABS: Erythrocyte Sedimentation Rate 2 mm/hr (0-20)
[2021-03-22 11:29] LABS: AST(SGOT) 19 U/L (15-37); Alanine Aminotransfer ALT/SGPT 29 U/L (16-61); Albumin, Serum 3.4 g/dL (3.2-5.0); Alkaline Phosphatase 47 U/L (45-117); Anion Gap 5 (5-15); BUN 20 mg/dL (7-18); BUN/Creat Ratio 14.9 RATIO (10-20); CRP < 2.90 mg/L (0.0-3.0); Chloride 111 mmol/L (98-107); Creatinine, Serum 1.34 mg/dL (0.70-1.30); EST Glomerular Filtration Rate 56 mL/min (>60); Est Glom Filt Rate - Afr Amer 68 mL/min (>60); Globulin 3.4 g/dL (2.2-4.2); Glucose 98 mg/dL (74-106); Potassium 4.1 mmol/L (3.5-5.1); Protein, Total 6.8 g/dL (6.4-8.2); Sodium Level 142 mmol/L (136-145)
== END ==
PROVIDERS: PCP Family Medicine; Referring Provider Internal Medicine Gastroenterology; Visit Provider Internal Medicine Gastroenterology
DX: K57.92 Diverticulitis of intestine, part unspecified, without perforation or abscess without bleeding (principal); I10 Essential (primary) hypertension
CPT/HCPCS: 36415; 80053; 85025; 85652; 86140

== ENCOUNTER → 2022-02-07 | Outpatient (CLI) | payer MEDICARE, OTHER, SELFPAY ==
[2022-02-07 10:49] LABS: Hematocrit 40.1 % (40-54); Hemoglobin 13.7 g/dL (13.0-16.5); Mean Corp Hgb Conc 34.2 g/dL (32-36); Mean Corpuscular Hgb 31.3 pg (27.0-32.0); Mean Corpuscular Volume 91.6 fL (80-94); Mean Platelet Vol. 9.4 fl (6.2-12.0); Platelet Count 185 K/mm3 (150-450); RBC Distribution Width CV 12.5 % (11.6-14.6); RBC Distribution Width SD 42.3 fl (35.1-43.9); Red Blood Count 4.38 M/mm3 (4.6-6.2); White Blood Count 6.3 K/mm3 (4.4-11.0)
[2022-02-07 11:04] LABS: Protein, Urine (Random) 10.7 mg/dL (<11.9); Protein:Creat Ratio 100 mg/g CRE (0-200)
[2022-02-07 11:21] LABS: Albumin, Serum 3.6 g/dL (3.2-5.0); BUN 19 mg/dL (7-18); BUN/Creat Ratio 13.5 RATIO (10-20); Calcium,Total 9.1 mg/dL (8.5-10.1); Chloride 111 mmol/L (98-107); Creatinine, Serum 1.41 mg/dL (0.70-1.30); EST Glomerular Filtration Rate 53 mL/min (>60); Est Glom Filt Rate - Afr Amer 64 mL/min (>60); Glucose 94 mg/dL (74-106); Phosphorus 2.9 mg/dL (2.5-4.9); Potassium 4.2 mmol/L (3.5-5.1); Sodium Level 143 mmol/L (136-145); Vitamin D,25 Hydroxy 31.8 ng/mL
[2022-02-07 11:29] LABS: PTHIN 114.8 pg/mL (18.4-80.1)
== END | disposition home or self-care (01) ==
LOC: LAB 09:13
PROVIDERS: PCP Family Medicine; Visit Provider Nurse Practitioner Adult Health
DX: N18.31 Chronic kidney disease, stage 3a (principal)
CPT/HCPCS: 36415; 80069; 82306; 82570; 83970; 84156; 85027

== ENCOUNTER → 2022-11-13 | Outpatient (CLI) | payer MEDICARE, OTHER, SELFPAY | END | disposition home or self-care (01) | LOC: SL 20:07 | PROVIDERS: PCP Family Medicine; Referring Provider Family Medicine; Visit Provider Family Medicine | DX: G47.33 Obstructive sleep apnea (adult) (pediatric) (principal) | CPT/HCPCS: 95811 ==

== ENCOUNTER 2023-01-19 12:22 | Emergency (ER) | payer MEDICARE, OTHER, SELFPAY ==
[2023-01-19 12:25] VITALS: BP 162/92; PULSE 54; RESP 18; TEMP 36.1; O2SAT 95; BMI 45.5
--- NOTE | 2023-01-19 12:34 | CT_ITS ---
STUDY: CT ABDOMEN AND PELVIS WITH CONTRAST - URINARY TRACT REASON FOR EXAM: Male, 72 years old. Lower abd pain. Hx of tics RADIATION DOSAGE (If Supplied By Facility): CTDIvol = ( 21.67 ) mGy, DLP = ( 1816.10 ) mGycm TECHNIQUE: IV 100mL Isovue-300 was administered. Transaxial images were obtained from the dome of the diaphragm to the symphysis pubis subsequent to intravenous contrast administration. Multiplanar coronal and sagittal images were reformatted. Individualized Dose Optimization Techniques Were Used For This CT. COMPARISON: Prior study dated: September 29, 2020 FINDINGS: The visualized lung bases are unremarkable. The visualized portions of the heart are within normal limits. There are two too stable small to characterize within the liver which may reflect cysts or hemangiomas. Normal gallbladder and extrahepatic biliary system. Normal spleen. Normal pancreas. Normal bilateral adrenal glands. Normal visualized stomach. Normal small intestine. There are scattered diverticula arising from the colon. The colon is incompletely distended. There is circumferential wall thickening of the sigmoid colon. There is intramural fat within the ascending, transverse and descending colon suggestive of prior hyperinflation. The appendix is visualized and appears normal. There are peripheral calcifications of the abdominal aorta consistent with atherosclerosis. No retroperitoneal adenopathy. There are cysts grossly stable bilateral renal cysts. Normal urinary bladder. There is a small umbilical hernia containing fat. There are bilateral hip arthroplasties creating beam hardening artifact and obscuring anatomic detail within the pelvis. There are degenerative changes of the lumbar spine. CT/Abdomen/Pelvis W IV Cont ONLY IMPRESSION: Circumferential wall thickening of the sigmoid colon concerning for colitis or possible diverticulitis. Atherosclerosis. Bilateral renal cysts. Degenerative changes of the lumbar spine. Electronically Signed: Judy Saldivar MD at 13:46 EDT ,
--- NOTE | 2023-01-19 12:35 | ED.VIS.GI ---
HPI HPI - GI History of Present Illness Chief Complaint: Abd Pain Detail of Chief Complaint: Lower abdominal pain for several days. Informant: patient and spouse/S.O. Abdominal Pain/Flank Pain Onset: Days Context: Gradual Onset Timing: Continuous Quality: Cramping Location: LLQ Current Severity: Mild Maximum Severity: Mild Worsened by: Nothing Relieved by: Nothing Nausea/Vomiting/Emesis GI Symptom: Negative for Nausea or Vomiting Diarrhea/Melena/Hematochezia GI Symptom: Negative for Diarrhea, Melena or Hematochezia Associated Symptoms Associated Symptoms: Negative for Dysuria, Frequency or Hematuria Narrative Narrative: 72-year-old male history of hypertension. Prior diverticulitis. Prior polypectomy through the scope. No prior other abdominal surgeries. Last several days he had lower abdominal cramping. He is concerned this may be recurrent diverticulitis. No fever. No vomiting. No diarrhea or constipation. No dysuria or hematuria. Prior similar symptoms: Yes Recent Illness/Hospitalization: No PFSH PFSH Medical History Cancer Cataracts, bilateral CPAP (continuous positive airway pressure) dependence Gastric reflux High cholesterol History of deviated nasal septum History of diverticulitis History of renal disease History of stress test Hx of colonic polyp Hypertension Hypothyroid Leg cramps Non-smoker Sleep apnea Wears glasses Home Medications atorvastatin 10 mg tablet 10 mg PO QHS cholesterol #90 tabs 01/04/19 [History Last Taken Unknown] labetalol 200 mg tablet 200 mg PO BID bp #180 tabs 01/04/19 [History Last Taken 03/08/21] levothyroxine 112 mcg tablet 112 mcg PO DAILY thyroid #90 tabs 01/04/19 [History Last Taken 03/08/21] valsartan 160 mg tablet 320 mg PO DAILY bp #90 tabs 01/04/19 [History Last Taken 03/08/21] acetaminophen 500 mg tablet 500 - 1,000 mg PO DAILY pain 07/30/19 [History Last Taken Unknown] cholecalciferol (vitamin D3) 25 mcg (1,000 unit) tablet 1,000 unit PO DAILY supplement 07/30/19 [History Last Taken Unknown] multivitamin with minerals 1 ea PO DAILY supplement 07/30/19 [History Last Taken Unknown] omeprazole magnesium 20 mg tablet,delayed release 20 mg PO DAILY 12/14/19 [History Last Taken 03/08/21] ascorbic acid (vitamin C) 500 mg tablet (Vitamin C) 500 mg PO DAILY 03/05/21 [History Last Taken Unknown] coenzyme Q10 100 mg capsule (CoQ-10) 100 mg PO DAILY 03/05/21 [History Last Taken Unknown] magnesium 250 mg tablet 250 mg PO QODAY 03/05/21 [History Last Taken Unknown] Lactobac no.2-Bifidobac no.1-S. thermo 112.5 billion cell capsule (VSL#3) 1 cap PO TID #84 caps 03/08/21 [Rx Last Taken Unknown] clindamycin HCl 300 mg capsule 600 mg (2 x 300 mg) PO Q8H #42 caps 03/08/21 [Rx Last Taken Unknown] sulfamethoxazole 800 mg-trimethoprim 160 mg tablet (Bactrim DS) 1 tab PO BID #28 tabs 03/08/21 [Rx Last Taken Unknown] sildenafil 50 mg tablet (Viagra) 50 mg PO DAILY PRN 03/22/21 [History Last Taken Unknown] clindamycin HCl 150 mg capsule 300 mg (2 x 150 mg) PO Q8H 14 days #84 caps 01/19/23 [Rx Last Taken Unknown] sulfamethoxazole 800 mg-trimethoprim 160 mg tablet (Bactrim DS) 1 tab PO BID 14 days #28 tabs 01/19/23 [Rx Last Taken Unknown] Allergy/AdvReac Type Severity Reaction Status Date / Time ciprofloxacin [From Cipro] Allergy Rash Verified 01/19/23 12:24 metronidazole [From Flagyl] Allergy Rash Verified 01/19/23 12:24 Penicillins [PCN] Allergy Hives Verified 01/19/23 12:24 lisinopril AdvReac cough Verified 01/19/23 12:24 NSAIDS (Non-Steroidal AdvReac Other Verified 01/19/23 12:24 Anti-Inflamma Thiazides AdvReac leg Verified 01/19/23 12:24 swelling Surgical History History of total left hip replacement History of total right hip arthroplasty Hx of cataract extraction Hx of colonoscopy Social History Smoking Status: Never smoker ROS ROS ED ROS Narrative Lower abdominal pain. Review of Systems ROS Unobtainable: Denies due to encephalopathy Constitutional Constitutional ED: Denies chills or fever(s) ENT ENT ED: Denies ear pain Cardiovascular Cardiovascular: Denies chest pain Respiratory/Chest Respiratory/Chest: Denies cough Gastrointestinal Gastrointestinal: Reports abdominal pain; Denies constipation, diarrhea, melena, nausea or vomiting Genitourinary Genitourinary ED: Denies dysuria or hematuria Musculoskeletal Musculoskeletal: Denies arthralgias Integumentary Denies abscess Neurologic Neurologic: Denies headache(s) Psychiatric Psychiatric: Denies anxiety Endocrine Endocrinology: Denies polydipsia Hematologic/Lymphatic Hematologic/Lymphatic: Denies easy bleeding Allergic/Immunologic Allergic/Immunologic ED: Denies mouth swelling or tongue swelling EXAM Physical Exam Narrative Exam Narrative: Well-appearing 72-year-old male. Accompanied by his . Vital signs are stable afebrile. No distress. H EENT exam unremarkable. Lungs clear. Heart regular rhythm no murmur. Rate about 60. Abdomen soft, nondistended, no peritoneal signs. Very minimal suprapubic tenderness. No hernia or mass. No right upper or right lower quadrant tenderness. No distention. No pulsatile mass. Moving all 4 extremities. Trace edema in the lower legs. Symmetrical. He is awake and alert. No focal motor deficits. Const Vital Signs: 01/19/23 12:25 Temperature 97 F L Temperature Source Temporal Pulse Rate 54 L Respiratory Rate 18 Blood Pressure 162/92 H Blood Pressure Mean 115 Pulse Ox 95 Oxygen Delivery Method Room Air Positive well nourished and well developed; Negative for cachectic, contractures or unkempt General Appearance ED: well developed and NAD; Negative for unkempt, cachectic, contractures or pallor Nutritional Appearance: Negative for cachectic HEENT Reports moist mucous membranes normocephalic and atraumatic; Negative for trauma or tenderness Eyes PERRL and EOMs intact bilaterally General Eye ED: Negative for pale conjunctiva or scleral icterus Neck no lymphadenopathy, supple and no JVD General: Negative for tenderness Carotids: Negative for other Lymph Lymphatic: Negative for other Resp normal respiratory effort and clear to auscultation bilaterally Effort and Inspection: Negative for respiratory distress Auscultation: Negative for rales, rhonchi or wheezes Cardio regular rate, regular rhythm, S1 normal heart sound, S2 normal heart sound and no murmurs GI non-distended and no masses; Negative for non-tender Inspection: Negative for abdominal distention Palpation: tender; Negative for guarding, rigid, hepatomegaly, splenomegaly, hernia, mass, pulsatile mass or rebound tenderness present Extremity full ROM Extremity Narrative: Trace bilateral lower extremity edema. Equal and symmetrical. General Extremety ED: Yes edema; Negative for tenderness General Extremity: edema Neuro CN's II-XII intact bilaterally and moves all extremities Sensorium / Orientation: alert, oriented to person, oriented to place and oriented to time; Negative for orientation impaired, confused, lethargic or stuporous Motor Exam: strength 5/5 throughout Psych mental status grossly normal and thought process normal Appearance: Negative for unkempt Attitude: No agitated Mood & Affect: Negative for depressed, anxious or tearful Skin no wounds General Skin Exam: Negative for jaundice or pallor Lesions: no lesions and No lesion noted Rashes: no rashes Trauma: Negative for abrasion Nails: Negative for discolored MDM MDM MDM Narrative Medical decision making narrative: 72-year-old male with lower abdominal pain. History of diverticulitis. He has no right-sided abdominal tenderness. Clinically this does not appear to be appendicitis or cholecystitis. It does not appear to be a bowel obstruction. CAT scan and labs are pending. He did not want anything for pain or nausea. I have reviewed his prior records. Repeat exam unchanged at 2:25 PM. I went over all test results of both he and his . We treated for diverticulitis. In the past due to reaction to Flagyl and Cipro he has done well with clindamycin and Bactrim which we placed on for 2 weeks and follow-up with his GI doctor friend if he is not improving. Or his primary care physician. History & Record Review Discussion w/independent historian: Patient Additional record(s) reviewed:: Prior inpatient record, Prior outpatient record, Prior ED visit and Prior labs Lab Data Attestation: I reviewed the patient's lab results. Lab results narrative: Chemistries unremarkable. Gap of 8. BUN and creatinine 22 and 1.4 which is consistent with his chronic renal insufficiency. CBC shows a white count 9.4. H&H 13.3 and 39. Platelets 177. CAT scan CT abdomen pelvis IV contrast is consistent with sigmoid diverticulitis versus colitis. Labs: Laboratory Results - last 24 hr 01/19/23 01/19/23 01/19/23 12:50 12:50 13:10 WBC Cancelled 9.4 Corrected WBC Cancelled RBC Cancelled 4.22 L Hgb Cancelled 13.3 Hct Cancelled 39.3 L MCV Cancelled 93.1 MCH Cancelled 31.5 MCHC Cancelled 33.8 RDW Std Deviation Cancelled 42.8 RDW Coeff of Breann Cancelled 12.6 Plt Count Cancelled 177 MPV Cancelled 9.3 Immature Gran % (Auto) Cancelled 0.300 Neut % (Auto) Cancelled 76.7 H Lymph % (Auto) Cancelled 12.4 L Yancey % (Auto) Cancelled 8.9 Eos % (Auto) Cancelled 1.3 Baso % (Auto) Cancelled 0.4 Absolute Neuts (auto) Cancelled 7.2 Absolute Lymphs (auto) Cancelled 1.16 Total Counted Cancelled Neutrophils % (Manual) Cancelled Band Neutrophils % Cancelled Lymphocytes % (Manual) Cancelled Monocytes % (Manual) Cancelled Eosinophils % (Manual) Cancelled Basophils % (Manual) Cancelled Metamyelocytes % Cancelled Myelocytes % Cancelled Promyelocytes % Cancelled Blast Cells % Cancelled Plasma Cell % (Manual) Cancelled Other Cells % Cancelled Nucleated RBC % Cancelled 0 Nucleated RBCs/100 WBC Cancelled Differential Comment Cancelled Diff Path Review Cancelled Hypersegmented Neuts Cancelled Atypical Lymphocytes Cancelled Reactive Lymphocytes Cancelled Smudge Cells Cancelled Toxic Granulation Cancelled Toxic Vacuolation Cancelled Dohle Bodies Cancelled Oli Rods Cancelled Platelet Estimate Cancelled Plt Morphology Comment Cancelled RBC Morphology Cancelled Cancelled Polychromasia Cancelled Hypochromasia Cancelled Poikilocytosis Cancelled Basophilic Stippling Cancelled Anisocytosis Cancelled Microcytosis Cancelled Macrocytosis Cancelled Spherocytes Cancelled Sickle Cells Cancelled Target Cells Cancelled Tear Drop Cells Cancelled Ovalocytes Cancelled Stomatocytes Cancelled [place] Bodies Cancelled [place] Cells Cancelled Bite Cells Cancelled Crenated Cell Cancelled Acanthocytes (Spur) Cancelled Rouleaux Cancelled Schistocytes Cancelled Sodium 140 Potassium 4.2 Chloride 108 H Carbon Dioxide 24.0 Anion Gap 8 BUN 22 H Creatinine 1.40 H Estim Creat Clear Calc 48.52 Est GFR (MDRD) Af Amer 64 Est GFR (MDRD) Non-Af 53 L BUN/Creatinine Ratio 15.7 Glucose 105 Calcium 9.0 Radiography Diagnostic Testing: Clinical Impression(s) from Imaging Studies Abdomen/Pelvis CT 01/19/23 12:34 IMPRESSION: Circumferential wall thickening of the sigmoid colon concerning for colitis or possible diverticulitis. Atherosclerosis. Bilateral renal cysts. Degenerative changes of the lumbar spine. Electronically Signed: Judy Saldivar MD at 13:46 EDT Reading Location ID and State: [facility] / [place] Tel , Service support , Discharge Plan Triage Chief Complaint: Abd Pain ED Provider: John Rodas Dx/Rx/DC Orders Clinical Impression: Abdominal pain, Diverticulitis Instructions: ED Diverticulitis Prescriptions: New clindamycin HCl 150 mg capsule 300 mg PO Q8H 14 Days Qty: 84 0RF sulfamethoxazole-trimethoprim [Bactrim DS] 800-160 mg tablet 1 tab PO BID 14 Days Qty: 28 0RF No Action labetalol 200 mg tablet 200 mg PO BID Qty: 180 valsartan 160 mg tablet 320 mg PO DAILY Qty: 90 atorvastatin 10 mg tablet 10 mg PO QHS Qty: 90 levothyroxine 112 mcg tablet 112 mcg PO DAILY Qty: 90 sildenafil [Viagra] 50 mg tablet 50 mg PO DAILY PRN Rx Instructions: administer 30 minutes to 4 hours before activity acetaminophen 500 MG tablet 500 - 1,000 mg PO DAILY multivitamin with minerals 1 EACH tablet 1 ea PO DAILY cholecalciferol (vitamin D3) 1,000 UNIT tablet 1,000 unit PO DAILY omeprazole magnesium 20 MG tablet,delayed release (DR/EC) 20 mg PO DAILY ascorbic acid (vitamin C) [Vitamin C] 500 mg Tablet 500 mg PO DAILY magnesium 250 mg Tablet 250 mg PO QODAY coenzyme Q10 [CoQ-10] 100 mg Capsule 100 mg PO DAILY sulfamethoxazole-trimethoprim [Bactrim DS] 800-160 mg tablet 1 tab PO BID Qty: 28 0RF clindamycin HCl 300 mg capsule 600 mg PO Q8H Qty: 42 0RF VSL#3 112.5 billion cell capsule 1 cap PO TID Qty: 84 0RF Primary Care Provider: Prasanth Catherine Referrals: Prasanth Catherine MD [Primary Care Provider] - 1 Week if not improving Friend,DO Damon [Med Staff - Active Staff] - 1 Week if not improving Activity Restrictions/Additional Instructions: Plenty of fluids and rest. Bactrim 1 pill twice a day for 2 weeks. Clindamycin 300 mg 3 times a day for 2 weeks. Call and follow-up with either your primary care physician or Dr. Sophie if you are not improving. Motrin and Tylenol for pain. Return to the emergency department if you are feeling a lot worse, increasing pain or fever. Disposition Disposition: Home, Self Care
[2023-01-19 13:11] LABS: Anion Gap 8 (5-15); BUN 22 mg/dL (7-18); BUN/Creat Ratio 15.7 RATIO (10-20); Chloride 108 mmol/L (98-107); EST Glomerular Filtration Rate 53 mL/min (>60); Est Glom Filt Rate - Afr Amer 64 mL/min (>60); Estimated Creatinine Clearance 48.52 ml/min; Glucose 105 mg/dL (74-106); Potassium 4.2 mmol/L (3.5-5.1); Sodium Level 140 mmol/L (136-145)
[2023-01-19 13:35] LABS: Absolute Lymphocyte Count 1.16 X10^3/uL (0.83-4.51); Absolute Neutrophil Count 7.2 X10^3/uL (2.0-7.7); Basophil# 0.04 X10^3/uL; Basophil% 0.4 % (0-1); Eosinophil# 0.12 X10^3/uL; Eosinophils% 1.3 % (0-5); Hematocrit 39.3 % (40-54); Hemoglobin 13.3 g/dL (13.0-16.5); Lymphocyte # 1.16 X10^3/ul (0.83-4.51); Lymphocyte % 12.4 % (19-41); Mean Corp Hgb Conc 33.8 g/dL (32-36); Mean Corpuscular Hgb 31.5 pg (27.0-32.0); Mean Corpuscular Volume 93.1 fL (80-94); Mean Platelet Vol. 9.3 fl (6.2-12.0); Monocyte# 0.83 X10^3/uL; Monocyte% 8.9 % (0-10); NRBC Flagged by Analyzer 0 % (0-5); Neutrophil # 7.19 X10^3/uL (2.7-7.7); Neutrophil % 76.7 % (47-70); Platelet Count 177 K/mm3 (150-450); RBC Distribution Width CV 12.6 % (11.6-14.6); RBC Distribution Width SD 42.8 fl (35.1-43.9); Red Blood Count 4.22 M/mm3 (4.6-6.2); White Blood Count 9.4 K/mm3 (4.4-11.0)
[2023-01-19] MEDS: Clindamycin HCl 150 MG Capsule 300 MG PO (14:37)
[2023-01-19] MEDS: Smz/Tmp Ds Tablet 1 TABLET PO (14:37)
== END 2023-01-19 14:41 | disposition home or self-care (01) ==
PROVIDERS: Emergency Provider Emergency Medicine; PCP Family Medicine; Visit Provider Emergency Medicine
DX: K57.92 Diverticulitis of intestine, part unspecified, without perforation or abscess without bleeding (principal); I10 Essential (primary) hypertension; E78.00 Pure hypercholesterolemia, unspecified; Z99.89 Dependence on other enabling machines and devices; K21.9 Gastro-esophageal reflux disease without esophagitis; Z79.899 Other long term (current) drug therapy; E03.9 Hypothyroidism, unspecified; Z96.642 Presence of left artificial hip joint; R10.9 Unspecified abdominal pain
CPT/HCPCS: 74177; 80048; 85025; 99284; Q9967; A4216

== ENCOUNTER 2023-02-08 14:21 | Emergency (ER) | payer MEDICARE, OTHER, SELFPAY ==
[2023-02-08 14:23] VITALS: BP 173/86; PULSE 54; RESP 14; TEMP 37.2; O2SAT 94
--- NOTE | 2023-02-08 14:47 | CT_ITS ---
STUDY: CT ABDOMEN AND PELVIS WITH CONTRAST REASON FOR EXAM: Male, 72 years old. diverticulitis -- IV PO Contrast RADIATION DOSAGE (If Supplied By Facility): CTDIvol = ( 23.35 ) mGy, DLP = ( 1755.55 ) mGycm TECHNIQUE: Transaxial images were obtained from the dome of the diaphragm to the symphysis pubis without oral contrast. Oral and amp; IV Gastrografin and amp; 100mL Isovue-300 was administered. Sagittal and coronal images were reconstructed. Individualized dose optimization techniques were used for this CT. COMPARISON: 01/19/2023. FINDINGS: The visualized lung bases are unremarkable. The visualized portions of the heart are within normal limits. Tiny low-attenuation lesions identified within the liver, largest measuring 6 mm, too small to characterize and likely benign in the absence of known neoplasm such as cyst or hemangioma. Otherwise normal liver. Contracted gallbladder otherwise normal gallbladder and extrahepatic biliary system. Normal spleen. Normal pancreas. Normal bilateral adrenal glands. There are 2 low-attenuation structures within the right kidney largest seen in the upper pole measuring 2.6 cm consistent with simple renal cysts. Otherwise normal right kidney. Multiple low-attenuation structures within the left kidney, largest seen in the upper pole measuring approximately 9.2 cm. Otherwise normal left kidney. Normal visualized stomach. Normal small intestine. There is thickening of the wall throughout the descending colon and sigmoid consistent with descending colitis. There is nonspecific mild distention of the colon with nonspecific debris. The appendix is visualized and appears normal. There is diffuse atherosclerotic calcification of the abdominal aorta, without a demonstrated aneurysm. Normal inferior vena cava. Normal retroperitoneum. Normal urinary bladder. Remainder of the pelvic structures are obscured due to beam hardening artifact related to bilateral hip prosthesis. Small bilateral inguinal and umbilical hernias containing only fat. There are diffuse degenerative changes of the visualized lumbar spine. Bilateral hip prosthesis in place. CT/Abdomen/Pelvis WITH Contrast IMPRESSION: Descending colitis, slightly improved in the interval. No acute appendicitis or bowel obstruction. Unchanged liver lesions, likely benign along with stable simple renal cysts. Remainder of abdominal viscera are unremarkable. Electronically Signed: Shobha Hayward MD at 17:10 EDT ,
--- NOTE | 2023-02-08 14:49 | EX.ED.DYSGE1 ---
HPI History of Present Illness Chief Complaint: Abd Pain Informant: patient Onset/Context/Timing Onset: Days Context: Gradual Onset Narrative Narrative: Patient presents secondary to left lower quadrant pain. Patient has a history of diverticulitis and thinks he is having another flare. He was seen in the emergency room on January 19 and diagnosed with colitis versus diverticulitis. Given his antibiotic allergies he was treated with clindamycin and Bactrim which she has done well with previously. Patient finished a 14-day course of this antibiotic regimen, but does state that he started developing hives even on this medication now. He was able to treat himself with Benadryl and continue the 14-day course. Patient states his symptoms never completely resolved but were significantly improved. Over the past couple days he has now noted increasing left lower quadrant pain. No fever or chills are noted. [facility] Medical History Cancer Cataracts, bilateral CPAP (continuous positive airway pressure) dependence Gastric reflux High cholesterol History of deviated nasal septum History of diverticulitis History of renal disease History of stress test Hx of colonic polyp Hypertension Hypothyroid Leg cramps Non-smoker Sleep apnea Wears glasses Home Medications atorvastatin 10 mg tablet 10 mg PO QHS cholesterol #90 tabs 01/04/19 [History Last Taken Unknown] labetalol 200 mg tablet 200 mg PO BID bp #180 tabs 01/04/19 [History Last Taken 03/08/21] levothyroxine 112 mcg tablet 112 mcg PO DAILY thyroid #90 tabs 01/04/19 [History Last Taken 03/08/21] valsartan 160 mg tablet 320 mg PO DAILY bp #90 tabs 01/04/19 [History Last Taken 03/08/21] acetaminophen 500 mg tablet 500 - 1,000 mg PO DAILY pain 07/30/19 [History Last Taken Unknown] cholecalciferol (vitamin D3) 25 mcg (1,000 unit) tablet 1,000 unit PO DAILY supplement 07/30/19 [History Last Taken Unknown] multivitamin with minerals 1 ea PO DAILY supplement 07/30/19 [History Last Taken Unknown] omeprazole magnesium 20 mg tablet,delayed release 20 mg PO DAILY 12/14/19 [History Last Taken 03/08/21] ascorbic acid (vitamin C) 500 mg tablet (Vitamin C) 500 mg PO DAILY 03/05/21 [History Last Taken Unknown] coenzyme Q10 100 mg capsule (CoQ-10) 100 mg PO DAILY 03/05/21 [History Last Taken Unknown] magnesium 250 mg tablet 250 mg PO QODAY 03/05/21 [History Last Taken Unknown] Lactobac no.2-Bifidobac no.1-S. thermo 112.5 billion cell capsule (VSL#3) 1 cap PO TID #84 caps 03/08/21 [Rx Last Taken Unknown] clindamycin HCl 300 mg capsule 600 mg (2 x 300 mg) PO Q8H #42 caps 03/08/21 [Rx Last Taken Unknown] sulfamethoxazole 800 mg-trimethoprim 160 mg tablet (Bactrim DS) 1 tab PO BID #28 tabs 03/08/21 [Rx Last Taken Unknown] sildenafil 50 mg tablet (Viagra) 50 mg PO DAILY PRN 03/22/21 [History Last Taken Unknown] clindamycin HCl 150 mg capsule 300 mg (2 x 150 mg) PO Q8H 14 days #84 caps 01/19/23 [Rx Last Taken Unknown] sulfamethoxazole 800 mg-trimethoprim 160 mg tablet (Bactrim DS) 1 tab PO BID 14 days #28 tabs 01/19/23 [Rx Last Taken Unknown] clindamycin HCl 300 mg capsule (Cleocin HCl) 600 mg (2 x 300 mg) PO Q6H 7 days #56 CAPSULES 02/08/23 [Rx Last Taken Unknown] mesalamine 1.2 gram tablet,delayed release 1.2 g PO BID 2 weeks #28 tabs 02/08/23 [Rx Last Taken Unknown] prednisone 10 mg tablet 10 mg PO DAILY #14 tabs 02/08/23 [Rx Last Taken Unknown] Allergy/AdvReac Type Severity Reaction Status Date / Time ciprofloxacin [From Cipro] Allergy Rash Verified 02/08/23 14:22 metronidazole [From Flagyl] Allergy Rash Verified 02/08/23 14:22 Penicillins [PCN] Allergy Hives Verified 02/08/23 14:22 lisinopril AdvReac cough Verified 02/08/23 14:22 NSAIDS (Non-Steroidal AdvReac Other Verified 02/08/23 14:22 Anti-Inflamma Thiazides AdvReac leg Verified 02/08/23 14:22 swelling Surgical History History of total left hip replacement History of total right hip arthroplasty Hx of cataract extraction Hx of colonoscopy Social History Smoking Status: Never smoker ROS ROS ED Constitutional Constitutional ED: Denies chills or fever(s) Eyes Eyes: Denies discharge from eye(s) ENT ENT ED: Denies discharge from eye(s), rhinorrhea or sore throat Cardiovascular Cardiovascular: Denies chest pain or palpitations Respiratory/Chest Respiratory/Chest: Denies cough or dyspnea Gastrointestinal Gastrointestinal: Reports abdominal pain; Denies diarrhea, nausea or vomiting Genitourinary Genitourinary ED: Denies dysuria Musculoskeletal Musculoskeletal: Denies back pain or extremity pain Integumentary Denies Abrasions or rash Neurologic Neurologic: Denies headache(s) or weakness Psychiatric Psychiatric: Denies anxiety or depression Allergic/Immunologic Allergic/Immunologic ED: Denies lip swelling or urticaria EXAM Physical Exam Const Vital Signs: 02/08/23 14:23 Temperature 98.9 F Temperature Source Temporal Pulse Rate 54 L Respiratory Rate 14 Blood Pressure 173/86 H Blood Pressure Mean 115 Pulse Ox 94 Oxygen Delivery Method Room Air Positive well nourished and well developed General Appearance ED: well developed HEENT Reports normocephalic and head/scalp atraumatic Eyes PERRL and EOMs intact bilaterally Neck supple Chest Wall inspection of chest normal and palpation of chest normal Resp normal respiratory effort and clear to auscultation bilaterally Cardio regular rate and regular rhythm GI GI Narrative: Mild tenderness left lower quadrant. No guarding or rebound. Palpation: soft Extremity normal to inspection Neuro oriented x3 and no sensory deficits noted Sensorium / Orientation: alert Motor Exam: strength 5/5 throughout Psych mental status grossly normal Skin no rashes or lesions noted MDM MDM MDM Narrative Medical decision making narrative: Patient's most recent work-up is reviewed. Labwork obtained to evaluate for leukocytosis, anemia, and electrolyte derangement. CT scan of the abdomen pelvis obtained to evaluate for recurrent diverticulitis versus abscess formation from recent infection. Lab Data Attestation: I reviewed the patient's lab results. Labs: Laboratory Results - last 24 hr 02/08/23 02/08/23 14:58 15:25 WBC 8.6 RBC 4.18 L Hgb 13.1 Hct 38.9 L MCV 93.1 MCH 31.3 MCHC 33.7 RDW Std Deviation 42.5 RDW Coeff of Breann 12.4 Plt Count 194 MPV 9.2 Immature Gran % (Auto) 0.500 Neut % (Auto) 70.0 Lymph % (Auto) 16.4 L Putnam % (Auto) 11.1 H Eos % (Auto) 1.4 Baso % (Auto) 0.6 Absolute Neuts (auto) 6.1 Absolute Lymphs (auto) 1.42 Nucleated RBC % 0 Sodium 139 Potassium 4.2 Chloride 110 H Carbon Dioxide 23.0 Anion Gap 6 BUN 26 H Creatinine 1.53 H Est GFR (MDRD) Af Amer 58 L Est GFR (MDRD) Non-Af 48 L BUN/Creatinine Ratio 17.0 Glucose 113 H Calcium 8.8 Urine Color Yellow Urine Clarity Clear Urine pH 5.0 Ur Specific Inola 1.020 Urine Protein Negative Urine Glucose (UA) Normal Urine Ketones Negative Urine Occult Blood Negative Urine Nitrite Negative Urine Bilirubin Negative Urine Urobilinogen Normal Ur Leukocyte Esterase 25 H Urine RBC 0 SEEN Urine WBC 0-5 SEEN Ur Squamous Epith Cells 0 SEEN Urine Bacteria 0 SEEN Urine Mucus 0 SEEN Radiography Diagnostic Testing: Clinical Impression(s) from Imaging Studies Abdomen/Pelvis CT 02/08/23 14:47 IMPRESSION: Descending colitis, slightly improved in the interval. No acute appendicitis or bowel obstruction. Unchanged liver lesions, likely benign along with stable simple renal cysts. Remainder of abdominal viscera are unremarkable. Electronically Signed: Shobha Hayward MD at 17:10 EDT , Treatment and Re-Evaluation :: CBC was normal white count 8.6 with no left shift. Hemoglobin 13.1. Chemistry studies reveal a BUN of 26 and a creatinine 1.53. Urinalysis reveals no infection. CT scan of the abdomen pelvis with p.o. and IV contrast obtained. This reveals descending colitis that is slightly improved when compared to prior study. Patient does have allergies documented to Cipro, Flagyl, and penicillin where he gets hives. He also developed hives when he was recently on clindamycin and Bactrim. I spoke with infectious disease. They state there is really not another good oral option. If patient requires hospitalization or ertapenem could be tried with observation. Because the patient is well-known to Dr. Barrios, I did speak with him. He would like the patient to be given prednisone 10 mg a day and 1.2 g of mesalamine twice daily. He will also receive clindamycin 600 every 6 hours. Patient is comfortable with this plan. I advised him that he could still take Benadryl, but please return if he develops any concerning allergic symptoms. He voices understanding and is agreeable with the plan. Discharge Plan Triage Chief Complaint: Abd Pain ED Provider: Dianelys Yang Dx/Rx/DC Orders Clinical Impression: Colitis Instructions: ED Understanding Colitis Prescriptions: New prednisone 10 mg tablet 10 mg PO DAILY Qty: 14 0RF mesalamine 1.2 gram tablet,delayed release (DR/EC) 1.2 g PO BID 14 Days Qty: 28 0RF clindamycin HCl [Cleocin HCl] 300 mg capsule 600 mg PO Q6H 7 Days Qty: 56 0RF No Action labetalol 200 mg tablet 200 mg PO BID Qty: 180 valsartan 160 mg tablet 320 mg PO DAILY Qty: 90 atorvastatin 10 mg tablet 10 mg PO QHS Qty: 90 levothyroxine 112 mcg tablet 112 mcg PO DAILY Qty: 90 sildenafil [Viagra] 50 mg tablet 50 mg PO DAILY PRN Rx Instructions: administer 30 minutes to 4 hours before activity acetaminophen 500 MG tablet 500 - 1,000 mg PO DAILY multivitamin with minerals 1 EACH tablet 1 ea PO DAILY cholecalciferol (vitamin D3) 1,000 UNIT tablet 1,000 unit PO DAILY omeprazole magnesium 20 MG tablet,delayed release (DR/EC) 20 mg PO DAILY ascorbic acid (vitamin C) [Vitamin C] 500 mg Tablet 500 mg PO DAILY magnesium 250 mg Tablet 250 mg PO QODAY coenzyme Q10 [CoQ-10] 100 mg Capsule 100 mg PO DAILY clindamycin HCl 150 mg capsule 300 mg PO Q8H 14 Days Qty: 84 0RF sulfamethoxazole-trimethoprim [Bactrim DS] 800-160 mg tablet 1 tab PO BID 14 Days Qty: 28 0RF sulfamethoxazole-trimethoprim [Bactrim DS] 800-160 mg tablet 1 tab PO BID Qty: 28 0RF clindamycin HCl 300 mg capsule 600 mg PO Q8H Qty: 42 0RF VSL#3 112.5 billion cell capsule 1 cap PO TID Qty: 84 0RF Primary Care Provider: Prasanth Catherine Referrals: Prasanth Catherine MD [Primary Care Provider] - FriendDamon DO [Med Staff - Active Staff] - 1-2 Weeks Disposition Disposition: Home, Self Care
[2023-02-08] MEDS: 0.9% Normal Saline 1,000 ML 150 ML IV (15:05)
[2023-02-08 15:10] LABS: Absolute Lymphocyte Count 1.42 X10^3/uL (0.83-4.51); Absolute Neutrophil Count 6.1 X10^3/uL (2.0-7.7); Basophil# 0.05 X10^3/uL; Basophil% 0.6 % (0-1); Eosinophil# 0.12 X10^3/uL; Eosinophils% 1.4 % (0-5); Hematocrit 38.9 % (40-54); Hemoglobin 13.1 g/dL (13.0-16.5); Lymphocyte # 1.42 X10^3/ul (0.83-4.51); Lymphocyte % 16.4 % (19-41); Mean Corp Hgb Conc 33.7 g/dL (32-36); Mean Corpuscular Hgb 31.3 pg (27.0-32.0); Mean Corpuscular Volume 93.1 fL (80-94); Mean Platelet Vol. 9.2 fl (6.2-12.0); Monocyte# 0.96 X10^3/uL; Monocyte% 11.1 % (0-10); NRBC Flagged by Analyzer 0 % (0-5); Neutrophil # 6.05 X10^3/uL (2.7-7.7); Platelet Count 194 K/mm3 (150-450); RBC Distribution Width CV 12.4 % (11.6-14.6); RBC Distribution Width SD 42.5 fl (35.1-43.9); Red Blood Count 4.18 M/mm3 (4.6-6.2); White Blood Count 8.6 K/mm3 (4.4-11.0)
[2023-02-08 15:32] LABS: Anion Gap 6 (5-15); BUN 26 mg/dL (7-18); Calcium,Total 8.8 mg/dL (8.5-10.1); Chloride 110 mmol/L (98-107); Creatinine, Serum 1.53 mg/dL (0.70-1.30); EST Glomerular Filtration Rate 48 mL/min (>60); Est Glom Filt Rate - Afr Amer 58 mL/min (>60); Glucose 113 mg/dL (74-106); Potassium 4.2 mmol/L (3.5-5.1); Sodium Level 139 mmol/L (136-145)
[2023-02-08 15:34] LABS: Bacteria 0 SEEN /hpf (None Seen); Mucous, Urine 0 SEEN /hpf (<or=2+); Red Blood Cells-Urine 0 SEEN /hpf (0-5); Squamous Epithelial Cells - UA 0 SEEN /hpf (0-5)
[2023-02-08 15:38] LABS: Color, Urine Yellow (Yellow); Glucose, Dipstick Normal (Normal); Ketone-Dipstick Negative (Negative); Leukocyte Esterase-Dipstick 25 /ul (Negative); Nitrite-Dipstick Negative (Negative); Occult Blood-Urine Negative /ul (Negative); Protein-Dipstick Negative (Negative); Urine Bilirubin Dipstick Negative (Negative); Urine Clarity Clear (Clear); Urine Urobilinogen Normal (Normal)
[2023-02-08 15:45] LABS: White Blood Cells 0-5 SEEN /hpf (0-5)
[2023-02-08 18:34] VITALS: BP 139/71; PULSE 64; RESP 15; O2SAT 97
[2023-02-08] MEDS: Clindamycin HCl 150 MG Capsule 600 MG PO (18:54)
[2023-02-08 18:58] VITALS: BP 132/76; PULSE 71; RESP 15; O2SAT 98
[2023-02-08] MEDS: predniSONE 10 MG Tablet PO (19:14)
[2023-02-08] MEDS: MESALAMINE 400 MG CAPSULE.DR 1200 MG PO (19:14)
[2023-02-08 19:18] VITALS: BMI 44.9
== END 2023-02-08 19:18 | disposition home or self-care (01) ==
PROVIDERS: Emergency Provider Emergency Medicine; PCP Family Medicine; Visit Provider Emergency Medicine
DX: K52.9 Noninfective gastroenteritis and colitis, unspecified (principal); I10 Essential (primary) hypertension; E78.00 Pure hypercholesterolemia, unspecified; E03.9 Hypothyroidism, unspecified; K21.9 Gastro-esophageal reflux disease without esophagitis; Z79.899 Other long term (current) drug therapy
CPT/HCPCS: 74177; 80048; 81001; 85025; 96360; 96361; 99284; J7030; Q9967; A4216

== ENCOUNTER → 2023-02-12 | Outpatient (CLI) | payer MEDICARE, OTHER, SELFPAY ==
[2023-02-12 12:32] LABS: Hematocrit 37.2 % (40-54); Mean Corp Hgb Conc 34.9 g/dL (32-36); Mean Corpuscular Hgb 32.1 pg (27.0-32.0); Mean Corpuscular Volume 91.9 fL (80-94); Platelet Count 187 K/mm3 (150-450); RBC Distribution Width CV 12.7 % (11.6-14.6); RBC Distribution Width SD 42.5 fl (35.1-43.9); Red Blood Count 4.05 M/mm3 (4.6-6.2); White Blood Count 7.8 K/mm3 (4.4-11.0)
[2023-02-12 12:46] LABS: PTHIN 112.5 pg/mL (18.4-80.1)
[2023-02-12 12:48] LABS: Vitamin D,25 Hydroxy 39.2 ng/mL
[2023-02-12 13:05] LABS: Albumin, Serum 3.6 g/dL (3.2-5.0); BUN 22 mg/dL (7-18); BUN/Creat Ratio 15.7 RATIO (10-20); Calcium,Total 8.8 mg/dL (8.5-10.1); Chloride 108 mmol/L (98-107); EST Glomerular Filtration Rate 53 mL/min (>60); Est Glom Filt Rate - Afr Amer 64 mL/min (>60); Glucose 117 mg/dL (74-106); Phosphorus 3.1 mg/dL (2.5-4.9); Sodium Level 138 mmol/L (136-145)
[2023-02-12 13:23] LABS: CRP < 2.90 mg/L (0.0-3.0)
[2023-02-12 13:42] LABS: Erythrocyte Sedimentation Rate 1 mm/hr (0-20)
== END | disposition home or self-care (01) ==
LOC: LAB 11:48
PROVIDERS: Internal Medicine Gastroenterology; PCP Family Medicine; Referring Provider Internal Medicine Nephrology; Visit Provider Internal Medicine Nephrology
DX: N18.31 Chronic kidney disease, stage 3a (principal)
CPT/HCPCS: 36415; 80069; 82306; 82570; 83970; 85027; 85049; 85652; 86140

== ENCOUNTER → 2023-02-17 | Outpatient (CLI) | payer MEDICARE, OTHER, SELFPAY ==
[2023-02-19 16:09] LABS: Calprotectin, Stool 29 ug/g (0-120)
[2023-02-23 01:06] LABS: Pancreatic Elastase, Fecal > 500 (>200)
== END | disposition home or self-care (01) ==
PROVIDERS: PCP Family Medicine; Referring Provider Internal Medicine Gastroenterology; Visit Provider Internal Medicine Gastroenterology
DX: K52.9 Noninfective gastroenteritis and colitis, unspecified (principal)
CPT/HCPCS: 82653; 83630; 83993; 87177; 87209; 87329; 87493

== ENCOUNTER → 2024-01-26 | Outpatient (CLI) | payer MEDICARE, OTHER, SELFPAY ==
[2024-01-26 17:11] LABS: Albumin, Serum 3.6 g/dL (3.2-5.0); BUN 21 mg/dL (7-18); BUN/Creat Ratio 13.2 RATIO (10-20); Calcium,Total 8.6 mg/dL (8.5-10.1); Chloride 112 mmol/L (98-107); Creatinine, Serum 1.59 mg/dL (0.70-1.30); EST Glomerular Filtration Rate 46 mL/min (>60); Est Glom Filt Rate - Afr Amer 55 mL/min (>60); Glucose 110 mg/dL (74-106); Phosphorus 2.9 mg/dL (2.5-4.9); Potassium 4.3 mmol/L (3.5-5.1); Sodium Level 140 mmol/L (136-145)
[2024-01-26 20:29] LABS: Protein:Creat Ratio 86 mg/g CRE (0-200)
== END | disposition home or self-care (01) ==
LOC: BIMLAB 15:10
PROVIDERS: PCP Family Medicine; Referring Provider Internal Medicine Nephrology; Visit Provider Internal Medicine Nephrology
DX: N18.31 Chronic kidney disease, stage 3a (principal)
CPT/HCPCS: 36415; 80069; 82570; 84156

== ENCOUNTER 2024-09-23 05:27 | Day surgery (SDC) | payer MEDICARE, OTHER, SELFPAY ==
[2024-09-23] VITALS (8 sets, daily range): BP systolic 114–157; BP diastolic 69–86; PULSE 54–57; RESP 16–18; TEMP 36.2–37.1; O2SAT 93–97; BMI 45.2
--- NOTE | 2024-09-23 06:11 | PCM.PRE.AN2 ---
ASA Classification* ASA Classification ASA Classification: 3 Assessment & Plan Anesthesia* Anesthesia Assessment Anesthesia Assessment: Discussed sedation and/or anesthesia options, risks, benefits, and alternatives with patient/parents/legal guardian/POA. Questions invited. The patient/parents/legal guardian/POA seems to understand and agrees to proceed with anesthesia plan. Reviewed the physical assessment, medical history, allergy history and patient home medications list prior to surgery/procedure/anesthetic and documented any changes. Performed airway and anesthesia risk assessments. Anesthesia Type Anesthesia Type: MAC Anesthesia Focused Assessment* Temperature: 98.5 F Pulse Rate: 54 Blood Pressure: 157/75 Respiratory Rate: 16 Pulse Ox: 95 Airway Assessment Mouth opens: >3 cm Mallampati Score: II Focused Labs Anesthesia Preop lab: CBC WBC 7.8 K/mm3 (4.4-11.0) 02/12/23 11:53 02/12/23 RBC 4.05 M/mm3 (4.6-6.2) L 02/12/23 11:53 02/12/23 Hgb 13.0 g/dL (13.0-16.5) 02/12/23 11:53 02/12/23 Hct 37.2 % (40-54) L 02/12/23 11:53 02/12/23 Plt Count 187 K/mm3 (150-450) 02/12/23 11:53 02/12/23 CHEMISTRY Potassium 4.3 mmol/L (3.5-5.1) 01/26/24 15:15 01/26/24 Sodium 140 mmol/L (136-145) 01/26/24 15:15 01/26/24 Phosphorus 2.9 mg/dL (2.5-4.9) 01/26/24 15:15 01/26/24 BUN 21 mg/dL (7-18) H 01/26/24 15:15 01/26/24 Creatinine 1.59 mg/dL (0.70-1.30) H 01/26/24 15:15 01/26/24 Glucose 110 mg/dL (74-106) H 01/26/24 15:15 01/26/24 POC Glucose 99 mg/dL (70-110) 12/29/19 07:21 12/29/19 TSH 2.66 uIU/mL (0.358-3.74) 12/15/19 08:10 12/15/19 COAG Pre-Assessment Diagnosis/Proposed Procedure Planned Operative Procedure(s): Colonoscopy Anesthesia History 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 When Was Last Pacemaker Check QUESTION #4 FULL TEXT: You/Your Family Experience fever (hyperthermia) with Anesthesia Last Oral Intake Last Oral intake: Last Oral Intake NPO since 02:30 09/23/24 05:59 Meds taken in AM with sips of No 09/23/24 05:59 water? Meds patient instructed to take am of surgery PONV PONV - chief librarian extension department: PONV - chief librarian extension department Female No 09/17/24 10:15 HX of Motion Sickness No 09/17/24 10:15 HX of N/V After Surgery No 09/17/24 10:15 Non-Smoker Yes 09/17/24 10:15 Duration of Surgery greater No 09/17/24 10:15 than 60 minutes Number of Risk Factors 1 09/17/24 10:15 PONV Score Low Risk 09/17/24 10:15 Height & Weight Height & Weight: Anesthesia: Height & Weight Height 5 ft 10 in 09/23/24 05:59 Weight: 143 kg 09/23/24 05:59 Body Mass Index (BMI) 45.2 09/23/24 05:59 Respiratory Assessment Respiratory Assessment - chief librarian extension department: Respiratory Tract Infection Hx - chief librarian extension department Hx Respiratory Tract Infection No 09/17/24 10:15 STOP Sleep Apnea STOP Sleep Apnea - chief librarian extension department: STOP Sleep Apnea - chief librarian extension department Hx Hypertension Yes 09/17/24 10:15 Hx Sleep Apnea Yes 09/17/24 10:15 CPAP Yes 09/17/24 10:15 BIPAP No 09/17/24 10:15 Do you snore loudly (louder than talking or can be heard Do you often feel tired/ fatigued/ sleepy during daytime? Has anyone observed you stop breathing during sleep? STOP Results Positive 09/17/24 10:15 QUESTION #5 FULL TEXT : Do you snore loudly (louder than talking or can be heard through closed doors)? 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 Specify any problems Hx of Preganancy in last 3 N/A 09/17/24 10:15 Months Nurse Filling Out Transfusion JZOLLINGE 09/17/24 10:15 & Questions: Date: 09/17/24 09/17/24 10:15 Time: 10:17 09/17/24 10:15 Patient unable to answer at this time (ie. confused, unrespo /Reproduction History /Reproductive History - chief librarian extension department: /Reproductive Hx- chief librarian extension department Hx Now No 09/17/24 10:15 Gestational Age (in weeks): EDC: Hx Hx Para Hx Section SAB No 09/17/24 10:15 PFSH Medical History Alcohol use Heartburn History of echocardiogram Cataracts, bilateral Hypothyroid Wears glasses Cancer History of renal disease High cholesterol History of diverticulitis Gastric reflux Non-smoker Sleep apnea CPAP (continuous positive airway pressure) dependence Leg cramps Hypertension History of stress test History of deviated nasal septum Hx of colonic polyp Home Medications ?Medication ?Instructions ?Recorded ?Last Taken ?Type atorvastatin 10 mg tablet 10 mg PO QHS cholesterol #90 tabs 01/04/19 Unknown History labetalol 200 mg tablet 200 mg PO BID bp #180 tabs 01/04/19 09/23/24 02:30 History levothyroxine 112 mcg tablet 112 mcg PO DAILY thyroid #90 tabs 01/04/19 09/23/24 02:30 History valsartan 160 mg tablet 320 mg PO DAILY bp #90 tabs 01/04/19 09/23/24 02:30 History acetaminophen 500 mg tablet 500 - 1,000 mg PO DAILY PRN pain 07/30/19 Unknown History cholecalciferol (vitamin D3) 25 1,000 unit PO DAILY supplement 07/30/19 Unknown History mcg (1,000 unit) tablet multivitamin with minerals 1 ea PO DAILY supplement 07/30/19 Unknown History omeprazole magnesium 20 mg 20 mg PO DAILY 12/14/19 09/23/24 02:30 History tablet,delayed release ascorbic acid (vitamin C) 500 mg 500 mg PO DAILY 03/05/21 Unknown History tablet (Vitamin C) coenzyme Q10 100 mg capsule 100 mg PO DAILY 03/05/21 Unknown History (CoQ-10) magnesium 250 mg tablet 250 mg PO QODAY 03/05/21 Unknown History Lactobac no.2-Bifidobac no.1-S. 1 cap PO TID #84 caps 03/08/21 Unknown Rx thermo 112.5 billion cell capsule (VSL#3) sildenafil 50 mg tablet (Viagra) 50 mg PO DAILY PRN ED 03/22/21 Unknown History amlodipine 2.5 mg tablet 2.5 mg PO DAILY 09/17/24 09/23/24 02:30 History zinc 15 mg tablet 15 mg PO QODAY 09/17/24 Unknown History Allergy/AdvReac Type Severity Reaction Status Date / Time ciprofloxacin (From Cipro) Allergy Rash Verified 09/23/24 05:55 metronidazole (From Flagyl) Allergy Rash Verified 09/23/24 05:55 Penicillins (PCN) Allergy Hives Verified 09/23/24 05:55 sulfamethoxazole (From AdvReac Mild HIVES Verified 09/23/24 05:55 Sulfamethoxazole-Trimethoprim) trimethoprim (From AdvReac Mild HIVES Verified 09/23/24 05:55 Sulfamethoxazole-Trimethoprim) lisinopril AdvReac cough Verified 09/23/24 05:55 NSAIDS (Non-Steroidal AdvReac Other Verified 09/23/24 05:55 Anti-Inflamma Thiazides AdvReac leg Verified 09/23/24 05:55 swelling Surgical History Hx of cataract extraction History of total right hip arthroplasty History of total left hip replacement Hx of colonoscopy Social History Smoking Status: Never smoker Review of Systems (Anesthesia) ROS Narrative System reviewed and no additional complaints, except as documented.
--- NOTE | 2024-09-23 06:30 | COLBX_PTH ---
PATIENT: DAYSI GASTELUM LOC: EN U#:[id number] AGE/SX: 73/M ROOM: RE09/23/[address]: Dr. Damon Barrios DO : 1950 BED: DIS: 09/23/2024 SPEC #: [id number] RECD: 09/23/24 09:52 STATUS: MIGUEL ANGEL REYung #: [id number] MARCELLO: 09/23/24 06:[address]: Damon Barrios DEPT: SURGICAL PATHOLOGY RECD BY: Clementine Costa ENTERED: 09/23/24 11:32 SP TYPE: COLON BX OT DR: Dr. Prasanth Catherine MD Tissues: A - COLON BIOPSY B - Transverse colon Procedures: Surgery Specimen Level IV HEADER OPERATION: Colonoscopy with biopsy PRE-OP DIAGNOSIS: Diverticulitis TISSUE SUBMITTED: A- Hepatic flexure polyp biopsy, B- Transverse colon polyp biopsy MICROSCOPIC DIAGNOSIS A. Colon, hepatic flexure, polyp, biopsy: * Tubular adenoma B. Transverse colon, polyp, biopsy: * Tubular adenoma MICROSCOPIC DESCRIPTION Slides are reviewed. GROSS DESCRIPTION A. Received in formalin in a container labeled with the patient's name, date of , and hepatic flexure polyp biopsy are multiple prado-pink fragments of mucosal tissue measuring 1.3 x 0.8 x 0.2 cm in aggregate. Submitted in toto in A1. B. Received in formalin in a container labeled with the patient's name, date of , and transverse colon polyp biopsy is a 0.4 x 0.3 x 0.2 cm fragment of prado-pink mucosal tissue. Submitted in toto in B1. [facility] 09/24/2024 CPT:40579n8
--- NOTE | 2024-09-23 06:56 | PCM.HP.STD ---
HPI - General General Date of Admission: 09/23/24 Date of Service: 09/23/24 Chief Complaint: diverticulitis HPI Narrative He has a history of recurrent diverticulitis. He has been treated several times in the last year for acute recurrent diverticulitis. He had a colonoscopy performed 03/08/21 through open access and presents today for follow up regarding diverticulitis with inflammation. Denies active symptoms at this time. Five polyps removed with resection, moderate diverticulosis in the sigmoid colon with purulent discharge, diverticulitis. Recommendations included, high fiber diet, clindamycin, Bactrim/septra. Biopsies results tubular adenoma and recent mucosal hemorrhage consistent with segmental colitis associated with diverticulosis. Antibiotics finished and tolerated well. He says that his brother recently had a segmental resection secondary to what was thought to be possibly a malignant lesion and it turned out to be a benign lesion in the sigmoid colon. He did not know what this lesion was that was removed. OV 09/29/23 Pt here for FU has not had diverticulitis since feb. Has intermittent LLQ pain. Reports soft bowl movements 5 times a day. Continues taking Omeprazole and VSL#3. Denies blood in stool. [facility] Medical History Alcohol use Heartburn History of echocardiogram Cataracts, bilateral Hypothyroid Wears glasses Cancer History of renal disease High cholesterol History of diverticulitis Gastric reflux Non-smoker Sleep apnea CPAP (continuous positive airway pressure) dependence Leg cramps Hypertension History of stress test History of deviated nasal septum Hx of colonic polyp Home Medications ?Medication ?Instructions ?Recorded ?Last Taken ?Type atorvastatin 10 mg tablet 10 mg PO QHS cholesterol #90 tabs 01/04/19 Unknown History labetalol 200 mg tablet 200 mg PO BID bp #180 tabs 01/04/19 09/23/24 02:30 History levothyroxine 112 mcg tablet 112 mcg PO DAILY thyroid #90 tabs 01/04/19 09/23/24 02:30 History valsartan 160 mg tablet 320 mg PO DAILY bp #90 tabs 01/04/19 09/23/24 02:30 History acetaminophen 500 mg tablet 500 - 1,000 mg PO DAILY PRN pain 07/30/19 Unknown History cholecalciferol (vitamin D3) 25 1,000 unit PO DAILY supplement 07/30/19 Unknown History mcg (1,000 unit) tablet multivitamin with minerals 1 ea PO DAILY supplement 07/30/19 Unknown History omeprazole magnesium 20 mg 20 mg PO DAILY 12/14/19 09/23/24 02:30 History tablet,delayed release ascorbic acid (vitamin C) 500 mg 500 mg PO DAILY 03/05/21 Unknown History tablet (Vitamin C) coenzyme Q10 100 mg capsule 100 mg PO DAILY 03/05/21 Unknown History (CoQ-10) magnesium 250 mg tablet 250 mg PO QODAY 03/05/21 Unknown History Lactobac no.2-Bifidobac no.1-S. 1 cap PO TID #84 caps 03/08/21 Unknown Rx thermo 112.5 billion cell capsule (VSL#3) sildenafil 50 mg tablet (Viagra) 50 mg PO DAILY PRN ED 03/22/21 Unknown History amlodipine 2.5 mg tablet 2.5 mg PO DAILY 09/17/24 09/23/24 02:30 History zinc 15 mg tablet 15 mg PO QODAY 09/17/24 Unknown History Allergy/AdvReac Type Severity Reaction Status Date / Time ciprofloxacin (From Cipro) Allergy Rash Verified 09/23/24 05:55 metronidazole (From Flagyl) Allergy Rash Verified 09/23/24 05:55 Penicillins (PCN) Allergy Hives Verified 09/23/24 05:55 sulfamethoxazole (From AdvReac Mild HIVES Verified 09/23/24 05:55 Sulfamethoxazole-Trimethoprim) trimethoprim (From AdvReac Mild HIVES Verified 09/23/24 05:55 Sulfamethoxazole-Trimethoprim) lisinopril AdvReac cough Verified 09/23/24 05:55 NSAIDS (Non-Steroidal AdvReac Other Verified 09/23/24 05:55 Anti-Inflamma Thiazides AdvReac leg Verified 09/23/24 05:55 swelling Surgical History Hx of cataract extraction History of total right hip arthroplasty History of total left hip replacement Hx of colonoscopy Social History Smoking Status: Never smoker ROS Constitutional Constitutional: Denies fatigue, fever(s), poor appetite, weight gain or weight loss Gastrointestinal Gastrointestinal: Denies belching, bloating, change in bowel habits, change in stool character, chewing difficulty, coffee ground emesis, constipation, cramping, diarrhea, dyspepsia, dysphagia, early satiety, excessive flatus, fecal incontinence, heartburn, hematemesis, hematochezia, hemorrhoids, loose stools, melena, nausea, odynophagia, rectal bleeding, tenesmus, vomiting or weight changes Vital Signs Vital Signs Vital Signs: 09/23/24 05:59 09/23/24 05:59 09/23/24 06:11 Temperature 98.5 F 98.5 F Temperature Source Temporal Pulse Rate 54 L 54 L Respiratory Rate 16 16 Respiratory Pattern Normal Blood Pressure 157/75 H 157/75 H Blood Pressure Mean 102 Blood Pressure Source Monitor Blood Pressure Position Sitting Blood Pressure Location Left Arm Pulse Ox 95 95 Oxygen Delivery Method Room Air Weight Weight: 315 lb 4.176 oz Body Mass Index (BMI) 45.2 Physical Exam Const alert, oriented x3, no apparent distress and healthy appearing General Appearance: cooperative GI normal to inspection, nondistended, normoactive bowel sounds, soft to palpation, non-tender and non-distended Percussion: normal to percussion Rectal Exam: deferred Assessment & Plan Assessment/Plan (1) Diverticulitis: PLAN: Assessment and Plan Assessment and Plan (1) Diverticulitis: Status: Suspected Plan: Acute recurrent diverticulitis. I will check a CBC, CMP, ESR, CRP. We will continue on probiotic once a day. May increase to twice a day. There is also possibility of adding mesalamine to prevent segmental colitis associated with diverticulitis. This has been shown to be very efficacious in regarding treatment of acute recurrent diverticulitis. However he is doing very well with VSL #3. He is having about 4 bowel movements a day without any tenesmus, abdominal pain, cramping, bloating or lower GI bleeding. We will repeat his colonoscopy next year. Medications: Discontinued sulfamethoxazole-trimethoprim 800-160 mg (Bactrim DS) Discontinued Reason: Pt no longer taking 1 TAB PO BID 28 tabs 0RF clindamycin HCl Discontinued Reason: Pt no longer taking 600 mg (2 x 300 mg) PO Q8H 42 caps 0RF sulfamethoxazole-trimethoprim 800-160 mg (Bactrim DS) Discontinued Reason: Pt no longer taking 1 TAB PO BID 14 days 28 tabs 0RF mesalamine Discontinued Reason: Pt no longer taking 1.2 grams PO BID 2 weeks 28 tabs 0RF clindamycin HCl Discontinued Reason: Pt no longer taking 300 mg (2 x 150 mg) PO Q8H 14 days 84 caps 0RF K57.92 - Diverticulitis of intestine, part unspecified, without perforation or abscess without bleeding clindamycin HCl (Cleocin HCl) Discontinued Reason: Pt no longer taking 600 mg (2 x 300 mg) PO Q6H 7 days 56 CAPSULES 0RF
--- NOTE | 2024-09-23 07:36 | PCM.POST.ANE ---
Anesthesia: Postop Eval I Current Vital Signs Temperature: 97.1 F Pulse Rate: 57 Blood Pressure: 125/72 Respiratory Rate: 17 Pulse Ox: 97 Oxygen Delivery Method: Room Air Assessment Airway patent: Yes Spontaneous unlabored respirations: Yes Mental status: Awake and Calm nausea: No Vomiting: No Anesthesia Complication: No Fluid Hydration Crystalloid volume administer (ml): 60 Total IV fluid infused: 60 Progress Note Anesthesia document: Postop Eval 1 completed: Yes
--- NOTE | 2024-09-23 07:46 | OP.COLON_ITS ---
Patient Name: Esvin Valdes Procedure Date: 09/23/2024 6:43 AM Date of : 1950 Age: 73 Procedure: Colonoscopy Indications: Follow-up for history of adenomatous polyps in the colon, Abnormal CT of the GI tract, Diverticulitis Providers: Damon Barrios DO Referring MD: Prasanth Catherine Medicines: Monitored Anesthesia Care Patient Profile: This is a 73 year old male. Refer to note in patient chart for documentation of history and physical. Last Colonoscopy: 3 years ago. Complications: No immediate complications. Procedure: Pre-Anesthesia Assessment: - Prior to the procedure, a History and Physical was performed, and patient medications and allergies were reviewed. The patient is competent. The risks and benefits of the procedure and the sedation options and risks were discussed with the patient. All questions were answered and informed consent was obtained. Patient identification and proposed procedure were verified by the physician in the pre-procedure area. Mental Status Examination: alert and oriented. Airway Examination: normal oropharyngeal airway and neck mobility. Respiratory Examination: clear to auscultation. CV Examination: normal. Prophylactic Antibiotics: The patient does not require prophylactic antibiotics. Prior Anticoagulants: The patient has taken no anticoagulant or antiplatelet agents. ASA Grade Assessment: III - A patient with severe systemic disease. After reviewing the risks and benefits, the patient was deemed in satisfactory condition to undergo the procedure. The anesthesia plan was to use monitored anesthesia care (MAC). Immediately prior to administration of medications, the patient was re-assessed for adequacy to receive sedatives. The heart rate, respiratory rate, oxygen saturations, blood pressure, adequacy of pulmonary ventilation, and response to care were monitored throughout the procedure. The physical status of the patient was re-assessed after the procedure. After I obtained informed consent, the scope was passed under direct vision. Throughout the procedure, the patient's blood pressure, pulse, and oxygen saturations were monitored continuously. The Colonoscope was introduced through the anus and advanced to the cecum, identified by appendiceal orifice and ileocecal valve. The colonoscopy was performed without difficulty. The patient tolerated the procedure well. The quality of the bowel preparation was adequate. The ileocecal valve, appendiceal orifice, and rectum were photographed. Scope In: 7:12:39 AM Scope Withdrawal Time 0 hours 8 minutes 23 seconds Scope Out: 7:29:00 AM Total Procedure Duration Time 0 hours 16 minutes 21 seconds Findings: The perianal and digital rectal examinations were normal. Three sessile polyps were found in the transverse colon and hepatic flexure. The polyps were 6 mm in size. These polyps were removed with a cold snare. Resection and retrieval were complete. Verification of patient identification for the specimen was done. Estimated blood loss was minimal. These polyps were removed with a jumbo cold forceps. Resection and retrieval were complete. Verification of patient identification for the specimen was done. Estimated blood loss was minimal. Multiple small and large-mouthed diverticula were found in the recto-sigmoid colon, sigmoid colon and descending colon. The exam was otherwise without abnormality on direct and retroflexion views. Impression: - Three 6 mm polyps in the transverse colon and at the hepatic flexure, removed with a cold snare and removed with a jumbo cold forceps. Resected and retrieved. - Diverticulosis in the recto-sigmoid colon, in the sigmoid colon and in the descending colon. - The examination was otherwise normal on direct and retroflexion views. Recommendation: - Discharge patient to home. - Resume previous diet. - Continue present medications. - Await pathology results. - Repeat colonoscopy in 3 years for surveillance. Procedure Code(s): --- Professional --- 81954, Colonoscopy, flexible; with removal of tumor(s), polyp(s), or other lesion(s) by snare technique CPT copyright 2021 [employer]. All rights reserved. The codes documented in this report are preliminary and upon media arts professor review may be revised to meet current compliance requirements. Damon Barrios DO 09/23/2024 7:45:11 AM This report has been signed electronically. Number of Addenda: 0 Note Initiated On: 09/23/2024 6:43 AM
--- NOTE | 2024-09-23 07:46 | OP.CCLET_ITS ---
09/23/2024 Prasanth Catherine Re : Colonoscopy procedure for Esvin Reavesr Dorene This procedure was performed on September. My impressions and recommendations are as follows: Impressions : - Three 6 mm polyps in the transverse colon and at the hepatic flexure, removed with a cold snare and removed with a jumbo cold forceps. Resected and retrieved. - Diverticulosis in the recto-sigmoid colon, in the sigmoid colon and in the descending colon. - The examination was otherwise normal on direct and retroflexion views. Recommendations : - Discharge patient to home. - Resume previous diet. - Continue present medications. - Await pathology results. - Repeat colonoscopy in 3 years for surveillance. My findings are described in the full procedure note, which is enclosed. If I can be of further assistance, please feel free to contact me at . Sincerely, Damon Barrios, 09/23/2024 7:45:11 AM This report has been signed electronically.
--- NOTE | 2024-09-23 07:52 | PCM.POSTANE2 ---
Anesthesia Postop Eval I Sum Postop Eval Completion status Anesthesia document: Postop Eval 1 completed: Yes Anesthesia Postop Eval I Summary Anesthesia Postop Eval I Summary: Anesthesia Postop Eval I: Assessment Summary Airway patent Yes 09/23/24 07:37 [email or web address] Spontaneous unlabored Yes 09/23/24 07:37 [email or web address] respirations Mental status Awake,Calm 09/23/24 07:37 [email or web address] nausea No 09/23/24 07:37 [email or web address] Vomiting No 09/23/24 07:37 [email or web address] Anesthesia Postop Eval I: Fluid Summary Crystalloid volume administer 60 09/23/24 07:37 [email or web address] (ml) Colloids volume administered ( ml) Blood Product volume administered (ml) Total IV fluid infused 60 09/23/24 07:37 [email or web address] Anesthesia Postop Eval I: Summary Notes Anesthesia Complication No 09/23/24 07:37 [email or web address] Anesthesia Complication Comment: Post-operative progress note Anesthesia: Postop Eval II Evaluation Mental status: Awake Pain Level: 0 nausea: No Vomiting: No
== END 2024-09-23 08:14 | disposition home or self-care (01) ==
LOC: EN 05:30 → AC 05:31
PROVIDERS: PCP Family Medicine; Referring Provider Family Medicine; Visit Provider Internal Medicine Gastroenterology
PROC: 0DJD8ZZ Inspection of Lower Intestinal Tract, Via Natural or Artificial Opening Endoscopic (ICD-10-PCS; CPT 45378; principal; 2024-09-23 06:25)
DX: K57.92 Diverticulitis of intestine, part unspecified, without perforation or abscess without bleeding (principal); I10 Essential (primary) hypertension; Z86.0101 Personal history of adenomatous and serrated colon polyps; K21.9 Gastro-esophageal reflux disease without esophagitis; E78.00 Pure hypercholesterolemia, unspecified; K57.30 Diverticulosis of large intestine without perforation or abscess without bleeding; D12.3 Benign neoplasm of transverse colon
CPT/HCPCS: 45385; 88305; A4216; J2405

== ENCOUNTER → 2025-01-13 | Outpatient (CLI) | payer MEDICARE, OTHER, SELFPAY ==
--- NOTE | 2025-01-13 13:41 | CT_ITS ---
PROCEDURE: CT ABDOMEN/PELVIS WITH CONTRAST 01/13/2025 REASON FOR EXAM: ABD PAIN, DIVERTICULITIS TECHNIQUE: CT ABDOMEN/PELVIS WITH CONTRAST. Coronal and Sagittal reconstruction series were provided. CONTRAST: Isovue 370 VOLUME: 98 mL One or more dose reduction techniques were used (e.g., Automated exposure control, adjustment of the mA and/or kV according to patient size, use of iterative reconstruction technique. RADIATION DOSE SUMMARY: DLP: 1981.2 mGycm COMPARISON: Abdominal CT 02/08/2023. FINDINGS: Lung bases: Clear. Liver: No significant abnormality. Subcentimeter hypodense lesion in the anterior right lobe is most likely a benign cyst versus hemangioma. Gallbladder: Unremarkable. No biliary ductal dilatation. Spleen: Normal size and morphology. Pancreas: Unremarkable. Adrenals: Unremarkable. Kidneys: Grossly normal in size with symmetric enhancement. Multiple bilateral simple appearing renal cysts, greater in size and number on the left. No urolithiasis or hydronephrosis. Bladder: Underdistended, grossly unremarkable. Reproductive Organs: Prostate grossly normal in size, largely obscured by streak artifact. Bowel: Unremarkable stomach and small bowel. No evidence of obstruction. Normal appendix. Moderate distal colonic diverticulosis. Subtle mild wall thickening and inflammatory fat stranding along the proximal sigmoid colon likely reflects mild/early diverticulitis. Lymph nodes: No enlarged abdominopelvic lymph nodes. Vasculature: Abdominal aorta is tortuous but normal in caliber. Mild atherosclerotic disease. Peritoneum / Retroperitoneum: No ascites or free air. Musculoskeletal: Small fat containing bilateral inguinal and umbilical hernias. Bilateral hip arthroplasties, with intact appearing hardware. Mild degenerative changes of the visualized spine. CT/Abdomen/Pelvis WITH Contrast IMPRESSION: Probable mild/early diverticulitis of the proximal sigmoid colon. No other acute or active inflammatory intra-abdominal pathology identified. Reading Location: [id number]
[2025-01-13 14:03] LABS: Hematocrit 37.9 % (40-54); Hemoglobin 13.1 g/dL (13.0-16.5); Immature Granulocytes Count 0.030 X10^3/uL (0.0-0.0); Mean Corp Hgb Conc 34.6 g/dL (32-36); Mean Corpuscular Volume 92.4 fL (80-94); Mean Platelet Vol. 9.3 fl (6.2-12.0); NRBC Flagged by Analyzer 0 % (0-5); Platelet Count 196 K/mm3 (150-450); RBC Distribution Width CV 12.7 % (11.6-14.6); RBC Distribution Width SD 43.3 fl (35.1-43.9); Red Blood Count 4.10 M/mm3 (4.6-6.2); White Blood Count 7.2 K/mm3 (4.4-11.0)
[2025-01-13 15:01] LABS: AST(SGOT) 22 U/L (<=37); Alanine Aminotransfer ALT/SGPT 19 U/L (<=46); Albumin, Serum 4.2 g/dL (3.4-4.8); Alkaline Phosphatase 56 U/L (40-129); Anion Gap 12 (5-15); BUN 22 mg/dL (4-19); BUN/Creat Ratio 15.6 RATIO (10-20); Calcium,Total 9.6 mg/dL (7.6-11.0); Carbon Dioxide 21.9 mmol/L (21.0-32.0); Chloride 107 mmol/L (98-108); Globulin 2.5 g/dL (2.2-4.2); Glucose 125 mg/dL (70-99); Potassium 4.1 mmol/L (3.3-5.1)
== END | disposition home or self-care (01) ==
LOC: CT 13:34
PROVIDERS: PCP Family Medicine; Referring Provider Student in an Organized Health Care Education/Training Program; Visit Provider Student in an Organized Health Care Education/Training Program
DX: R10.9 Unspecified abdominal pain (principal); K57.92 Diverticulitis of intestine, part unspecified, without perforation or abscess without bleeding
CPT/HCPCS: 36415; 74177; 80053; 85025; Q9967; A4216

== ENCOUNTER 2025-01-26 14:21 | Emergency (ER) | payer MEDICARE, OTHER, SELFPAY ==
[2025-01-26 14:22] VITALS: BP 159/84; PULSE 58; RESP 20; TEMP 36.7; O2SAT 97
[2025-01-26 14:36] LABS: Hematocrit 38.8 % (40-54); Hemoglobin 13.6 g/dL (13.0-16.5); Immature Granulocytes Count 0.020 X10^3/uL (0.0-0.0); Mean Corp Hgb Conc 35.1 g/dL (32-36); Mean Corpuscular Volume 91.3 fL (80-94); Mean Platelet Vol. 9.1 fl (6.2-12.0); NRBC Flagged by Analyzer 0 % (0-5); Platelet Count 195 K/mm3 (150-450); RBC Distribution Width CV 12.9 % (11.6-14.6); RBC Distribution Width SD 42.5 fl (35.1-43.9); Red Blood Count 4.25 M/mm3 (4.6-6.2); White Blood Count 8.0 K/mm3 (4.4-11.0)
[2025-01-26 15:03] LABS: AST(SGOT) 29 U/L (<=37); Alanine Aminotransfer ALT/SGPT 21 U/L (<=46); Albumin, Serum 4.2 g/dL (3.4-4.8); Alkaline Phosphatase 56 U/L (40-129); Anion Gap 12 (5-15); BUN 21 mg/dL (4-19); BUN/Creat Ratio 15.1 RATIO (10-20); Calcium,Total 9.5 mg/dL (7.6-11.0); Carbon Dioxide 20.6 mmol/L (21.0-32.0); Chloride 106 mmol/L (98-108); Globulin 2.6 g/dL (2.2-4.2); Glucose 97 mg/dL (70-99); Lipase 38 U/L (13-75); Potassium 4.5 mmol/L (3.3-5.1)
--- NOTE | 2025-01-26 15:09 | ED.VIS.GI ---
HPI HPI - GI History of Present Illness Chief Complaint: Abd Pain Informant: patient Narrative Narrative: Recurrent diverticulitis pain today left lower quadrant. 2 weeks ago had symptoms follow-up with his GI office had CT scan lab work possible diverticulitis. Multiple allergies was given clindamycin every 6 hours and doxycycline twice a day for 7 days. Symptoms improved he finished it 6 days ago. Today while laying on the floor cleaning under his fridge pain came back. No fever or chills. Pain was more significant earlier however now subsided. Tried calling GI office unable to get a call back. He has had total of 5 episodes of diverticulitis now. He is required second round of antibiotics previously. There has been discussion with him follow-up with general surgery however he has not seen surgery. No abdominal surgeries in the past. Prior similar symptoms: Yes PFSH PFSH Medical History Alcohol use Heartburn History of echocardiogram Cataracts, bilateral Hypothyroid Wears glasses Cancer History of renal disease High cholesterol History of diverticulitis Gastric reflux Non-smoker Sleep apnea CPAP (continuous positive airway pressure) dependence Leg cramps Hypertension History of stress test History of deviated nasal septum Hx of colonic polyp Home Medications ?Medication ?Instructions ?Recorded ?Last Taken ?Type atorvastatin 10 mg tablet 10 mg PO QHS cholesterol #90 tabs 01/04/19 Unknown History labetalol 200 mg tablet 200 mg PO BID bp #180 tabs 01/04/19 09/23/24 02:30 History levothyroxine 112 mcg tablet 112 mcg PO DAILY thyroid #90 tabs 01/04/19 09/23/24 02:30 History valsartan 160 mg tablet 320 mg PO DAILY bp #90 tabs 01/04/19 09/23/24 02:30 History acetaminophen 500 mg tablet 500 - 1,000 mg PO DAILY PRN pain 07/30/19 Unknown History cholecalciferol (vitamin D3) 25 1,000 unit PO DAILY supplement 07/30/19 Unknown History mcg (1,000 unit) tablet multivitamin with minerals 1 ea PO DAILY supplement 07/30/19 Unknown History omeprazole magnesium 20 mg 20 mg PO DAILY 12/14/19 09/23/24 02:30 History tablet,delayed release ascorbic acid (vitamin C) 500 mg 500 mg PO DAILY 03/05/21 Unknown History tablet (Vitamin C) coenzyme Q10 100 mg capsule 100 mg PO DAILY 03/05/21 Unknown History (CoQ-10) magnesium 250 mg tablet 250 mg PO QODAY 03/05/21 Unknown History Lactobac no.2-Bifidobac no.1-S. 1 cap PO TID #84 caps 03/08/21 Unknown Rx thermo 112.5 billion cell capsule (VSL#3) sildenafil 50 mg tablet (Viagra) 50 mg PO DAILY PRN ED 03/22/21 Unknown History amlodipine 2.5 mg tablet 2.5 mg PO DAILY 09/17/24 09/23/24 02:30 History zinc 15 mg tablet 15 mg PO QODAY 09/17/24 Unknown History clindamycin HCl 300 mg capsule 300 mg PO Q6H #74 CAPSULES 01/26/25 Unknown Rx (Cleocin HCl) doxycycline monohydrate 100 mg 100 mg PO BID #28 tabs 01/26/25 Unknown Rx tablet Allergy/AdvReac Type Severity Reaction Status Date / Time ciprofloxacin (From Cipro) Allergy Rash Verified 09/23/24 05:55 metronidazole (From Flagyl) Allergy Rash Verified 09/23/24 05:55 Penicillins (PCN) Allergy Hives Verified 09/23/24 05:55 sulfamethoxazole (From AdvReac Mild HIVES Verified 09/23/24 05:55 Sulfamethoxazole-Trimethoprim) trimethoprim (From AdvReac Mild HIVES Verified 09/23/24 05:55 Sulfamethoxazole-Trimethoprim) lisinopril AdvReac cough Verified 09/23/24 05:55 NSAIDS (Non-Steroidal AdvReac Other Verified 09/23/24 05:55 Anti-Inflamma Thiazides AdvReac leg Verified 09/23/24 05:55 swelling Surgical History Hx of cataract extraction History of total right hip arthroplasty History of total left hip replacement Hx of colonoscopy Social History Smoking Status: Never smoker ROS ROS ED Constitutional Constitutional ED: Denies fever(s) Cardiovascular Cardiovascular: Denies chest pain Respiratory/Chest Respiratory/Chest: Denies cough Gastrointestinal Gastrointestinal: Reports abdominal pain; Denies diarrhea or vomiting Musculoskeletal Musculoskeletal: Denies none Integumentary Denies rash or wounds Neurologic Neurologic: Denies weakness EXAM Physical Exam Const Vital Signs: 01/26/25 14:22 01/26/25 15:59 01/26/25 17:00 Temperature 98.1 F Temperature Source Temporal Pulse Rate 58 L 55 L 51 L Respiratory Rate 20 H 14 16 Blood Pressure 159/84 H 172/72 H 168/74 H Blood Pressure Mean 109 105 105 Pulse Ox 97 98 99 Oxygen Delivery Method Room Air Room Air Room Air 01/26/25 17:22 Temperature 98.1 F Temperature Source Pulse Rate 51 L Respiratory Rate 16 Blood Pressure 168/74 H Blood Pressure Mean 105 Pulse Ox 99 Oxygen Delivery Method Positive well nourished and well developed General Appearance ED: well developed and NAD HEENT Reports moist mucous membranes normocephalic and atraumatic Eyes General Eye ED: Yes normal appearance of both eyes Neck full ROM Chest Wall Chest: Negative for tenderness Resp normal respiratory effort and normal air movement Effort and Inspection: symmetric chest movement; Negative for respiratory distress Cardio regular rate, regular rhythm and no murmurs Peripheral Pulses: pulses 2+ throughout GI normal to inspection, nondistended, normoactive bowel sounds GI Narrative: Negative Uribe's or McBurney's. There is mild pain left lower quadrant. There is no guarding or rebound. Palpation: Negative for guarding or rebound tenderness present Extremity normal to inspection General Extremety ED: Negative for edema or tenderness General Extremity: Negative for edema Neuro oriented x3 and no sensory deficits noted Sensorium / Orientation: awake and alert Skin no rashes or lesions noted and no wounds MDM MDM MDM Narrative Medical decision making narrative: Interventions / MDM: Differential diagnosis: Clinical diverticulitis, left lower quadrant abdominal pain, CKD Diagnosis considered but do not suspect: No clinical pneumoperitoneum My EKG interpretation: N/A Imaging independently reviewed and interpreted by myself: N/A External documents reviewed: CT scan from 13 days ago early diverticulitis noted sigmoid colon. Test considered but not ordered:N/A ED course:. Patient recurrent diverticular pain. Symptoms restarted today. There is no guarding or rebound. No concern for complicated diverticulitis currently. Labs ordered from nursing protocol. He declines any pain medicines. Will dose with IV clindamycin and IV Doxy as he is tolerated these. Will reevaluate. 1615: Labs stable white count 8. Creatinine 1.3 stable from previous labs. Normal lipase. Currently still having his antibiotics infused at this time. Discussed lab results with the patient. Discussed did not feel the need to rescan as he has no pain out of proportion. He agrees. Will continue antibiotics for up to 14 days as recurrent symptoms. Discussed tricked return precautions. He is referred to general surgery as he has recurrent diverticulitis. Also referred back to his GI team and his PCP. All questions were answered. Re-evaluation: stable Disposition discussed with patient/family/significant other: Patient Case discussed with consulting clinician: N/A This note was generated with [employer] dictation software. It may contain incorrect words, spelling, and punctuation that were not noted in checking the note before signing. Lab Data Attestation: I reviewed the patient's lab results. Labs: Laboratory Results - last 24 hr 01/26/25 14:30 WBC 8.0 RBC 4.25 L Hgb 13.6 Hct 38.8 L MCV 91.3 MCH 32.0 MCHC 35.1 RDW Std Deviation 42.5 RDW Coeff of Breann 12.9 Plt Count 195 MPV 9.1 Immature Gran % (Auto) 0.300 Neut % (Auto) 64.2 Lymph % (Auto) 21.6 Dolores % (Auto) 11.8 H Eos % (Auto) 1.6 Baso % (Auto) 0.5 Absolute Neuts (auto) 5.1 Absolute Lymphs (auto) 1.72 Nucleated RBC % 0 Sodium 138 Potassium 4.5 Chloride 106 Carbon Dioxide 20.6 L Anion Gap 12 BUN 21 H Creatinine 1.38 H Est GFR (MDRD) Non-Af 53 L BUN/Creatinine Ratio 15.1 Glucose 97 Calcium 9.5 Total Bilirubin 0.60 AST 29 ALT 21 Alkaline Phosphatase 56 Total Protein 6.8 Albumin 4.2 Globulin 2.6 Albumin/Globulin Ratio 1.6 Lipase 38 Discharge Plan Triage Chief Complaint: Abd Pain ED Provider: Ronald Felipe Dx/Rx/DC Orders Clinical Impression: Diverticulitis, CKD (chronic kidney disease), Abdominal pain, LLQ Instructions: CKD Dc, Diverticulitis Dc Prescriptions: New clindamycin HCl [Cleocin HCl] 300 mg capsule 300 mg PO Q6H Qty: 74 0RF doxycycline monohydrate 100 mg tablet 100 mg PO BID Qty: 28 0RF No Action labetalol 200 mg tablet 200 mg PO BID Qty: 180 valsartan 160 mg tablet 320 mg PO DAILY Qty: 90 atorvastatin 10 mg tablet 10 mg PO QHS Qty: 90 levothyroxine 112 mcg tablet 112 mcg PO DAILY Qty: 90 sildenafil [Viagra] 50 mg tablet 50 mg PO DAILY PRN (Reason: ED) Rx Instructions: administer 30 minutes to 4 hours before activity acetaminophen 500 MG tablet 500 - 1,000 mg PO DAILY PRN (Reason: pain) multivitamin with minerals 1 EACH tablet 1 ea PO DAILY cholecalciferol (vitamin D3) 1,000 UNIT tablet 1,000 unit PO DAILY omeprazole magnesium 20 MG tablet,delayed release (DR/EC) 20 mg PO DAILY ascorbic acid (vitamin C) [Vitamin C] 500 mg Tablet 500 mg PO DAILY magnesium 250 mg Tablet 250 mg PO QODAY coenzyme Q10 [CoQ-10] 100 mg Capsule 100 mg PO DAILY amlodipine 2.5 mg tablet 2.5 mg PO DAILY zinc 15 mg tablet 15 mg PO QODAY VSL#3 112.5 billion cell capsule 1 cap PO TID Qty: 84 0RF Primary Care Provider: Prasanth Catherine Referrals: Prasanth Catherine MD [Primary Care Provider] - 1-2 Weeks Damon Barrios DO [Med Staff - Active Staff] - 1-2 Weeks Sabas Menon MD [Med Staff - Active Staff] - 1-2 Weeks Activity Restrictions/Additional Instructions: Blood work stable. White count 8. Creatinine 1.38 similar from previous. You are given clindamycin doxycycline in the ED 4 times daily. Take antibiotic as prescribed. If you develop worsening pain fevers, return to the ED for reevaluation. Follow-up with general surgery due to recurrent diverticulitis for outpatient evaluation and further treatment options. Follow-up with Dr. Barrios. Print Language: Armenian Disposition Disposition: Home, Self Care Discharge Date/Time: 01/26/25 17:23
[2025-01-26 15:10] VITALS: BMI 46.5
[2025-01-26] MEDS: Clindamycin 300 MG in Dextrose 5%-Water (50mL Bag) 50 ML 150 MG IV (15:56)
[2025-01-26] MEDS: Doxycycline 100 MG in 0.9% Normal Saline (250mL Bag) 250 ML 250 MG IV (15:58)
[2025-01-26 15:59] VITALS: BP 172/72; PULSE 55; RESP 14; O2SAT 98
--- NOTE | 2025-01-26 16:11 | ED.RN ---
this rn assumes care at this time.
[2025-01-26 17:00] VITALS: BP 168/74; PULSE 51; RESP 16; O2SAT 99
[2025-01-26 17:22] VITALS: BP 168/74; PULSE 51; RESP 16; TEMP 36.7; O2SAT 99
== END 2025-01-26 17:23 | disposition home or self-care (01) ==
PROVIDERS: Emergency Provider Emergency Medicine; PCP Family Medicine; Visit Provider Emergency Medicine
DX: K57.32 Diverticulitis of large intestine without perforation or abscess without bleeding (principal); E78.00 Pure hypercholesterolemia, unspecified; I12.9 Hypertensive chronic kidney disease with stage 1 through stage 4 chronic kidney disease, or unspecified chronic kidney disease; N18.9 Chronic kidney disease, unspecified; R10.32 Left lower quadrant pain; K21.9 Gastro-esophageal reflux disease without esophagitis
CPT/HCPCS: 80053; 83690; 85025; 96360; 99283; A4216